=== PATIENT | male | born 1940 | race Caucasian/White ===

== ENCOUNTER 2019-01-11 15:04 | Inpatient (IN) | payer MEDICARE, BC ==
[~2019-01-11] VITALS: Ht 175.3 cm; Wt 79.6 kg
[2019-01-11 15:10] VITALS: BP 98/56
--- NOTE | 2019-01-11 15:10 | NUR ---
ED Nurse Note: Patient came to ER via ambulance from SNF facility. Patient is here for an abormal lab. Patient is a dialysis patient with a hemodialysis access on the right upper chest. Patient has wounds on the sacral region, bilateral hips, and right foot and heel. patient has a left aka. Patient AAOx 3, patient came in on nasal cannula oxygen of 4L/min. No respiratory distress noted. No cardiac distress noted. Placed patient on school lunch monitor.
--- NOTE | 2019-01-11 15:11 | Emergency Room Report ---
History of Present Illness General Chief Complaint: Abnormal Labs Source: Patient Present Illness HPI 78-year-old male history of stroke, end-stage renal disease dialysis Thursday presents with elevated BUN and creatinine, patient was sent in for further dialysis, apparently his dialysis catheter was having issues yesterday when he was receiving dialysis. Patient denies any fever chills chest pain shortness of breath patient feels completely fine, his elevated BUN CR was elevated yesterday alleviated by dialysis aggravated by not having dialysis. Severity is mild. patient presents for dialysis. Allergies: Coded Allergies: PENICILLINS (Verified Allergy, Unknown, 01/11/19) Patient History Past Medical History: see triage record Reviewed Nursing Documentation: PMH: Agreed; PSxH: Agreed Nursing Documentation-PMH Past Medical History: No History, Except For Hx Hypertension: Yes - HYPERLIPIDEMIA Hx Diabetes: Yes Hx Dialysis: Yes Review of Systems All Other Systems: negative except mentioned in HPI Physical Exam Vital Signs Date Time Temp Pulse Resp B/P (MAP) Pulse Ox O2 Delivery O2 Flow Rate FiO2 01/11/19 15:01 98.2 75 20 136/61 (86) 96 Room Air Sp02 EP Interpretation: reviewed, normal General Appearance: well appearing, no apparent distress, alert Head: normocephalic, atraumatic Eyes: bilateral eye PERRL, bilateral eye EOMI, bilateral eye conjunctivae pale ENT: uvula midline, moist mucus membranes Neck: supple, thyroid normal, supple/symm/no masses Respiratory: no respiratory distress, no retraction, no accessory muscle use, crackles Cardiovascular #1: normal peripheral pulses, regular rate, rhythm, no edema, no gallop, no murmur Gastrointestinal: non tender, soft, no guarding, no rebound Musculoskeletal: normal inspection Neurologic: alert, responsive, other - contractures Psychiatric: mood/affect normal Skin: warm/dry, other - bed sores present Medical Decision Making Diagnostic Impression: Primary Impression: Abnormal laboratory test result Additional Impressions: Inadequate dialysis Dialysis patient Signs and symptoms of anemia ER Course 78-year-old male presents with increased BUN and creatinine, concern for not enough dialysis patient was having issues with dialysis 01/10/2019 Patient found to have interstitial edema as well as an elevated BUN and creatinine as well as signs symptoms of anemia We will send patient to telemetry for more dialysis and possible transfusion deferring to primary. Laboratory Tests Test 01/11/19 15:20 White Blood Count 11.0 K/UL (4.8-10.8) H Red Blood Count 2.58 M/UL (4.70-6.10) L Hemoglobin 7.4 G/DL (14.2-18.0) L Hematocrit 23.0 % (42.0-52.0) L Mean Corpuscular Volume 89 FL (80-99) Mean Corpuscular Hemoglobin 28.6 PG (27.0-31.0) Mean Corpuscular Hemoglobin Concent 32.1 G/DL (32.0-36.0) Red Cell Distribution Width 15.3 % (11.6-14.8) H Platelet Count 292 K/UL (150-450) Mean Platelet Volume 5.0 FL (6.5-10.1) L Neutrophils (%) (Auto) % (45.0-75.0) Lymphocytes (%) (Auto) % (20.0-45.0) Monocytes (%) (Auto) % (1.0-10.0) Eosinophils (%) (Auto) % (0.0-3.0) Basophils (%) (Auto) % (0.0-2.0) Neutrophils % (Manual) Pending Lymphocytes % (Manual) Pending Platelet Estimate Pending Platelet Morphology Pending Sodium Level 137 MMOL/L (136-145) Potassium Level 4.1 MMOL/L (3.5-5.1) Chloride Level 97 MMOL/L (98-107) L Carbon Dioxide Level 27 MMOL/L (21-32) Anion Gap 13 mmol/L (5-15) Blood Urea Nitrogen 158 mg/dL (7-18) H Creatinine 5.3 MG/DL (0.55-1.30) H Estimate Glomerular Filtration Rate mL/min (>60) Glucose Level 192 MG/DL (74-106) H Calcium Level 9.1 MG/DL (8.5-10.1) Phosphorus Level 3.3 MG/DL (2.5-4.9) Magnesium Level 2.4 MG/DL (1.8-2.4) Total Bilirubin 0.3 MG/DL (0.2-1.0) Aspartate Amino Transferase (AST) 32 U/L (15-37) Alanine Aminotransferase (ALT) 30 U/L (12-78) Alkaline Phosphatase 171 U/L (46-116) H Total Protein 7.4 G/DL (6.4-8.2) Albumin 1.8 G/DL (3.4-5.0) L Globulin 5.6 g/dL Albumin/Globulin Ratio 0.3 (1.0-2.7) L Lipase 226 U/L (73-393) EKG Diagnostic Results EKG Time: 15:18 EP Interpretation: NSR, rate 71, QTc 45, no acute ST elevations, normal axis Rhythm Strip Diag. Results Rhythm Strip Time: 16:46 EP Interpretation: yes Rate: 76 Rhythm: NSR, no PVC's, no ectopy Chest X-Ray Diagnostic Results Chest X-Ray Diagnostic Results : Chest X-Ray Ordered: Yes # of Views/Limited/Complete: 1 View Indication: Other - preop EP Interpretation: Yes Interpretation: other - Interstitial edema Impression: Other - interstitial edema Last Vital Signs Date Time Temp Pulse Resp B/P (MAP) Pulse Ox O2 Delivery O2 Flow Rate FiO2 01/11/19 15:01 98.2 75 20 136/61 (86) 96 Room Air Disposition: ADMITTED INPATIENT Condition: Stable Yon Osorio MD Jan 11, 2019 15:11
--- NOTE | 2019-01-11 15:23 | NUR ---
ED Nurse Note: x-ray at bedside
--- NOTE | 2019-01-11 15:56 | Diagnostic Imaging Report ---
Indication: Dyspnea Comparison: None A single view chest radiograph was obtained. Findings: Reticular and groundglass opacities demonstrated throughout both lung sevilla. Right jugular permacath is in good position. Heart is mildly enlarged. The bones are osteopenic. IMPRESSION: Suspicion of interstitial edema. Correlate clinically
[2019-01-11 16:00] VITALS: BP 105/45
--- NOTE | 2019-01-11 16:10 | NUR ---
ED Nurse Note: Patient resting in bed, AAOx3 and no complaints of pain noted. Patient has no signs of respiratory distress or cardiac distress.
[2019-01-11 16:27] LABS: ANION GAP 13 mmol/L (5-15); BLOOD UREA NITROGEN 158 mg/dL (7-18); CALCIUM 9.1 MG/DL (8.5-10.1); CARBON DIOXIDE 27 MMOL/L (21-32); CHLORIDE 97 MMOL/L (98-107); CREATININE 5.3 MG/DL (0.55-1.30); POTASSIUM 4.1 MMOL/L (3.5-5.1); SODIUM 137 MMOL/L (136-145)
[2019-01-11 16:28] LABS: ALANINE AMINOTRANSFERASE 30 U/L (12-78); ALBUMIN 1.8 G/DL (3.4-5.0); ALBUMIN/GLOBULIN RATIO 0.3 (1.0-2.7); ALKALINE PHOSPHATASE 171 U/L (46-116); ASPARTATE AMINO TRANSFERASE 32 U/L (15-37); BILIRUBIN,TOTAL 0.3 MG/DL (0.2-1.0); PHOSPHORUS 3.3 MG/DL (2.5-4.9)
[2019-01-11 16:34] LABS: HEMOGLOBIN 7.4 G/DL (14.2-18.0); MEAN CORPUSCULAR VOLUME 89 FL (80-99); PLATELET COUNT 292 K/UL (150-450); RED BLOOD COUNT 2.58 M/UL (4.70-6.10); RED CELL DISTRIBUTION WIDTH 15.3 % (11.6-14.8)
[2019-01-11] MEDS ORDERED: LACTULOSE20 GM/301 GT (16:36)
[2019-01-11] MEDS ORDERED: NEPHROVITE1 TAB GT (16:36)
[2019-01-11] MEDS ORDERED: ZOCOR20 M1 GT (16:36)
[2019-01-11] MEDS ORDERED: ACETAMINOPHEN500 M3 GT (16:36)
[2019-01-11] MEDS ORDERED: OMEPRAZOLE40 M1 GT (16:36)
[2019-01-11] MEDS ORDERED: COREG6.25 MG ORAL (16:36)
[2019-01-11] MEDS ORDERED: LANTUS SOL100 UNIT/1 SUBQ (16:36)
[2019-01-11] MEDS ORDERED: HUMALOG100 UNIT/1 SUBQ (16:36)
[2019-01-11] MEDS ORDERED: DOCUSATE SODIU100 MG GT (16:38)
[2019-01-11] MEDS ORDERED: GUAIFENESIN-DM 15 ML GT (16:38)
[2019-01-11] MEDS ORDERED: MELATONIN 3 MG1 EAC1 GT (16:38)
[2019-01-11 17:00] VITALS: BP 122/54
--- NOTE | 2019-01-11 17:50 | NUR ---
ED Nurse Note: Gave patient report to GERALD Xavier for admission to Telemetry.
[2019-01-11 17:53] LABS: FERRITIN 1095 NG/ML (8-388)
[2019-01-11] MEDS ORDERED: Docusate 100mg cap ORAL SCH (18:00)
[2019-01-11 18:15] VITALS: BP 96/43
--- NOTE | 2019-01-11 18:15 | NUR ---
NURSE NOTES: Patient received from ER. Patient stable at this time, AOx2 with no complaints of pain and no s/sx of distress. RR even and unlabored on 4L NC. Condom Catheter placed on patient. WCP taken and initial wound care performed using optifoam on RT foot heel and lateral foot. RT and LT buttock with triad and optifoam, and sacral hydrogel wet to dry dressing covered with optifoam. Gtube in place with dressing changed. contact center manager placed on patient. Will continue to monitor.
--- NOTE | 2019-01-11 18:17 | NUR ---
ED Nurse Note: Received a telephone order from Dr. Derek Zarate for 1 unit of PRBC for HGB of 7.4. Charge Nurse GERALD Bliss notified and I was instructed to ask MARTIN Osorio order. MARTIN notified and okay to transfer patient at this time. Dr. Osorio stated he will place order for 1 unit PRBCs. Informed receiving Morenita DUARTE about admitting MD order .
[2019-01-11 18:19] LABS: % IRON SATURATION 19 % (15-50); IRON 28 ug/dL (50-175); TOTAL IRON BINDING CAPACITY 144 ug/dL (250-450)
--- NOTE | 2019-01-11 18:20 | NUR ---
ED Nurse Note: CORRECTION ON DR'S NAME- GERALD DELEON RECEIVED A CALL FROM DAISY SCHNEIDER.
--- NOTE | 2019-01-11 18:40 | NUR ---
ED Nurse Note: Patient transferred via gurney in stable condition to Telemetry with 2 RNs.
[2019-01-11 19:45] VITALS: BP 104/45
--- NOTE | 2019-01-11 19:54 | NUR ---
HAND-OFF: Report given to Burke Lehman RN. Patient stable. Endorsed that admission needs to be completed and wound care photos need to be uploaded.
--- NOTE | 2019-01-11 19:57 | NUR ---
NURSE NOTES: Patient received from GERALD Larkin alert and oriented x2 to name and place only with no acute s/s of distress noted. On 4L NC, breathing even and unlabored. Gtube noted on R upper quad of abdomen. Patient has multiple wounds on sacral, L and R ischium, R heel, and R lateral foot. WCP initiated. Pt has Left AKA. Belongings with patient upon admission, accompanied by Rubina Decker. IV site asymptomatic and patent, on R fa 20g, saline lock. Bed in lowest position, Call light and belongings within reach.
--- NOTE | 2019-01-11 20:01 | NUR ---
NURSE NOTES: Spoke with Dr. Kashmir Gomez, who stated that pt requires 1 unit of PRBC. Will carry out orders.
[2019-01-11] MEDS ORDERED: ZINC SULFATE220 M2 GT (20:27)
[2019-01-11] MEDS ORDERED: FAMOTIDINE20 MG GT (20:27)
[2019-01-11] MEDS ORDERED: PROSCAR5 MG GT (20:27)
[2019-01-11] MEDS ORDERED: VITAMIN C 250250 MG GT (20:27)
--- NOTE | 2019-01-11 20:35 | NUR ---
NURSE NOTES: Left message with Dr. Santoro's office for admission orders.
--- NOTE | 2019-01-11 20:58 | NUR ---
NURSE NOTES: Received call from Dr. Santoro for admission orders, will carry out orders. Will continue plan of care.
[2019-01-11] MEDS ORDERED: Carvedilol 6.25mg Tab ORAL SCH (21:00)
[2019-01-11] MEDS ORDERED: Pantoprazole Inj IVP SCH (21:00)
[2019-01-11] MEDS ORDERED: Atorvastatin 20mg tab ORAL SCH (21:00)
[2019-01-11] MEDS: Atorvastatin 20mg tab GT SCH (21:03)
[2019-01-11] MEDS: Carvedilol 6.25mg Tab GT SCH (21:03)
[2019-01-11] MEDS ORDERED: Acetaminophen 500mg (ES) tab ORAL SCH (22:00)
--- NOTE | 2019-01-11 22:30 | NUR ---
NURSE NOTES: Called [facility] to schedule Hemodialysis and spoke with Meka. Currently awaiting confirmation.
--- NOTE | 2019-01-11 22:30 | History and Physical Report ---
DATE OF ADMISSION: 01/11/2019 HISTORY OF PRESENT ILLNESS: The patient has end-stage renal disease. BUN is critically high. There was some problem with his dialysis catheter, which we are going to check also. The patient needs to get multiple dialysis to bring down the BUN. Also, the patient seems to be anemic. The patient is relatively a poor historian. Denies nausea, vomiting, or diarrhea. Denies fever or chills. Denies shortness of breath. Denies cough. Denies chills. PAST MEDICAL HISTORY: End-stage renal disease, chronic anemia of renal disease, NIDDM, GERD, hyperlipidemia, history of constipation, BPH. PAST SURGICAL HISTORY: Dialysis shunt access on the chest wall, left BKA. SOCIAL HISTORY: History of smoking. No history of alcohol or illicit drugs. Comes from a custodial. ALLERGIES: To penicillin. MEDICATIONS: Coreg, Colace, famotidine, finasteride, insulin, lactulose, omeprazole, simvastatin. FAMILY HISTORY: Noncontributory. REVIEW OF SYSTEMS: HEENT: Denies headaches. PULMONARY: Denies shortness of breath. Denies cough. CARDIOVASCULAR: Denies chest pain. GASTROINTESTINAL: Denies nausea, vomiting, or diarrhea. EXTREMITIES: Denies pain. CENTRAL NERVOUS SYSTEM: Denies change in vision or speech pattern. PHYSICAL EXAMINATION: VITAL SIGNS: Temperature is 98.5, pulse is 70, blood pressure is 98/56. HEENT: PERRLA. NECK: Supple. No lymphadenopathy. CHEST: Clear to auscultation. CARDIOVASCULAR: Regular rate and rhythm. No murmurs or extra sounds. GASTROINTESTINAL: Soft. Positive bowel sounds. No organomegaly. EXTREMITIES: 1+ edema. Reflexes on both sides. Able to move all extremities. LABORATORY DATA: WBC of 11, hemoglobin 7.4, platelets of 292. Sodium 137, potassium 4.1, BUN of 158, creatinine of , glucose of 192. ASSESSMENT AND PLAN: End-stage renal disease and anemia. The patient has severe anemia and has also problem with possible accessing the dialysis access on the chest. I have asked Dr. Eckert, Dr. Kashmir Gomez to see the patient for the above-mentioned diagnoses and treatment. Fatou Santoro M.D. DR: RITCHIE JOB#: [id number] CC:
[2019-01-12] VITALS (7 sets, daily range): BP systolic 104–148; BP diastolic 51–80
[2019-01-12] MEDS: NovoLOG Insulin Flexpen SUBQ SCH ×4 (00:30→17:56)
--- NOTE | 2019-01-12 04:44 | NUR ---
NURSE NOTES: Called [facility] Neph[facility] again, endorsed no call back from José Luis KOCH RN to Meka from [facility]. Currently awaiting call back.
[2019-01-12 05:11] LABS: HEMATOCRIT 22.6 % (42.0-52.0); HEMOGLOBIN 7.3 G/DL (14.2-18.0); MEAN CORPUSCULAR VOLUME 90 FL (80-99); PLATELET COUNT 293 K/UL (150-450); RED BLOOD COUNT 2.52 M/UL (4.70-6.10); RED CELL DISTRIBUTION WIDTH 14.9 % (11.6-14.8); WHITE BLOOD COUNT 11.5 K/UL (4.8-10.8)
[2019-01-12 06:34] LABS: ALANINE AMINOTRANSFERASE 43 U/L (12-78); ALBUMIN 1.8 G/DL (3.4-5.0); ALBUMIN/GLOBULIN RATIO 0.3 (1.0-2.7); ALKALINE PHOSPHATASE 158 U/L (46-116); ANION GAP 15 mmol/L (5-15); ASPARTATE AMINO TRANSFERASE 40 U/L (15-37); BILIRUBIN,TOTAL 0.3 MG/DL (0.2-1.0); BLOOD UREA NITROGEN 165 mg/dL (7-18); CALCIUM 9.4 MG/DL (8.5-10.1); CARBON DIOXIDE 25 MMOL/L (21-32); CHLORIDE 98 MMOL/L (98-107); CREATINE KINASE 31 U/L (26-308); CREATININE 5.5 MG/DL (0.55-1.30); GAMMA GLUTAMYL TRANSPEPTIDASE 50 U/L (5-85); PHOSPHORUS 4.3 MG/DL (2.5-4.9); POTASSIUM 4.4 MMOL/L (3.5-5.1); SODIUM 138 MMOL/L (136-145)
--- NOTE | 2019-01-12 07:14 | NUR ---
HAND-OFF: Report given to GERALD Kumar. Plan of care endorsed.
--- NOTE | 2019-01-12 07:40 | NUR ---
NURSE NOTES: Received report from Burke/RN, Patient is asleep, lying semi-carmona's, resting comfortably. On 4L nasal canula, breathing evenly, no acute distress/SOB noted. IV on Right FA patent, no bleeding or infiltration noted. Condom cath draining well to gravity. Bed in low position and locked, Bed alarm engaged. Call light within reach, Encouraged to use call light when needed. Will continue plan of care.
[2019-01-12] MEDS ORDERED: Docusate 100mg/10ml Liq GT SCH (09:00)
[2019-01-12] MEDS: Zinc Sulfate 220mg cap GT SCH (09:29)
[2019-01-12] MEDS: Lactulose 20gm/30ml UDC GT SCH (09:29)
[2019-01-12] MEDS: Nephrovite tab (Rena-Vite) GT SCH (09:29)
[2019-01-12] MEDS: Carvedilol 6.25mg Tab GT SCH ×2 (09:30→20:28)
[2019-01-12] MEDS: Levemir Flexpen SUBQ SCH ×2 (09:30→17:58)
[2019-01-12] MEDS ORDERED: Cathflo Alteplase 2mg Inj INJ ONE (10:00)
--- NOTE | 2019-01-12 11:16 | Consultation ---
Consult Note Consult Note asked to eval at the request of Dr Cummings for dialysis management non historian ER: HPI 78-year-old male history of stroke, end-stage renal disease dialysis Thursday presents with elevated BUN and creatinine, patient was sent in for further dialysis, apparently his dialysis catheter was having issues yesterday when he was receiving dialysis. Patient denies any fever chills chest pain shortness of breath patient feels completely fine, his elevated BUN CR was elevated yesterday alleviated by dialysis aggravated by not having dialysis. Severity is mild. patient presents for dialysis. Allergies: PENICILLINS (Verified Allergy, Unknown, 01/11/19) Past Medical History: No History, Except For Hx Hypertension: Yes - HYPERLIPIDEMIA Hx Diabetes: Yes Hx Dialysis: Yes examined data reviewed Assessment/Plan Malfunctioning dialysis catheter ESRD , Uremia DM OOC Anemia of CKD BPH ANCA kidney Dialysis trial after Alteplase or change the cath by IR EPO Per consultants 2D echo Juan Eckert MD Jan 12, 2019 11:15
--- NOTE | 2019-01-12 11:28 | NUR ---
RD ASSESSMENT & RECOMMENDATIONS SEE CARE ACTIVITY FOR COMPLETE ASSESSMENT DAILY ESTIMATED NEEDS: Needs based on ESRD+ HD, advanced wounds/ 66kg 30-35 kcals/kg 0888-4815 total kcals 1.5-2.0 g protein/kg 99-132 g total protein 20-22 mL/kg 2969-5957 total fluid mLs NUTRITION DIAGNOSIS: * Swallowing difficulty R/T dysphagia as evidenced by pt is PEG dep. * Increased kcal/prot needs R/T wound healing and HD dep as evidenced by admitted w/ multiple advanced wounds, pending eval, h/o ESRD dx, on HD. CURRENT TF:Nepro @ 50ml/hr x 18 hrs ENTERAL NUTRITION RECOMMENDATIONS: Nepro @ 50ml/hr x 24 hrs + Prosource 1pkt QD to provide 1200ml, 2160kcal, 97g + 11g prot, 872ml free water Rec to increase goal rate and run time -> Increase goal rate to 50ml/hr x 24 hrs -> add Prosource 1pkt daily to better meet protein needs -> HOB over 30 degrees/ water flush per MD ADDITIONAL RECOMMENDATIONS: * Calibrated bedscale wt post HD * Wound healing: Continue Nephrovite x 1 : add Jeremy 1pkt BID * Monitor renal labs + lytes
[2019-01-12] MEDS: Docusate 100mg/10ml Liq GT SCH ×2 (12:29→17:55)
[2019-01-12 12:55] LABS: INR 1.1 (0.9-1.1)
--- NOTE | 2019-01-12 13:54 | NUR ---
NURSE NOTES:WOUND CARE NOTES:Pt presented on admission with multiple pressure injuries. 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 Full thickness sacral pressure that is malodorous (L)7.5cm x (W)5cm x (D)2.9cm, undermining clockwise9-5 by 2.3cm @9o'clock. Base of wound has 60% slough at base. Sacral bone palpable. Edges and periwound are erythematous with scattered slough. Epibole noted along edges.Small amt brownish exudate noted. At left of sacral wound additional opening measuring 8.8cm x (W)2.5cm with 75% slough . Additional openings and erythema also noted to R of sacral wound. Unstageable pressure injury R ischium . Base of has 100% soft necrosis with surrounding erythematous and moist borders. Wound is malodorous(L)1.7cm x (W)1.7cm. Non-blanching erythema with shearing periwound. Unstageable pressure injury L ischium. Base of wound is 100% necrotic with red and indurated borders. Wound is malodorous. Non-blanching erythema periwound.(L)4.7cm x (W)2.3cm. Base of scrotum is erythematous. Unstageable pressure injury R heel. Base of wound is 100% soft necrosis with detached borders that erythematous with small amt of slough. Wound is malodorous.(L)1.8cm x (W)2cm. Unstageable pressure injury lateral R foot . Base of wound is 100% stable dry eschar. Edges area adherent and flat. NO odor noted. Periwound without erythema ,induration or fluctuance.(L)1cm x (W)1cm. Blood blisters noted to dorsal R 4thmetatarsal, and R 5th metatarsal dorsal and lateral aspect. In web space of R 4th metatarsal at base,full thickness ulcer noted with small amt sanguineous exudate. Wound is malodorous.(L)0.9cm x (W)1.2cm. Tx.plan: Cleanse sacral wound with Dakin's ashok 0.125%. Loosely pack wound with Dakin's moistened Kerlix. Apply Moisture Barrier Paste periwound. Cover with Optifoam drsg Twice daily and prn. Cleanse wound R ischium with Dakin's ashok 0.125%. Apply Dakin's moist gauze. Apply Moisture Barrier periwound. Cover with Optifoam drsg Twice Daily and prn. Cleanse wound L Ischium with Dakin's ashok 0.125%. Apply Dakin's moist Gauze. Cover with Optifoam drsg Twice Daily and prn. Apply Betadine to R heel,lateral R foot.Cover with Abd pad and wrap with kerlix Daily and prn. Apply Betadine to wound web space of R 4th metatarsal.Separate toes with Gauze. Wrap with Kerlix Daily and prn. Swab Blisters R 4th and 5th metatarsals with Betadine Daily. Apply Moisture Barrier Paste to scrotum with each incontinence care. APM/HAM Mattress overlay. Reposition at least every 2hours or as tolerated. Place pillow between R knee and L AKA. Off-load R heel with pillow.
--- NOTE | 2019-01-12 14:44 | Cardiology Report ---
APPROVED REPORT EXAM: Two-dimensional and M-mode echocardiogram with Doppler and color Doppler. INDICATION Congestive Heart Failure M-Mode DIMENSIONS IVSd1.2 (0.7-1.1cm)Left Atrium (MM)3.8 (1.6-4.0cm) LVDd3.7 (3.5-5.6cm)Aortic Root3.2 (2.0-3.7cm) PWd1.1 (0.7-1.1cm)Aortic Cusp Exc.1.8 (1.5-2.0cm) LVDs2.2 (2.5-4.0cm) PWs1.8 cm Normal left ventricular chamber size, systolic function and wall motion. Left ventricular ejection fraction estimated to be 65-70 %. No left ventricular hypertrophy. Anterior Echo-free space, may be due to pericardial fat or effusion. All other cardiac chamber sizes are within normal limits. Focal aortic valve sclerosis with adequate cusp excursion. Thickened mitral valve leaflets with normal excursion. Mitral annulus and aortic root calcification. Normal pulmonic valve structure. Normal tricuspid valve structure. IVC at normal size with physiologic collapse. Subcostal view not obtainable due to G-tube. A color flow and spectral Doppler study was performed and revealed: No aortic regurgitation. Trace mitral regurgitation. Mitral inflow indicates normal left ventricular diastolic function. Mild to moderate tricuspid regurgitation. Tricuspid systolic velocities suggests peak right ventricular systolic pressure of 52 mmHg consistent with moderate pulmonary hypertension. Mild pulmonic regurgitation present.
--- NOTE | 2019-01-12 15:00 | Diagnostic Imaging Report ---
Indication: Acute renal failure Technique: Grayscale and duplex images of the kidneys, retroperitoneum, and bladder were obtained. Comparison: none Findings: Right kidney measures 10.4 cm in length. Left kidney measures 9.5 cm in length. Both kidneys demonstrate normal echogenicity. No hydronephrosis. Centimeters trace perinephric fluid on the right. There are renal cysts bilaterally. Echogenic shadowing focus is seen in the left renal sinus. Normal inferior vena cava. Bladder demonstrates apparent posterior wall thickening versus layering debris versus mural mass. Calculate bladder volume 77 mL. Patient did not wish to void at the time of exam Impression: Negative for hydronephrosis Nonspecific trace right perinephric fluid, renal inflammation possible. Correlate with laboratory findings. Normal renal size and echogenicity Probable layering debris within the bladder, but mass lesion not excludable as etiology of this finding. Apparent bladder wall thickening. Consider cystoscopy for further evaluation Calculated bladder volume 77 mL. Patient had no urge to void at the time of exam. Findings discussed by phone with Dr. Eckert at the time of interpretation
--- NOTE | 2019-01-12 15:06 | Cardiology Report ---
APPROVED REPORT EKG Measurement Heart [id number] Normal sinus rhythm Nonspecific T wave abnormality Abnormal ECG
[2019-01-12] MEDS ORDERED: Clindamycin 600mg 50 ML IV ONE (15:15)
--- NOTE | 2019-01-12 15:34 | Pre-Procedure Note/Attestation ---
Pre-Procedure Note/Attestation Complete Prior to Procedure Planned Procedure: not applicable Procedure Narrative: permacath exchange Indications for Procedure Pre-Operative Diagnosis: malfunctioning permacath Attestation I attest that I discussed the nature of the procedure; its benefits; risks and complications; and alternatives (and the risks and benefits of such alternatives ), prior to the procedure, with the patient (or the patient's legal business services sales representative). I attest that, if there was a reasonable possibility of needing a blood transfusion, the patient (or the patient's legal business services sales representative) was given the [facility] standardized written summary, pursuant to the Magdiel Lusby Blood Safety Act ([place] Health and Safety Code # 1645, as amended). I attest that I re-evaluated the patient just prior to the surgery and that there has been no change in the patient's H&P, except as documented below: Discussed by phone with pt's. Jim Chilel MD Jan 12, 2019 15:34
--- NOTE | 2019-01-12 15:45 | NUR ---
REPLACEMENT OF PERMA CATH BY DR. ROSALINDA VIVAS DONE AT 1500 HRS. FA
--- NOTE | 2019-01-12 16:12 | Brief Operative Note ---
Immediate Post Operative Note Operative Note Pre-op Diagnosis: malfunctioning permacath Procedure: permacath replacement Post-op Diagnosis: same as pre-op Surgeon: Sarai Saucedo Specimen: none Complications: none Fluids: none Implant(s) used?: No Jim Saucedo MD Jan 12, 2019 16:12
--- NOTE | 2019-01-12 16:14 | NUR ---
CASE MANAGEMENT: INITIAL REVIEW 78 Y[facility] OLD [facility] CC: ABNORMAL LABS SI: RENAL FAILURE ON HD . ANEMIA 98.2 75 20 136/61 96% ON RA RBC 2.58 H/H 7.4/23.0 BUN 158 CREAT 5.3 BG 192 IS: IVF NS X1 \: 2E TELE UNIT DCP: RETURN TO FACILITY WHEN MEDICALLY CLEARED PLAN: WOUND CARE BL TX X1
--- NOTE | 2019-01-12 16:21 | Diagnostic Imaging Report ---
Indications: Needs long-term dialysis access Technique: Patient given IV Ancef. Total sterile technique, including sterile probe cover and sterile gel, sterile gloves, hand hygiene, hat, mask,, sterile gown, large sterile drape, and preparation with 2% chlorhexidine utilized. Local anesthesia with 1% lidocaine. The cuff was free, as the pre-existing catheter had only been in place for one week. Through the pre-existing catheter, a dense and guidewire was inserted through the venous lumen, and directed into the inferior vena cava. The pre-existing catheter was removed. A new 27 cm BioFlo catheter, size 3 cm longer than the pre-existing catheter, was inserted over the guidewire. The guidewire was removed Digital radiograph documents satisfactory catheter tip position in the high right atrium, no kinking at the insertion site. Both catheter ports aspirated and flushed. Catheter was fixed to the skin. Patient tolerated procedure well without immediate complication. Total fluoroscopy time 66.5 seconds. Total dose area product 0.03773 mGym2 Total number of images-one Comparison: None. Findings: Completion radiograph documents satisfactory position and course of the catheter, catheter tip at the high right atrium. Impression: Successful exchange of previously malfunctioning of right transjugular tunneled dialysis catheter, as described above
--- NOTE | 2019-01-12 16:25 | NUR ---
NURSE NOTES: Patient is receiving blood, 15 minute Vitals are taken, VS are within normal range, Will continue to monitor.
--- NOTE | 2019-01-12 17:43 | General Progress Note ---
Assessment/Plan Problem List: (1) Inadequate dialysis SNOMED: 994660180 (2) Abnormal laboratory test result ICD Codes: R89.9 - Unspecified abnormal finding in specimens from other organs , systems and tissues SNOMED: 854428008 (3) Dialysis patient ICD Codes: Z99.2 - Dependence on renal dialysis SNOMED: 152261470 (4) Signs and symptoms of anemia ICD Codes: D64.9 - Anemia, unspecified SNOMED: 62697678, 161136842 Status: progressing Assessment/Plan: problem with diaylsis access.repair order will be given by dr rushing elevated /critical bun anemia no bleeding afebrile Subjective ROS Limited/Unobtainable: Yes Allergies: Coded Allergies: PENICILLINS (Verified Allergy, Unknown, 01/11/19) Objective Last 24 Hour Vital Signs Date Time Temp Pulse Resp B/P (MAP) Pulse Ox O2 Delivery O2 Flow Rate FiO2 01/12/19 16:04 97.9 74 18 135/77 (96) 97 74 01/12/19 14:48 78 20 01/12/19 12:00 98.3 75 18 116/59 (78) 97 75 01/12/19 12:00 68 01/12/19 09:30 75 131/51 01/12/19 09:00 Nasal Cannula 4.0 01/12/19 08:00 98.2 75 20 131/51 (77) 97 75 01/12/19 08:00 78 01/12/19 04:00 97.6 76 20 109/58 (75) 95 01/12/19 04:00 77 01/12/19 00:00 97.5 75 18 111/57 (75) 100 01/12/19 00:00 74 01/11/19 21:03 68 104/45 01/11/19 19:45 97.4 68 18 104/45 (64) 99 68 01/11/19 19:11 Nasal Cannula 4.0 01/11/19 19:07 98.5 70 17 98/56 98 Room Air 01/11/19 18:45 79 01/11/19 18:15 96.4 71 20 96/43 (60) 98 Intake and Output 01/11/19 01/12/19 18:59 06:59 Intake Total 20 ml Balance 20 ml Tube Feeding 20 ml Laboratory Tests 01/12/19 04:00: White Blood Count 11.5H, Red Blood Count 2.52L, Hemoglobin 7.3L, Hematocrit 22.6L, Mean Corpuscular Volume 90, Mean Corpuscular Hemoglobin 29.1, Mean Corpuscular Hemoglobin Concent 32.4, Red Cell Distribution Width 14.9H, Platelet Count 293, Mean Platelet Volume 4.7L, Neutrophils (%) (Auto) , Lymphocytes (%) (Auto) , Monocytes (%) (Auto) , Eosinophils (%) (Auto) , Basophils (%) (Auto) , Differential Total Cells Counted 100, Neutrophils % ( Manual) 79H, Lymphocytes % (Manual) 9L, Monocytes % (Manual) 9, Eosinophils % ( Manual) 2, Basophils % (Manual) 1, Band Neutrophils 0, Platelet Estimate Adequate, Platelet Morphology Normal, Hypochromasia 3+, Anisocytosis 1+, Spherocytes 1+, Sodium Level 138, Potassium Level 4.4, Chloride Level 98, Carbon Dioxide Level 25, Anion Gap 15, Blood Urea Nitrogen 165H, Creatinine 5.5H , Estimat Glomerular Filtration Rate , Glucose Level 119H, Calcium Level 9.4, Phosphorus Level 4.3, Magnesium Level 2.5H, Total Bilirubin 0.3, Gamma Glutamyl Transpeptidase 50, Aspartate Amino Transf (AST/SGOT) 40H, Alanine Aminotransferase (ALT/SGPT) 43, Alkaline Phosphatase 158H, Total Creatine Kinase 31, Troponin I 0.016, C-Reactive Protein, Quantitative 21.6H, Pro-B-Type Natriuretic Peptide 20759W, Total Protein 7.3, Albumin 1.8L, Globulin 5.5, Albumin/Globulin Ratio 0.3L, Thyroid Stimulating Hormone (TSH) 2.608 01/12/19 12:30: Prothrombin Time 11.3, Prothromb Time International Ratio 1.1, Activated Partial Thromboplast Time 25 Height (Feet): 5 Height (Inches): 9.00 Weight (Pounds): 158 Neck: supple Cardiovascular: normal rate Respiratory/Chest: lungs clear Fatou Santoro MD Jan 12, 2019 17:43
[2019-01-12] MEDS: Dakin's 0.125% Soln (Quarter Strength) 16oz TOPIC SCH (17:55)
--- NOTE | 2019-01-12 18:57 | Consultation ---
History of Present Illness General Date patient seen: Jan 12, 2019 Reason for Hospitalization: Abnormal Labs Present Illness HPI 78-year-old male history of stroke, end-stage renal disease dialysis Thursday presents with elevated BUN and creatinine, patient was sent in for further dialysis, apparently his dialysis catheter was having issues yesterday when he was receiving dialysis. Patient denies any fever chills chest pain shortness of breath patient feels completely fine, his elevated BUN CR was elevated yesterday alleviated by dialysis aggravated by not having dialysis. Severity is mild. patient presents for dialysis. on admission noted to have multiple wounds requiring care. surgery called to evaluate and assist with care Allergies: Coded Allergies: PENICILLINS (Verified Allergy, Unknown, 01/11/19) Medication History Scheduled Acetaminophen* (Acetaminophen Extra Strength*), 1,000 MG GT Q8HR, (Reported) Carvedilol (Coreg), 6.25 MG ORAL EVERY 12 HOURS, (Reported) Docusate Sodium* (Docusate Sodium*), 100 MG GT BID, (Reported) Famotidine* (Pepcid 20mg tablet*), 20 MG GT DAILY, (Reported) Finasteride* (Proscar*), 5 MG GT DAILY, (Reported) Guaifenesin/Dextromethorphan (Guaifenesin-Dm 100-10 mg/5 ml), 5 ML GT EVERY 8 HOURS, (Reported) Insulin Glargine (Lantus), 16 SUBQ BID, (Reported) Insulin Lispro (Humalog), 0 SUBQ EVERY 6 HOURS, (Reported) Lactulose (Lactulose*), 30 ML GT DAILY, (Reported) Melatonin/Pyridoxine HCl (B6) (Melatonin 3 mg Tablet), 2 EACH PO BEDTIME, ( Reported) Omeprazole (Omeprazole), 40 MG GT BID, (Reported) Simvastatin (Zocor), 20 MG ORAL BEDTIME, (Reported) Vitamin B Cmplx/Vit C/Folic AC (Nephro-Arminda Tablet), 1 TAB GT DAILY, (Reported) Zinc Sulfate (Zinc Sulfate), 220 MG GT DAILY, (Reported) Miscellaneous Medications Ascorbic Acid/Ascorbate Sodium (Vitamin C 250 mg Tablet Chew), 500 MG GT, ( Reported) Patient History Limited by: medical condition Healthcare decision maker N Resuscitation status Full Code Advanced Directive on File Past Medical/Surgical History Past Medical/Surgical History: (1) Inadequate dialysis (2) Abnormal laboratory test result (3) Dialysis patient (4) Signs and symptoms of anemia (5) Decubitus skin ulcer Review of Systems Review of Symptoms General ROS: no weight loss or fever Psychological ROS: no depression or mood changes, no memory loss Ophthalmic ROS: no visual changes or eye irritation ENT ROS: no nasal congestion, hearing loss, dizziness Allergy and Immunology ROS: no allergic symptoms or urticaria Hematological and Lymphatic ROS: no swollen glands, unusual bleeding or bruising Endocrine ROS: no polyuria, polydipsia, weight changes, temperature intolerance Respiratory ROS: no cough, shortness of breath, or wheezing Cardiovascular ROS: no chest pain or dyspnea on exertion Gastrointestinal ROS: denies abdominal pain, bright red blood in stool. Musculoskeletal ROS: no myalgias or arthralgias Neurological ROS: no TIA or stroke symptoms Dermatological ROS: no new or changing skin lesions, rashes or pruritis Physical Exam Physical Exam General appearance: alert, no distress, appears stated age Head: Normocephalic, without obvious abnormality, atraumatic Eyes: conjunctivae/corneas clear. PERRL, EOM's intact. Fundi benign Throat: Lips, mucosa, and tongue normal. Teeth and gums normal Neck: supple, symmetrical, trachea midline, no adenopathy, thyroid: not enlarged, symmetric, no tenderness/mass/nodules, no carotid bruit and no JVD Lungs: clear to auscultation bilaterally Heart: regular rate and rhythm, S1, S2 normal, no murmur, click, rub or gallop Abdomen: soft, non-tender. Bowel sounds normal. No masses, no organomegaly Extremities: extremities normal, atraumatic, no cyanosis or edema Pulses: symmetric Skin: as below Neurologic: Grossly normal Last 24 Hour Vital Signs Date Time Temp Pulse Resp B/P (MAP) Pulse Ox O2 Delivery O2 Flow Rate FiO2 01/12/19 16:04 97.9 74 18 135/77 (96) 97 74 01/12/19 16:00 68 01/12/19 14:48 78 20 01/12/19 12:00 98.3 75 18 116/59 (78) 97 75 01/12/19 12:00 68 01/12/19 09:30 75 131/51 01/12/19 09:00 Nasal Cannula 4.0 01/12/19 08:00 98.2 75 20 131/51 (77) 97 75 01/12/19 08:00 78 01/12/19 04:00 97.6 76 20 109/58 (75) 95 01/12/19 04:00 77 01/12/19 00:00 97.5 75 18 111/57 (75) 100 01/12/19 00:00 74 01/11/19 21:03 68 104/45 01/11/19 19:45 97.4 68 18 104/45 (64) 99 68 01/11/19 19:11 Nasal Cannula 4.0 01/11/19 19:07 98.5 70 17 98/56 98 Room Air Intake and Output 01/11/19 01/12/19 18:59 06:59 Intake Total 20 ml Balance 20 ml Tube Feeding 20 ml Laboratory Tests Test 01/12/19 04:00 01/12/19 12:30 White Blood Count 11.5 K/UL (4.8-10.8) H Red Blood Count 2.52 M/UL (4.70-6.10) L Hemoglobin 7.3 G/DL (14.2-18.0) L Hematocrit 22.6 % (42.0-52.0) L Mean Corpuscular Volume 90 FL (80-99) Mean Corpuscular Hemoglobin 29.1 PG (27.0-31.0) Mean Corpuscular Hemoglobin Concent 32.4 G/DL (32.0-36.0) Red Cell Distribution Width 14.9 % (11.6-14.8) H Platelet Count 293 K/UL (150-450) Mean Platelet Volume 4.7 FL (6.5-10.1) L Neutrophils (%) (Auto) % (45.0-75.0) Lymphocytes (%) (Auto) % (20.0-45.0) Monocytes (%) (Auto) % (1.0-10.0) Eosinophils (%) (Auto) % (0.0-3.0) Basophils (%) (Auto) % (0.0-2.0) Differential Total Cells Counted 100 Neutrophils % (Manual) 79 % (45-75) H Lymphocytes % (Manual) 9 % (20-45) L Monocytes % (Manual) 9 % (1-10) Eosinophils % (Manual) 2 % (0-3) Basophils % (Manual) 1 % (0-2) Band Neutrophils 0 % (0-8) Platelet Estimate Adequate Platelet Morphology Normal Hypochromasia 3+ Anisocytosis 1+ Spherocytes 1+ Sodium Level 138 MMOL/L (136-145) Potassium Level 4.4 MMOL/L (3.5-5.1) Chloride Level 98 MMOL/L (98-107) Carbon Dioxide Level 25 MMOL/L (21-32) Anion Gap 15 mmol/L (5-15) Blood Urea Nitrogen 165 mg/dL (7-18) H Creatinine 5.5 MG/DL (0.55-1.30) H Estimat Glomerular Filtration Rate mL/min (>60) Glucose Level 119 MG/DL (74-106) H Calcium Level 9.4 MG/DL (8.5-10.1) Phosphorus Level 4.3 MG/DL (2.5-4.9) Magnesium Level 2.5 MG/DL (1.8-2.4) H Total Bilirubin 0.3 MG/DL (0.2-1.0) Gamma Glutamyl Transpeptidase 50 U/L (5-85) Aspartate Amino Transf (AST/SGOT) 40 U/L (15-37) H Alanine Aminotransferase (ALT/SGPT) 43 U/L (12-78) Alkaline Phosphatase 158 U/L (46-116) H Total Creatine Kinase 31 U/L (26-308) Troponin I 0.016 ng/mL (0.000-0.056) C-Reactive Protein, Quantitative 21.6 mg/dL (0.00-0.90) H Pro-B-Type Natriuretic Peptide 81879 pg/mL (0-125) H Total Protein 7.3 G/DL (6.4-8.2) Albumin 1.8 G/DL (3.4-5.0) L Globulin 5.5 g/dL Albumin/Globulin Ratio 0.3 (1.0-2.7) L Thyroid Stimulating Hormone (TSH) 2.608 uiU/mL (0.358-3.740) Prothrombin Time 11.3 SEC (9.30-11.50) Prothromb Time International Ratio 1.1 (0.9-1.1) Activated Partial Thromboplast Time 25 SEC (23-33) Height (Feet): 5 Height (Inches): 9.00 Weight (Pounds): 158 Medications Current Medications Medications (Trade) Dose Ordered Sig/Mariangel Route PRN Reason Start Time Stop Time Status Last Admin Dose Admin Atorvastatin Calcium (Lipitor) 20 mg BEDTIME GT 01/11/19 21:03 02/10/19 20:59 Carvedilol (Coreg) 6.25 mg EVERY 12 HOURS GT 01/11/19 21:03 02/10/19 20:59 Dextrose (Dextrose 50%) 25 ml Q30M PRN IV Hypoglycemia 01/11/19 20:45 02/10/19 20:44 Dextrose (Dextrose 50%) 50 ml Q30M PRN IV Hypoglycemia 01/11/19 20:45 02/10/19 20:44 Docusate Sodium (Colace) 100 mg TID GT 01/12/19 13:00 02/10/19 17:59 01/12/19 17:55 Epoetin Bartolome (Epoetin Bartolome(ESRD on dialysis)) 10,000 unit THU-THU-THU SUBQ 01/12/19 21:00 02/11/19 20:59 Famotidine (Pepcid) 20 mg BID GT 01/12/19 18:00 02/11/19 17:59 01/12/19 17:55 Finasteride (Proscar) 5 mg DAILY ORAL 01/12/19 09:00 02/11/19 08:59 01/12/19 09:29 Insulin Aspart (NovoLOG) EVERY 6 HOURS SUBQ 01/12/19 00:00 02/11/19 00:00 01/12/19 17:56 Insulin Detemir (Levemir) 16 units BID SUBQ 01/12/19 09:00 02/11/19 08:59 01/12/19 17:58 Lactulose (Cephulac) 20 gm DAILY GT 01/12/19 09:00 02/11/19 08:59 01/12/19 09:29 Sodium Hypochlorite (Dakin's Quarter Strength) 1 applic BID TOPIC 01/12/19 18:00 02/11/19 17:59 01/12/19 17:55 Vitamin B Complex/ Vit C/Folic Acid (Nephrovite) 1 tab DAILY GT 01/12/19 09:00 02/11/19 08:59 01/12/19 09:29 Zinc Sulfate (Zinc Sulfate) 220 mg DAILY GT 01/12/19 09:00 02/11/19 08:59 01/12/19 09:29 Assessment/Plan Problem List: (1) Decubitus skin ulcer Assessment & Plan: Pt presented on admission with multiple pressure injuries. 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 Full thickness sacral pressure that is malodorous (L)7.5cm x (W)5cm x (D)2.9cm, undermining clockwise9-5 by 2.3cm @9o'clock. Base of wound has 60% slough at base. Sacral bone palpable. Edges and periwound are erythematous with scattered slough. Epibole noted along edges.Small amt brownish exudate noted. At left of sacral wound additional opening measuring 8.8cm x (W)2.5cm with 75% slough . Additional openings and erythema also noted to R of sacral wound. Unstageable pressure injury R ischium . Base of has 100% soft necrosis with surrounding erythematous and moist borders. Wound is malodorous(L)1.7cm x (W) 1.7cm. Non-blanching erythema with shearing periwound. Unstageable pressure injury L ischium. Base of wound is 100% necrotic with red and indurated borders. Wound is malodorous. Non-blanching erythema periwound.(L) 4.7cm x (W)2.3cm. Base of scrotum is erythematous. Unstageable pressure injury R heel. Base of wound is 100% soft necrosis with detached borders that erythematous with small amt of slough. Wound is malodorous.(L)1.8cm x (W)2cm. Unstageable pressure injury lateral R foot . Base of wound is 100% stable dry eschar. Edges area adherent and flat. NO odor noted. Periwound without erythema ,induration or fluctuance.(L)1cm x (W)1cm. Blood blisters noted to dorsal R 4thmetatarsal, and R 5th metatarsal dorsal and lateral aspect. In web space of R 4th metatarsal at base,full thickness ulcer noted with small amt sanguineous exudate. Wound is malodorous.(L)0.9cm x (W) 1.2cm. Tx.plan: Cleanse sacral wound with Dakin's ashok 0.125%. Loosely pack wound with Dakin's moistened Kerlix. Apply Moisture Barrier Paste periwound. Cover with Optifoam drsg Twice daily and prn. Cleanse wound R ischium with Dakin's ashok 0.125%. Apply Dakin's moist gauze. Apply Moisture Barrier periwound. Cover with Optifoam drsg Twice Daily and prn. Cleanse wound L Ischium with Dakin's ashok 0.125%. Apply Dakin's moist Gauze. Cover with Optifoam drsg Twice Daily and prn. Apply Betadine to R heel,lateral R foot.Cover with Abd pad and wrap with kerlix Daily and prn. Apply Betadine to wound web space of R 4th metatarsal.Separate toes with Gauze. Wrap with Kerlix Daily and prn. Swab Blisters R 4th and 5th metatarsals with Betadine Daily. Apply Moisture Barrier Paste to scrotum with each incontinence care. APM/HAM Mattress overlay. Reposition at least every 2hours or as tolerated. Place pillow between R knee and L AKA. Off-load R heel with pillow. ICD Codes: L89.90 - Pressure ulcer of unspecified site, unspecified stage SNOMED: 177501452 Lalo Rodriguez Jan 12, 2019 18:57
--- NOTE | 2019-01-12 19:25 | NUR ---
HAND-OFF: Report given to Maryana/RN, Patient is in stable condition. Endorsed plan of care.
--- NOTE | 2019-01-12 19:39 | NUR ---
NURSE NOTES: Received pt from GERALD Kumar. Pt awake, alert, and talkative. Bed in lowest position. HD nurse at bedside. Call light within reach. Will continue to monioto
[2019-01-12] MEDS ORDERED: [UNRECOGNIZED DRUG - OTHER] GT (19:50)
[2019-01-12] MEDS ORDERED: ACETAMINOPHEN325 M1 GT ×2 (19:50)
[2019-01-12] MEDS ORDERED: BISACODYL5 MG RECTAL (19:50)
[2019-01-12] MEDS: Atorvastatin 20mg tab GT SCH (20:27)
[2019-01-12] MEDS ORDERED: Epoetin Alfa-EPBX(ESRD on dialysis)10,000 unit/ml vial SUBQ SCH (21:00)
[2019-01-13 04:00] VITALS: BP 140/66
[2019-01-13] MEDS: NovoLOG Insulin Flexpen SUBQ SCH ×4 (05:25→18:30)
[2019-01-13 06:51] LABS: BASOPHILS % (AUTO) 0.3 % (0.0-2.0); EOSINOPHILS % (AUTO) 1.7 % (0.0-3.0); HEMATOCRIT 30.8 % (42.0-52.0); HEMOGLOBIN 10.4 G/DL (14.2-18.0); MEAN CORPUSCULAR VOLUME 88 FL (80-99); MONOCYTES % (AUTO) 6.4 % (1.0-10.0); NEUTROPHILS % (AUTO) 84.6 % (45.0-75.0); PLATELET COUNT 315 K/UL (150-450); RED BLOOD COUNT 3.51 M/UL (4.70-6.10); WHITE BLOOD COUNT 13.2 K/UL (4.8-10.8)
[2019-01-13 07:23] LABS: ALANINE AMINOTRANSFERASE 42 U/L (12-78); ALBUMIN 1.9 G/DL (3.4-5.0); ALBUMIN/GLOBULIN RATIO 0.3 (1.0-2.7); ALKALINE PHOSPHATASE 201 U/L (46-116); ANION GAP 12 mmol/L (5-15); ASPARTATE AMINO TRANSFERASE 46 U/L (15-37); BILIRUBIN,TOTAL 0.5 MG/DL (0.2-1.0); BLOOD UREA NITROGEN 82 mg/dL (7-18); CARBON DIOXIDE 26 MMOL/L (21-32); CHLORIDE 100 MMOL/L (98-107); CHOLESTEROL 93 MG/DL (< 200); CREATININE 3.7 MG/DL (0.55-1.30); GAMMA GLUTAMYL TRANSPEPTIDASE 66 U/L (5-85); HDL CHOLESTEROL 18 MG/DL (40-60); PHOSPHORUS 3.2 MG/DL (2.5-4.9); POTASSIUM 3.5 MMOL/L (3.5-5.1); SODIUM 138 MMOL/L (136-145); TRIGLYCERIDES 226 MG/DL (30-150)
--- NOTE | 2019-01-13 07:35 | NUR ---
HAND-OFF: Report given to GERALD Ramsay. Pt stable.
--- NOTE | 2019-01-13 07:40 | NUR ---
NURSE NOTES: Nurse report given by GERALD Mijares. Patient's awake in bed, AO x 1, confused, no pain or s/s of acute or SOB noted. Bed low and locked, call light within reach, side rails x 3, bed alarm is armed, billing machine operator is on. Patient's on tube feeding Nepro running at 50cc, no residuals. Wounds are noted on R food, R heel, sacral, R and L ischium. scrotum. IV is saline locked, patent and asymptomatic. Perma cath is in place. Patient's on 4 L of nasal cannula. Will continue to monitor.
[2019-01-13 08:00] VITALS: BP 136/66
[2019-01-13] MEDS: Zinc Sulfate 220mg cap GT SCH (08:23)
[2019-01-13] MEDS: Levemir Flexpen SUBQ SCH (08:25)
[2019-01-13] MEDS: Carvedilol 6.25mg Tab GT SCH ×2 (08:25→20:59)
[2019-01-13] MEDS: Docusate 100mg/10ml Liq GT SCH ×3 (08:26→18:29)
[2019-01-13] MEDS: Dakin's 0.125% Soln (Quarter Strength) 16oz TOPIC SCH ×2 (08:26→18:29)
[2019-01-13] MEDS: Nephrovite tab (Rena-Vite) GT SCH (08:26)
[2019-01-13] MEDS: Lactulose 20gm/30ml UDC GT SCH (08:26)
--- NOTE | 2019-01-13 09:57 | NUR ---
NURSE NOTES: Left message to Dr. 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 Awaiting for response and order.
--- NOTE | 2019-01-13 11:05 | Nephrology Progress Note ---
Assessment/Plan Problem List: (1) ESRD (end stage renal disease) on dialysis (2) Complications, dialysis, catheter, mechanical (3) Anemia in chronic kidney disease (CKD) Assessment Malfunctioning dialysis catheter ESRD , Uremia DM OOC Anemia of CKD BPH Plan ANCA kidney noted Dialysis done 01/12 after cath replaced by IR EPO Per consultants 2D echo dialysis again in am 01/14 Echo: Left ventricular ejection fraction estimated to be 65-70 %. No left ventricular hypertrophy. Subjective ROS Limited/Unobtainable: No Constitutional: Reports: malaise Objective Objective Last 24 Hour Vital Signs Date Time Temp Pulse Resp B/P (MAP) Pulse Ox O2 Delivery O2 Flow Rate FiO2 01/13/19 09:00 Nasal Cannula 4.0 01/13/19 08:25 84 136/66 01/13/19 08:00 97.5 84 19 136/66 (89) 94 84 01/13/19 08:00 82 01/13/19 04:00 97.5 90 19 140/66 (90) 97 90 01/13/19 04:00 90 01/13/19 00:00 79 01/12/19 21:00 Nasal Cannula 4.0 01/12/19 20:28 74 104/53 01/12/19 20:00 97.1 74 20 104/53 (70) 95 74 01/12/19 20:00 75 01/12/19 16:04 97.9 74 18 135/77 (96) 97 74 01/12/19 16:00 68 01/12/19 14:48 78 20 01/12/19 12:00 98.3 75 18 116/59 (78) 97 75 01/12/19 12:00 68 Intake and Output 01/12/19 01/13/19 19:00 07:00 Intake Total 130 ml Output Total 2000 ml Balance 130 ml -2000 ml Intake Free Water 100 ml Tube Feeding 30 ml Output Hemodialysis UF 2000 ml # Bowel Movements 4 Laboratory Tests 01/12/19 12:30: Prothrombin Time 11.3, Prothromb Time International Ratio 1.1, Activated Partial Thromboplast Time 25 01/13/19 05:56: White Blood Count 13.2H, Red Blood Count 3.51L, Hemoglobin 10.4#L, Hematocrit 30.8#L, Mean Corpuscular Volume 88, Mean Corpuscular Hemoglobin 29.6, Mean Corpuscular Hemoglobin Concent 33.8, Red Cell Distribution Width 14.0, Platelet Count 315, Mean Platelet Volume 4.7L, Neutrophils (%) (Auto) 84.6H, Lymphocytes (%) (Auto) 7.0L, Monocytes (%) (Auto) 6.4, Eosinophils (%) (Auto) 1.7, Basophils (%) (Auto) 0.3, Sodium Level 138, Potassium Level 3.5, Chloride Level 100, Carbon Dioxide Level 26, Anion Gap 12, Blood Urea Nitrogen 82#H, Creatinine 3.7H, Estimat Glomerular Filtration Rate , Glucose Level 186H, Hemoglobin A1c 7.3H, Uric Acid 5.5, Calcium Level 9.0, Phosphorus Level 3.2, Magnesium Level 2.1, Total Bilirubin 0.5, Gamma Glutamyl Transpeptidase 66, Aspartate Amino Transf (AST/SGOT) 46H, Alanine Aminotransferase (ALT/SGPT) 42, Alkaline Phosphatase 201H, C-Reactive Protein, Quantitative 26.1H, Pro-B-Type Natriuretic Peptide 51925P, Total Protein 7.8, Albumin 1.9L, Globulin 5.9, Albumin/Globulin Ratio 0.3L, Triglycerides Level 226H, Cholesterol Level 93, LDL Cholesterol 42, HDL Cholesterol 18L, Cholesterol/HDL Ratio 5.2H, Thyroid Stimulating Hormone (TSH) 2.090 Height (Feet): 5 Height (Inches): 9.00 Weight (Pounds): 157 Juan Eckert MD Jan 13, 2019 11:05
[2019-01-13 12:00] VITALS: BP 120/52
--- NOTE | 2019-01-13 12:07 | NUR ---
NURSE NOTES: Patient's blood sugar was within normal limit: 88. No administered scheduled 1200 insulin.
--- NOTE | 2019-01-13 13:08 | Surgery Progress Note ---
Surgery Progress Note Subjective Additional Comments leukocytosis labs noted exam stable comfortable Objective Last 24 Hour Vital Signs Date Time Temp Pulse Resp B/P (MAP) Pulse Ox O2 Delivery O2 Flow Rate FiO2 01/13/19 12:00 80 01/13/19 12:00 97.0 77 18 120/52 (74) 95 77 01/13/19 09:00 Nasal Cannula 4.0 01/13/19 08:25 84 136/66 01/13/19 08:00 97.5 84 19 136/66 (89) 94 84 01/13/19 08:00 82 01/13/19 04:00 97.5 90 19 140/66 (90) 97 90 01/13/19 04:00 90 01/13/19 00:00 79 01/12/19 21:00 Nasal Cannula 4.0 01/12/19 20:28 74 104/53 01/12/19 20:00 97.1 74 20 104/53 (70) 95 74 01/12/19 20:00 75 01/12/19 16:04 97.9 74 18 135/77 (96) 97 74 01/12/19 16:00 68 01/12/19 14:48 78 20 I&O Intake and Output 01/12/19 01/13/19 19:00 07:00 Intake Total 130 ml Output Total 2000 ml Balance 130 ml -2000 ml Intake Free Water 100 ml Tube Feeding 30 ml Output Hemodialysis UF 2000 ml # Bowel Movements 4 Dressing: other Wound: other Drains: other Cardiovascular: RSR Respiratory: decreased breath sounds Abdomen: soft, present bowel sounds Extremities: no cyanosis Laboratory Tests Test 01/13/19 05:56 White Blood Count 13.2 K/UL (4.8-10.8) H Red Blood Count 3.51 M/UL (4.70-6.10) L Hemoglobin 10.4 G/DL (14.2-18.0) #L Hematocrit 30.8 % (42.0-52.0) #L Mean Corpuscular Volume 88 FL (80-99) Mean Corpuscular Hemoglobin 29.6 PG (27.0-31.0) Mean Corpuscular Hemoglobin Concent 33.8 G/DL (32.0-36.0) Red Cell Distribution Width 14.0 % (11.6-14.8) Platelet Count 315 K/UL (150-450) Mean Platelet Volume 4.7 FL (6.5-10.1) L Neutrophils (%) (Auto) 84.6 % (45.0-75.0) H Lymphocytes (%) (Auto) 7.0 % (20.0-45.0) L Monocytes (%) (Auto) 6.4 % (1.0-10.0) Eosinophils (%) (Auto) 1.7 % (0.0-3.0) Basophils (%) (Auto) 0.3 % (0.0-2.0) Sodium Level 138 MMOL/L (136-145) Potassium Level 3.5 MMOL/L (3.5-5.1) Chloride Level 100 MMOL/L (98-107) Carbon Dioxide Level 26 MMOL/L (21-32) Anion Gap 12 mmol/L (5-15) Blood Urea Nitrogen 82 mg/dL (7-18) #H Creatinine 3.7 MG/DL (0.55-1.30) H Estimat Glomerular Filtration Rate mL/min (>60) Glucose Level 186 MG/DL (74-106) H Hemoglobin A1c 7.3 % (4.3-6.0) H Uric Acid 5.5 MG/DL (2.6-7.2) Calcium Level 9.0 MG/DL (8.5-10.1) Phosphorus Level 3.2 MG/DL (2.5-4.9) Magnesium Level 2.1 MG/DL (1.8-2.4) Total Bilirubin 0.5 MG/DL (0.2-1.0) Gamma Glutamyl Transpeptidase 66 U/L (5-85) Aspartate Amino Transf (AST/SGOT) 46 U/L (15-37) H Alanine Aminotransferase (ALT/SGPT) 42 U/L (12-78) Alkaline Phosphatase 201 U/L (46-116) H C-Reactive Protein, Quantitative 26.1 mg/dL (0.00-0.90) H Pro-B-Type Natriuretic Peptide 40122 pg/mL (0-125) H Total Protein 7.8 G/DL (6.4-8.2) Albumin 1.9 G/DL (3.4-5.0) L Globulin 5.9 g/dL Albumin/Globulin Ratio 0.3 (1.0-2.7) L Triglycerides Level 226 MG/DL (30-150) H Cholesterol Level 93 MG/DL (< 200) LDL Cholesterol 42 mg/dL (<100) HDL Cholesterol 18 MG/DL (40-60) L Cholesterol/HDL Ratio 5.2 (3.3-4.4) H Thyroid Stimulating Hormone (TSH) 2.090 uiU/mL (0.358-3.740) Plan Problems: (1) Decubitus skin ulcer Assessment & Plan: Pt presented on admission with multiple pressure injuries. 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 Full thickness sacral pressure that is malodorous (L)7.5cm x (W)5cm x (D)2.9cm, undermining clockwise9-5 by 2.3cm @9o'clock. Base of wound has 60% slough at base. Sacral bone palpable. Edges and periwound are erythematous with scattered slough. Epibole noted along edges.Small amt brownish exudate noted. At left of sacral wound additional opening measuring 8.8cm x (W)2.5cm with 75% slough . Additional openings and erythema also noted to R of sacral wound. Unstageable pressure injury R ischium . Base of has 100% soft necrosis with surrounding erythematous and moist borders. Wound is malodorous(L)1.7cm x (W) 1.7cm. Non-blanching erythema with shearing periwound. Unstageable pressure injury L ischium. Base of wound is 100% necrotic with red and indurated borders. Wound is malodorous. Non-blanching erythema periwound.(L) 4.7cm x (W)2.3cm. Base of scrotum is erythematous. Unstageable pressure injury R heel. Base of wound is 100% soft necrosis with detached borders that erythematous with small amt of slough. Wound is malodorous.(L)1.8cm x (W)2cm. Unstageable pressure injury lateral R foot . Base of wound is 100% stable dry eschar. Edges area adherent and flat. NO odor noted. Periwound without erythema ,induration or fluctuance.(L)1cm x (W)1cm. Blood blisters noted to dorsal R 4thmetatarsal, and R 5th metatarsal dorsal and lateral aspect. In web space of R 4th metatarsal at base,full thickness ulcer noted with small amt sanguineous exudate. Wound is malodorous.(L)0.9cm x (W) 1.2cm. Tx.plan: Cleanse sacral wound with Dakin's ashok 0.125%. Loosely pack wound with Dakin's moistened Kerlix. Apply Moisture Barrier Paste periwound. Cover with Optifoam drsg Twice daily and prn. Cleanse wound R ischium with Dakin's ashok 0.125%. Apply Dakin's moist gauze. Apply Moisture Barrier periwound. Cover with Optifoam drsg Twice Daily and prn. Cleanse wound L Ischium with Dakin's ashok 0.125%. Apply Dakin's moist Gauze. Cover with Optifoam drsg Twice Daily and prn. Apply Betadine to R heel,lateral R foot.Cover with Abd pad and wrap with kerlix Daily and prn. Apply Betadine to wound web space of R 4th metatarsal.Separate toes with Gauze. Wrap with Kerlix Daily and prn. Swab Blisters R 4th and 5th metatarsals with Betadine Daily. Apply Moisture Barrier Paste to scrotum with each incontinence care. APM/HAM Mattress overlay. Reposition at least every 2hours or as tolerated. Place pillow between R knee and L AKA. Off-load R heel with pillow. (2) Leukocytosis Assessment & Plan: worsening leukocytosis wounds re-evaluated unlikely etiology of wbc is wounds they are chronic but will monitor thank you Lalo Rodriguez Jan 13, 2019 13:08
--- NOTE | 2019-01-13 13:28 | Consultation ---
History of Present Illness General Chief Complaint: Abnormal Labs Present Illness Allergies: Coded Allergies: PENICILLINS (Verified Allergy, Unknown, 01/11/19) Medication History Scheduled Acetaminophen* (Acetaminophen Extra Strength*), 1,000 MG GT Q8HR, (Reported) Ascorbic Acid/Ascorbate Sodium (Vitamin C 250 mg Tablet Chew), 500 MG GT BID, ( Reported) Carvedilol (Coreg), 6.25 MG ORAL EVERY 12 HOURS, (Reported) Docusate Sodium* (Docusate Sodium*), 100 MG GT BID, (Reported) Finasteride* (Proscar*), 5 MG GT DAILY, (Reported) Insulin Glargine (Lantus), 16 SUBQ BID, (Reported) Insulin Lispro (Humalog), 0 SUBQ EVERY 6 HOURS, (Reported) Lactulose (Lactulose*), 30 ML GT DAILY, (Reported) Omeprazole (Omeprazole), 40 MG GT BID, (Reported) Simvastatin (Zocor), 20 MG GT BEDTIME, (Reported) Vitamin B Cmplx/Vit C/Folic AC (Nephro-Arminda Tablet), 1 TAB GT DAILY, (Reported) Zinc Sulfate (Zinc Sulfate), 220 MG GT DAILY, (Reported) [Proheal Protein], 30 ML GT BID, (Reported) Scheduled PRN Acetaminophen* (Acetaminophen 325MG Tablet*), 500 MG GT Q6HR PRN for MILD PAIN, (Reported) Acetaminophen* (Acetaminophen 325MG Tablet*), 650 MG GT Q4H PRN for MODERATE PAIN, (Reported) Bisacodyl* (Dulcolax*), 10 MG RECTAL DAILY PRN for Constipation, (Reported) Famotidine* (Pepcid 20mg tablet*), 20 MG GT DAILY PRN for HEARTBURN, (Reported) Guaifenesin/Dextromethorphan (Guaifenesin-Dm 100-10 mg/5 ml), 5 ML GT EVERY 8 HOURS PRN for For Cough, (Reported) Melatonin/Pyridoxine HCl (B6) (Melatonin 3 mg Tablet), 2 EACH GT BEDTIME PRN for TO IMPROVE CIRCADIAN RHYTHM , (Reported) Patient History Healthcare decision maker N Resuscitation status Full Code Advanced Directive on File Physical Exam Last 24 Hour Vital Signs Date Time Temp Pulse Resp B/P (MAP) Pulse Ox O2 Delivery O2 Flow Rate FiO2 01/13/19 12:00 80 01/13/19 12:00 97.0 77 18 120/52 (74) 95 77 01/13/19 09:00 Nasal Cannula 4.0 01/13/19 08:25 84 136/66 01/13/19 08:00 97.5 84 19 136/66 (89) 94 84 01/13/19 08:00 82 01/13/19 04:00 97.5 90 19 140/66 (90) 97 90 01/13/19 04:00 90 01/13/19 00:00 79 01/12/19 21:00 Nasal Cannula 4.0 01/12/19 20:28 74 104/53 01/12/19 20:00 97.1 74 20 104/53 (70) 95 74 01/12/19 20:00 75 01/12/19 16:04 97.9 74 18 135/77 (96) 97 74 01/12/19 16:00 68 01/12/19 14:48 78 20 Intake and Output 01/12/19 01/13/19 19:00 07:00 Intake Total 130 ml Output Total 2000 ml Balance 130 ml -2000 ml Intake Free Water 100 ml Tube Feeding 30 ml Output Hemodialysis UF 2000 ml # Bowel Movements 4 Laboratory Tests Test 01/13/19 05:56 White Blood Count 13.2 K/UL (4.8-10.8) H Red Blood Count 3.51 M/UL (4.70-6.10) L Hemoglobin 10.4 G/DL (14.2-18.0) #L Hematocrit 30.8 % (42.0-52.0) #L Mean Corpuscular Volume 88 FL (80-99) Mean Corpuscular Hemoglobin 29.6 PG (27.0-31.0) Mean Corpuscular Hemoglobin Concent 33.8 G/DL (32.0-36.0) Red Cell Distribution Width 14.0 % (11.6-14.8) Platelet Count 315 K/UL (150-450) Mean Platelet Volume 4.7 FL (6.5-10.1) L Neutrophils (%) (Auto) 84.6 % (45.0-75.0) H Lymphocytes (%) (Auto) 7.0 % (20.0-45.0) L Monocytes (%) (Auto) 6.4 % (1.0-10.0) Eosinophils (%) (Auto) 1.7 % (0.0-3.0) Basophils (%) (Auto) 0.3 % (0.0-2.0) Sodium Level 138 MMOL/L (136-145) Potassium Level 3.5 MMOL/L (3.5-5.1) Chloride Level 100 MMOL/L (98-107) Carbon Dioxide Level 26 MMOL/L (21-32) Anion Gap 12 mmol/L (5-15) Blood Urea Nitrogen 82 mg/dL (7-18) #H Creatinine 3.7 MG/DL (0.55-1.30) H Estimat Glomerular Filtration Rate mL/min (>60) Glucose Level 186 MG/DL (74-106) H Hemoglobin A1c 7.3 % (4.3-6.0) H Uric Acid 5.5 MG/DL (2.6-7.2) Calcium Level 9.0 MG/DL (8.5-10.1) Phosphorus Level 3.2 MG/DL (2.5-4.9) Magnesium Level 2.1 MG/DL (1.8-2.4) Total Bilirubin 0.5 MG/DL (0.2-1.0) Gamma Glutamyl Transpeptidase 66 U/L (5-85) Aspartate Amino Transf (AST/SGOT) 46 U/L (15-37) H Alanine Aminotransferase (ALT/SGPT) 42 U/L (12-78) Alkaline Phosphatase 201 U/L (46-116) H C-Reactive Protein, Quantitative 26.1 mg/dL (0.00-0.90) H Pro-B-Type Natriuretic Peptide 59273 pg/mL (0-125) H Total Protein 7.8 G/DL (6.4-8.2) Albumin 1.9 G/DL (3.4-5.0) L Globulin 5.9 g/dL Albumin/Globulin Ratio 0.3 (1.0-2.7) L Triglycerides Level 226 MG/DL (30-150) H Cholesterol Level 93 MG/DL (< 200) LDL Cholesterol 42 mg/dL (<100) HDL Cholesterol 18 MG/DL (40-60) L Cholesterol/HDL Ratio 5.2 (3.3-4.4) H Thyroid Stimulating Hormone (TSH) 2.090 uiU/mL (0.358-3.740) Height (Feet): 5 Height (Inches): 9.00 Weight (Pounds): 157 Medications Current Medications Medications (Trade) Dose Ordered Sig/Mariangel Route PRN Reason Start Time Stop Time Status Last Admin Dose Admin Atorvastatin Calcium (Lipitor) 20 mg BEDTIME GT 01/11/19 21:03 02/10/19 20:59 01/12/19 20:27 Carvedilol (Coreg) 6.25 mg EVERY 12 HOURS GT 01/11/19 21:03 02/10/19 20:59 01/13/19 08:25 Dextrose (Dextrose 50%) 25 ml Q30M PRN IV Hypoglycemia 01/11/19 20:45 02/10/19 20:44 Dextrose (Dextrose 50%) 50 ml Q30M PRN IV Hypoglycemia 01/11/19 20:45 02/10/19 20:44 01/13/19 00:14 Docusate Sodium (Colace) 100 mg TID GT 01/12/19 13:00 02/10/19 17:59 01/13/19 08:26 Epoetin Bartolome (Epoetin Bartolome(ESRD on dialysis)) 10,000 unit THU-THU-THU SUBQ 01/12/19 21:00 02/11/19 20:59 01/12/19 20:42 Famotidine (Pepcid) 20 mg BID GT 01/12/19 18:00 02/11/19 17:59 01/13/19 08:26 Finasteride (Proscar) 5 mg DAILY ORAL 01/12/19 09:00 02/11/19 08:59 01/13/19 08:26 Insulin Aspart (NovoLOG) EVERY 6 HOURS SUBQ 01/12/19 00:00 02/11/19 00:00 01/12/19 17:56 Insulin Detemir (Levemir) 16 units BID SUBQ 01/12/19 09:00 02/11/19 08:59 01/13/19 08:25 Lactulose (Cephulac) 20 gm DAILY GT 01/12/19 09:00 02/11/19 08:59 01/13/19 08:26 Sodium Hypochlorite (Dakin's Quarter Strength) 1 applic BID TOPIC 01/12/19 18:00 02/11/19 17:59 01/13/19 08:26 Vitamin B Complex/ Vit C/Folic Acid (Nephrovite) 1 tab DAILY GT 01/12/19 09:00 02/11/19 08:59 01/13/19 08:26 Zinc Sulfate (Zinc Sulfate) 220 mg DAILY GT 01/12/19 09:00 02/11/19 08:59 01/13/19 08:23 Assessment/Plan Assessment/Plan: Hematology Consultation REQ MD: Fatou Cummings Chief Complaint: Abnormal Labs RFC: Anemia and leukocytosis eval DOS: 01/13/19 HPI 78-year-old male history of stroke, end-stage renal disease dialysis Thursday presents with elevated BUN and creatinine, patient was sent in for further dialysis, apparently his dialysis catheter was having issues yesterday when he was receiving dialysis. Patient denies any fever chills chest pain shortness of breath patient feels completely fine, his elevated BUN CR was elevated yesterday alleviated by dialysis aggravated by not having dialysis. Severity is mild. patient presents for dialysis. Has since had HD catheter replaced by ir and now getting hd, done yesterday and tomorrow, today seen by renal and surg, recs reviewed. Allergies: PENICILLINS (Verified Allergy, Unknown, 01/11/19) Past Medical History: see triage record Reviewed Nursing Documentation: PMH: Agreed; PSxH: Agreed Nursing Documentation-PMH Past Medical History: No History, Except For Hx Hypertension: Yes - HYPERLIPIDEMIA Hx Diabetes: Yes Hx Dialysis: Yes Review of Systems All Other Systems: negative except mentioned in HPI Physical Exam: Vitals: reviewed General Appearance: NAD HEENT: normocephalic, atraumatic Neck: non-tender, normal alignment Respiratory/Chest: normal breath sounds bilaterally Cardiovascular/Chest: normal peripheral pulses, normal rate Abdomen: normal bowel sounds, soft, nontender Extremities: normal range of motion ++ catheter replaced by ir Labs: noted Imaging: reviewed Assessment and Recs: # Anemia of chronic disease due to underlying chronic medical issues, multifactorial --> Anemia workup has been ordered, rule out gi bleed --> No evidence of hemolysis is noted, peripheral smear has been reviewed. --> Hgb goal >7. Transfuse prn. --> Epogen started given on hd --> does not require iron at this time --> Medications have been reviewed # Leukocytosis/elevated white blood cell count, unspecified likely related to underlying stress reaction, v infection --> have reviewed peripheral smear and bandemia/neutrophilia noted --> meds reviewed --> trend 11-->13 --> monitor for resolution --> VRE++ of rectum # ESRD on hd --> as per renal # Sacral decub wounds --> per surg # BPH # Dvt ppx scds Appreciate consultation and dw RN. Kashmir Gomez MD Jan 13, 2019 13:28
[2019-01-13 16:00] VITALS: BP 135/63
--- NOTE | 2019-01-13 17:30 | NUR ---
HAND-OFF: Report given to Bang Campa RN. Patient's stable, plan of care endorsed. Patient's belonging list signed with receiving nurse at bedside. mash preparatory operator removed. .
[2019-01-13 18:15] VITALS: BP 146/58
--- NOTE | 2019-01-13 18:40 | NUR ---
NURSE NOTES: PT WITH CRITICALLY LOW BLOOD SUGAR AT 1800 HRS. RN ADMINISTERED PRN DEXTROSE 50 ORDERED FOR LOW BLOOD SUGAR. UPON REASSESSMENT AT 1830HRS, BLOOD SUGAR IS 183. STAT BS DRAWN WITH RESULT 143. RN HELD SCHEDULED LEVEMIR AND NOVOLOG FOR 1800 HRS. RN LEFT MESSAGE FOR DR MACIAS PER PROTOCOL. VSS. WOUND DRESSINGS CHANGED AND PICTURES UPLOADED. PT IN NO APPARENT DISTRESS AT THIS TIME. PER REPORT FROM GERALD KLINE, PT'S TUBE FEEDING NEPRO ON HOLD. GTUBE FEEDING LIMITED HOURS 18 HRS: OFF AT 1330 HRS AND BACK ON AT 1930 HRS. PT IN HIGH-PEGUERO'S POSITION WITH HOB ELEVATED. BED IN LOWEST POSITION WITH BEDSIDE RAILS X3 RAISED. PT AXOX2-3. WILL CONTINUE TO MONITOR. RN SPOKE WITH [facility] AND MADE AWARE OF HD ORDER FOR TOMORROW 01/14/2019.
--- NOTE | 2019-01-13 19:18 | NUR ---
HAND-OFF: Report given to Bala STEINBERG RN.
--- NOTE | 2019-01-13 19:30 | NUR ---
NURSE NOTES: Received patient in no apparent distress. NC 2L on. No s/s of respiratory distress noted. A&OX2, forgetful. IV site patent and intact. G-tube in place, infusing Nepro 50cc/hr, 0cc residual noted, flushed, elevated HOB. Perma cath noted on right upper chest. Bed in lowest position. Call light within reach. Will continue to monitor.
[2019-01-13 20:00] VITALS: BP 131/55
[2019-01-13] MEDS: Atorvastatin 20mg tab GT SCH (20:59)
--- NOTE | 2019-01-13 22:11 | General Progress Note ---
Assessment/Plan Problem List: (1) Inadequate dialysis SNOMED: 421965586 (2) Abnormal laboratory test result ICD Codes: R89.9 - Unspecified abnormal finding in specimens from other organs , systems and tissues SNOMED: 065267638 (3) Dialysis patient ICD Codes: Z99.2 - Dependence on renal dialysis SNOMED: 293955392 (4) Signs and symptoms of anemia ICD Codes: D64.9 - Anemia, unspecified SNOMED: 77214753, 423636612 Status: progressing Assessment/Plan: hypoglycemia consulted dr roper elevated /critical bun is improving anemia no bleeding Subjective ROS Limited/Unobtainable: Yes Allergies: Coded Allergies: PENICILLINS (Verified Allergy, Unknown, 01/11/19) Objective Last 24 Hour Vital Signs Date Time Temp Pulse Resp B/P (MAP) Pulse Ox O2 Delivery O2 Flow Rate FiO2 01/13/19 20:59 75 131/55 01/13/19 20:00 97.4 75 17 131/55 (80) 97 01/13/19 18:15 95.9 77 16 146/58 (87) 92 01/13/19 16:00 71 01/13/19 16:00 97.5 75 20 135/63 (87) 98 75 01/13/19 12:00 80 01/13/19 12:00 97.0 77 18 120/52 (74) 95 77 01/13/19 09:00 Nasal Cannula 4.0 01/13/19 08:25 84 136/66 01/13/19 08:00 97.5 84 19 136/66 (89) 94 84 01/13/19 08:00 82 01/13/19 04:00 97.5 90 19 140/66 (90) 97 90 01/13/19 04:00 90 01/13/19 00:00 79 Intake and Output 01/12/19 01/13/19 18:59 06:59 Intake Total 130 ml Output Total 2000 ml Balance 130 ml -2000 ml Intake Free Water 100 ml Tube Feeding 30 ml Output Hemodialysis UF 2000 ml # Bowel Movements 4 Laboratory Tests 01/13/19 05:56: White Blood Count 13.2H, Red Blood Count 3.51L, Hemoglobin 10.4#L, Hematocrit 30.8#L, Mean Corpuscular Volume 88, Mean Corpuscular Hemoglobin 29.6, Mean Corpuscular Hemoglobin Concent 33.8, Red Cell Distribution Width 14.0, Platelet Count 315, Mean Platelet Volume 4.7L, Neutrophils (%) (Auto) 84.6H, Lymphocytes (%) (Auto) 7.0L, Monocytes (%) (Auto) 6.4, Eosinophils (%) (Auto) 1.7, Basophils (%) (Auto) 0.3, Sodium Level 138, Potassium Level 3.5, Chloride Level 100, Carbon Dioxide Level 26, Anion Gap 12, Blood Urea Nitrogen 82#H, Creatinine 3.7H, Estimat Glomerular Filtration Rate , Glucose Level 186H, Hemoglobin A1c 7.3H, Uric Acid 5.5, Calcium Level 9.0, Phosphorus Level 3.2, Magnesium Level 2.1, Total Bilirubin 0.5, Gamma Glutamyl Transpeptidase 66, Aspartate Amino Transf (AST/SGOT) 46H, Alanine Aminotransferase (ALT/SGPT) 42, Alkaline Phosphatase 201H, C-Reactive Protein, Quantitative 26.1H, Pro-B-Type Natriuretic Peptide 05933A, Total Protein 7.8, Albumin 1.9L, Globulin 5.9, Albumin/Globulin Ratio 0.3L, Triglycerides Level 226H, Cholesterol Level 93, LDL Cholesterol 42, HDL Cholesterol 18L, Cholesterol/HDL Ratio 5.2H, Thyroid Stimulating Hormone (TSH) 2.090 01/13/19 18:00: Glucose Level 143H Height (Feet): 5 Height (Inches): 9.00 Weight (Pounds): 157 Neck: supple Cardiovascular: regular rhythm Respiratory/Chest: lungs clear Fatou Santoro MD Jan 13, 2019 22:11
[2019-01-14] VITALS: BP 134/60
[2019-01-14 04:00] VITALS: BP 121/44
[2019-01-14] MEDS: NovoLOG Insulin Flexpen SUBQ SCH ×4 (05:37→17:44)
--- NOTE | 2019-01-14 05:42 | NUR ---
NURSE NOTES: Dressing changed on sacral and ischial area.
--- NOTE | 2019-01-14 06:55 | Hematology/Onc Progress Note ---
Assessment/Plan Assessment/Plan Assessment and Recs: # Anemia of chronic disease due to underlying chronic medical issues, multifactorial --> Anemia workup has been ordered, rule out gi bleed --> No evidence of hemolysis is noted, peripheral smear has been reviewed. --> Hgb goal >7. Transfuse prn. --> Epogen started given on hd --> does not require iron at this time --> Medications have been reviewed --> hgb trend 7.4-->10.4 --> ferritin is 1095 # Leukocytosis/elevated white blood cell count, unspecified likely related to underlying stress reaction, v infection --> have reviewed peripheral smear and bandemia/neutrophilia noted --> meds reviewed --> trend 11-->13 --> monitor for resolution --> VRE++ of rectum # ESRD on hd --> as per renal --> epo # Sacral decub wounds --> per surg # BPH # Dvt ppx scds Appreciate consultation and debi RN. Subjective HEENT: Denies: no symptoms, eye pain, blurred vision, tearing, double vision, ear pain, ear discharge, nose pain, nose congestion, throat pain, throat swelling, mouth pain, mouth swelling, other Respiratory: Denies: no symptoms, cough, shortness of breath, SOB with excertion, SOB at rest, sputum, wheezing, other Gastrointestinal/Abdominal: Denies: no symptoms, abdomen distended, abdominal pain, black stools, tarry stools, blood in stool, constipated, diarrhea, difficulty swallowing, nausea, poor appetite, poor fluid intake, rectal bleeding , vomiting, other Neurologic/Psychiatric: Denies: no symptoms, anxiety, depressed, emotional problems, headache, numbness, paresthesia, pre-existing deficit, seizure, tingling, tremors, weakness, other Endocrine: Denies: no symptoms, excessive sweating, flushing, intolerance to cold, intolerance to heat, increased hunger, increased thirst, increased urine, unexplained weight gain, unexplained weight loss, other Hematologic/Lymphatic: Denies: no symptoms, anemia, easy bleeding, easy bruising, adenopathy, other Allergies: Coded Allergies: PENICILLINS (Verified Allergy, Unknown, 01/11/19) Subjective 01/14: no bleeding, cbc reviewed, no f/c, back on gtube feeds Objective Objective Current Medications Medications (Trade) Dose Ordered Sig/Mariangel Route PRN Reason Start Time Stop Time Status Last Admin Dose Admin Atorvastatin Calcium (Lipitor) 20 mg BEDTIME GT 01/13/19 21:00 02/10/19 20:59 01/13/19 20:59 Carvedilol (Coreg) 6.25 mg EVERY 12 HOURS GT 01/13/19 21:00 02/10/19 20:59 01/13/19 20:59 Dextrose (Dextrose 50%) 25 ml Q30M PRN IV Hypoglycemia 01/13/19 17:15 02/10/19 20:44 Dextrose (Dextrose 50%) 50 ml Q30M PRN IV Hypoglycemia 01/13/19 17:15 02/10/19 20:44 01/13/19 17:54 Docusate Sodium (Colace) 100 mg TID GT 01/13/19 18:00 02/10/19 17:59 01/13/19 18:29 Epoetin Bartolome (Epoetin Bartolome(ESRD on dialysis)) 10,000 unit THU-THU-THU SUBQ 01/14/19 21:00 02/11/19 20:59 Famotidine (Pepcid) 20 mg BID GT 01/13/19 18:00 02/11/19 17:59 01/13/19 18:29 Finasteride (Proscar) 5 mg DAILY ORAL 01/14/19 09:00 02/11/19 08:59 Insulin Aspart (NovoLOG) EVERY 6 HOURS SUBQ 01/13/19 18:30 02/11/19 18:29 01/14/19 05:37 Insulin Detemir (Levemir) 16 units BID SUBQ 01/14/19 09:00 02/13/19 08:59 Lactulose (Cephulac) 20 gm DAILY GT 01/14/19 09:00 02/11/19 08:59 Sodium Hypochlorite (Dakin's Quarter Strength) 1 applic BID TOPIC 01/13/19 18:00 02/11/19 17:59 01/13/19 18:29 Vitamin B Complex/ Vit C/Folic Acid (Nephrovite) 1 tab DAILY GT 01/14/19 09:00 02/11/19 08:59 Zinc Sulfate (Zinc Sulfate) 220 mg DAILY GT 01/14/19 09:00 02/11/19 08:59 Last 24 Hour Vital Signs Date Time Temp Pulse Resp B/P (MAP) Pulse Ox O2 Delivery O2 Flow Rate FiO2 01/14/19 04:00 97.6 75 17 121/44 (69) 96 01/14/19 00:00 97.7 71 18 134/60 (84) 97 01/13/19 21:00 Nasal Cannula 2.0 01/13/19 20:59 75 131/55 01/13/19 20:00 97.4 75 17 131/55 (80) 97 01/13/19 18:15 95.9 77 16 146/58 (87) 92 01/13/19 16:00 71 01/13/19 16:00 97.5 75 20 135/63 (87) 98 75 01/13/19 12:00 80 01/13/19 12:00 97.0 77 18 120/52 (74) 95 77 01/13/19 09:00 Nasal Cannula 4.0 01/13/19 08:25 84 136/66 01/13/19 08:00 97.5 84 19 136/66 (89) 94 84 01/13/19 08:00 82 01/13/19 04:00 97.5 90 19 140/66 (90) 97 90 01/13/19 04:00 90 01/13/19 00:00 79 01/12/19 21:00 Nasal Cannula 4.0 01/12/19 20:28 74 104/53 01/12/19 20:00 97.1 74 20 104/53 (70) 95 74 01/12/19 20:00 75 01/12/19 16:04 97.9 74 18 135/77 (96) 97 74 01/12/19 16:00 68 01/12/19 14:48 78 20 01/12/19 12:00 98.3 75 18 116/59 (78) 97 75 01/12/19 12:00 68 01/12/19 09:30 75 131/51 01/12/19 09:00 Nasal Cannula 4.0 01/12/19 08:00 98.2 75 20 131/51 (77) 97 75 01/12/19 08:00 78 Intake and Output 01/13/19 01/14/19 19:00 07:00 Intake Total 360 ml 850 ml Balance 360 ml 850 ml Intake Free Water 250 ml 300 ml Tube Feeding 110 ml 550 ml # Voids 1 Labs Test 01/11/19 15:20 01/12/19 04:00 01/12/19 12:30 01/13/19 05:56 White Blood Count 11.0 K/UL (4.8-10.8) 11.5 K/UL (4.8-10.8) 13.2 K/UL (4.8-10.8) Red Blood Count 2.58 M/UL (4.70-6.10) 2.52 M/UL (4.70-6.10) 3.51 M/UL (4.70-6.10) Hemoglobin 7.4 G/DL (14.2-18.0) 7.3 G/DL (14.2-18.0) 10.4 G/DL (14.2-18.0) Hematocrit 23.0 % (42.0-52.0) 22.6 % (42.0-52.0) 30.8 % (42.0-52.0) Mean Corpuscular Volume 89 FL (80-99) 90 FL (80-99) 88 FL (80-99) Mean Corpuscular Hemoglobin 28.6 PG (27.0-31.0) 29.1 PG (27.0-31.0) 29.6 PG (27.0-31.0) Mean Corpuscular Hemoglobin Concent 32.1 G/DL (32.0-36.0) 32.4 G/DL (32.0-36.0) 33.8 G/DL (32.0-36.0) Red Cell Distribution Width 15.3 % (11.6-14.8) 14.9 % (11.6-14.8) 14.0 % (11.6-14.8) Platelet Count 292 K/UL (150-450) 293 K/UL (150-450) 315 K/UL (150-450) Mean Platelet Volume 5.0 FL (6.5-10.1) 4.7 FL (6.5-10.1) 4.7 FL (6.5-10.1) Neutrophils (%) (Auto) % (45.0-75.0) % (45.0-75.0) 84.6 % (45.0-75.0) Lymphocytes (%) (Auto) % (20.0-45.0) % (20.0-45.0) 7.0 % (20.0-45.0) Monocytes (%) (Auto) % (1.0-10.0) % (1.0-10.0) 6.4 % (1.0-10.0) Eosinophils (%) (Auto) % (0.0-3.0) % (0.0-3.0) 1.7 % (0.0-3.0) Basophils (%) (Auto) % (0.0-2.0) % (0.0-2.0) 0.3 % (0.0-2.0) Differential Total Cells Counted 100 100 Neutrophils % (Manual) 81 % (45-75) 79 % (45-75) Lymphocytes % (Manual) 6 % (20-45) 9 % (20-45) Monocytes % (Manual) 9 % (1-10) 9 % (1-10) Eosinophils % (Manual) 3 % (0-3) 2 % (0-3) Basophils % (Manual) 1 % (0-2) 1 % (0-2) Band Neutrophils 0 % (0-8) 0 % (0-8) Platelet Estimate Adequate Adequate Platelet Morphology Normal Normal Hypochromasia 1+ 3+ Anisocytosis 1+ 1+ Sodium Level 137 MMOL/L (136-145) 138 MMOL/L (136-145) 138 MMOL/L (136-145) Potassium Level 4.1 MMOL/L (3.5-5.1) 4.4 MMOL/L (3.5-5.1) 3.5 MMOL/L (3.5-5.1) Chloride Level 97 MMOL/L (98-107) 98 MMOL/L (98-107) 100 MMOL/L (98-107) Carbon Dioxide Level 27 MMOL/L (21-32) 25 MMOL/L (21-32) 26 MMOL/L (21-32) Anion Gap 13 mmol/L (5-15) 15 mmol/L (5-15) 12 mmol/L (5-15) Blood Urea Nitrogen 158 mg/dL (7-18) 165 mg/dL (7-18) 82 mg/dL (7-18) Creatinine 5.3 MG/DL (0.55-1.30) 5.5 MG/DL (0.55-1.30) 3.7 MG/DL (0.55-1.30) Estimat Glomerular Filtration Rate mL/min (>60) mL/min (>60) mL/min (>60) Glucose Level 192 MG/DL (74-106) 119 MG/DL (74-106) 186 MG/DL (74-106) Calcium Level 9.1 MG/DL (8.5-10.1) 9.4 MG/DL (8.5-10.1) 9.0 MG/DL (8.5-10.1) Phosphorus Level 3.3 MG/DL (2.5-4.9) 4.3 MG/DL (2.5-4.9) 3.2 MG/DL (2.5-4.9) Magnesium Level 2.4 MG/DL (1.8-2.4) 2.5 MG/DL (1.8-2.4) 2.1 MG/DL (1.8-2.4) Iron Level 28 ug/dL (50-175) Total Iron Binding Capacity 144 ug/dL (250-450) Percent Iron Saturation 19 % (15-50) Unsaturated Iron Binding 116 ug/dL (112-346) Ferritin 1095 NG/ML (8-388) Total Bilirubin 0.3 MG/DL (0.2-1.0) 0.3 MG/DL (0.2-1.0) 0.5 MG/DL (0.2-1.0) Aspartate Amino Transf (AST/SGOT) 32 U/L (15-37) 40 U/L (15-37) 46 U/L (15-37) Alanine Aminotransferase (ALT/SGPT) 30 U/L (12-78) 43 U/L (12-78) 42 U/L (12-78) Alkaline Phosphatase 171 U/L (46-116) 158 U/L (46-116) 201 U/L (46-116) Total Protein 7.4 G/DL (6.4-8.2) 7.3 G/DL (6.4-8.2) 7.8 G/DL (6.4-8.2) Albumin 1.8 G/DL (3.4-5.0) 1.8 G/DL (3.4-5.0) 1.9 G/DL (3.4-5.0) Globulin 5.6 g/dL 5.5 g/dL 5.9 g/dL Albumin/Globulin Ratio 0.3 (1.0-2.7) 0.3 (1.0-2.7) 0.3 (1.0-2.7) Lipase 226 U/L (73-393) Vitamin B12 Level 815 PG/ML (193-986) Folate 85.9 NG/ML (8.6-58.9) Spherocytes 1+ Gamma Glutamyl Transpeptidase 50 U/L (5-85) 66 U/L (5-85) Total Creatine Kinase 31 U/L (26-308) Troponin I 0.016 ng/mL (0.000-0.056) C-Reactive Protein, Quantitative 21.6 mg/dL (0.00-0.90) 26.1 mg/dL (0.00-0.90) Pro-B-Type Natriuretic Peptide 40683 pg/mL (0-125) 51640 pg/mL (0-125) Thyroid Stimulating Hormone (TSH) 2.608 uiU/mL (0.358-3.740) 2.090 uiU/mL (0.358-3.740) Prothrombin Time 11.3 SEC (9.30-11.50) Prothromb Time International Ratio 1.1 (0.9-1.1) Activated Partial Thromboplast Time 25 SEC (23-33) Hemoglobin A1c 7.3 % (4.3-6.0) Uric Acid 5.5 MG/DL (2.6-7.2) Triglycerides Level 226 MG/DL (30-150) Cholesterol Level 93 MG/DL (< 200) LDL Cholesterol 42 mg/dL (<100) HDL Cholesterol 18 MG/DL (40-60) Cholesterol/HDL Ratio 5.2 (3.3-4.4) Test 01/13/19 18:00 Glucose Level 143 MG/DL (74-106) Height (Feet): 5 Height (Inches): 9.00 Weight (Pounds): 172 Objective Physical Exam: Vitals: reviewed General Appearance: NAD HEENT: normocephalic, atraumatic Neck: non-tender, normal alignment Respiratory/Chest: normal breath sounds bilaterally Cardiovascular/Chest: normal peripheral pulses, normal rate Abdomen: normal bowel sounds, soft, nontender Extremities: normal range of motion ++ catheter replaced by Kashmir Akhtar MD Jan 14, 2019 06:55
--- NOTE | 2019-01-14 07:00 | NUR ---
HAND-OFF: Report given to Bang Sage RN.
[2019-01-14 07:50] VITALS: BP 137/58
[2019-01-14] MEDS ORDERED: Levemir Flexpen SUBQ SCH ×2 (09:00→18:00)
[2019-01-14] MEDS: Carvedilol 6.25mg Tab GT SCH ×2 (09:00→20:31)
--- NOTE | 2019-01-14 09:00 | NUR ---
NURSE NOTES: Pt aao x2, sleeping in bed, head elevated, gtube with nepro running at 50cc, no pain indicated at this time.
[2019-01-14] MEDS: Lactulose 20gm/30ml UDC GT SCH (09:16)
[2019-01-14] MEDS: Nephrovite tab (Rena-Vite) GT SCH (09:16)
[2019-01-14] MEDS: Zinc Sulfate 220mg cap GT SCH (09:16)
[2019-01-14] MEDS: Docusate 100mg/10ml Liq GT SCH ×3 (09:16→17:38)
[2019-01-14] MEDS: Dakin's 0.125% Soln (Quarter Strength) 16oz TOPIC SCH ×2 (09:19→17:46)
--- NOTE | 2019-01-14 10:42 | NUR ---
CASE MANAGEMENT: REVIEW 01/13/19 SI: RENAL FAILURE ON HD . ANEMIA 97.5 84 19 136/66 94% ON RA WBC 13.2 RBC 3.51 H/H 10.4/30.8 BUN 82 CREAT 3.7 BG 186 IS: IV DEXTROSE 5OML/HR ZINC SULFATE GT QS PROSCAR PO QD LACTULOSE GT QD NOVOLOG SQ Q6HR LEVEMIR SQ BID \: 4E MED SURG UNIT DCP: RETURN TO FACILITY WHEN MEDICALLY CLEARED PLAN: WOUND CARE BL TX X1 CASE MANAGEMENT: REVIEW 01/14/19 SI: RENAL FAILURE ON HD . ANEMIA 97.3 79 18 137/58 95% ON RA RBC 2.58 H/H 7.4/23.0 BUN 158 CREAT 5.3 BG 192 IS: IV DEXTROSE 5OML/HR ZINC SULFATE GT QS PROSCAR PO QD LACTULOSE GT QD NOVOLOG SQ Q6HR LEVEMIR SQ BID \: 4E MED SURG UNIT DCP: RETURN TO FACILITY WHEN MEDICALLY CLEARED PLAN: HD TODAY Addendum: 01/14/19 at 1053 by JUSTNY BENZ LVN CASE MANAGEMENT: REVIEW 01/14/19 SI: RENAL FAILURE ON HD . ANEMIA 97.3 79 18 137/58 95% ON RA IS: IV DEXTROSE 5OML/HR ZINC SULFATE GT QS PROSCAR PO QD LACTULOSE GT QD NOVOLOG SQ Q6HR LEVEMIR SQ BID \: 4E MED SURG UNIT DCP: RETURN TO FACILITY WHEN MEDICALLY CLEARED PLAN: HD TODAY
--- NOTE | 2019-01-14 11:10 | NUR ---
NURSE NOTES: Dressings changed for sacral wound, left and right ischial wounds. Pt. had diarrhea, was cleaned and changed. Nepro running at 40cc/hour, continuous per MD order.
--- NOTE | 2019-01-14 11:23 | General Progress Note ---
Assessment/Plan Problem List: (1) Hypoglycemia ICD Codes: E16.2 - Hypoglycemia, unspecified SNOMED: 577954626 (2) Diabetes mellitus out of control ICD Codes: E11.65 - Type 2 diabetes mellitus with hyperglycemia SNOMED: 51657241, 030102157 (3) ESRD (end stage renal disease) on dialysis ICD Codes: N18.6 - End stage renal disease; Z99.2 - Dependence on renal dialysis SNOMED: 172143877 Status: progressing Assessment/Plan: change TF to continuous at 40 cc/hour change Levemir to 10 units bid continue NISS Subjective ROS Limited/Unobtainable: Yes Allergies: Coded Allergies: PENICILLINS (Verified Allergy, Unknown, 01/11/19) Subjective events hypoglycemia while off TF TF is being held from 1 to 7 pm rate is 50 cc/hour Item Value Date Time Bedside Blood Glucose 161 mg/dl H 01/14/19 0918 Bedside Blood Glucose 161 mg/dl H 01/14/19 0537 Bedside Blood Glucose 98 mg/dl 01/14/19 0000 Bedside Blood Glucose Critically Low Result 01/13/19 1830 Bedside Blood Glucose 88 mg/dl 01/13/19 1200 Bedside Blood Glucose 167 mg/dl H 01/13/19 0825 Objective Last 24 Hour Vital Signs Date Time Temp Pulse Resp B/P (MAP) Pulse Ox O2 Delivery O2 Flow Rate FiO2 01/14/19 09:00 79 137/58 01/14/19 07:50 97.3 79 18 137/58 (84) 95 01/14/19 04:00 97.6 75 17 121/44 (69) 96 01/14/19 00:00 97.7 71 18 134/60 (84) 97 01/13/19 21:00 Nasal Cannula 2.0 01/13/19 20:59 75 131/55 01/13/19 20:00 97.4 75 17 131/55 (80) 97 01/13/19 18:15 95.9 77 16 146/58 (87) 92 01/13/19 16:00 71 01/13/19 16:00 97.5 75 20 135/63 (87) 98 75 01/13/19 12:00 80 01/13/19 12:00 97.0 77 18 120/52 (74) 95 77 Intake and Output 01/13/19 01/14/19 19:00 07:00 Intake Total 360 ml 900 ml Balance 360 ml 900 ml Intake Free Water 250 ml 300 ml Tube Feeding 110 ml 600 ml # Voids 1 Laboratory Tests 01/13/19 18:00: Glucose Level 143H 01/14/19 05:56: Hepatitis B Surface Antigen [Pending] Height (Feet): 5 Height (Inches): 9.00 Weight (Pounds): 172 General Appearance: no apparent distress Neck: normal alignment Cardiovascular: normal rate Respiratory/Chest: decreased breath sounds Abdomen: normal bowel sounds Objective Current Medications Medications (Trade) Dose Ordered Sig/Mariangel Route PRN Reason Start Time Stop Time Status Last Admin Dose Admin Atorvastatin Calcium (Lipitor) 20 mg BEDTIME GT 01/13/19 21:00 02/10/19 20:59 01/13/19 20:59 Carvedilol (Coreg) 6.25 mg EVERY 12 HOURS GT 01/13/19 21:00 02/10/19 20:59 01/13/19 20:59 Dextrose (Dextrose 50%) 25 ml Q30M PRN IV Hypoglycemia 01/13/19 17:15 02/10/19 20:44 Dextrose (Dextrose 50%) 50 ml Q30M PRN IV Hypoglycemia 01/13/19 17:15 02/10/19 20:44 01/13/19 17:54 Docusate Sodium (Colace) 100 mg TID GT 01/13/19 18:00 02/10/19 17:59 01/14/19 09:16 Epoetin Bartolome (Epoetin Bartolome(ESRD on dialysis)) 10,000 unit THU-THU-THU SUBQ 01/14/19 21:00 02/11/19 20:59 Famotidine (Pepcid) 20 mg BID GT 01/13/19 18:00 02/11/19 17:59 01/14/19 09:15 Finasteride (Proscar) 5 mg DAILY ORAL 01/14/19 09:00 02/11/19 08:59 01/14/19 09:16 Insulin Aspart (NovoLOG) EVERY 6 HOURS SUBQ 01/13/19 18:30 02/11/19 18:29 01/14/19 05:37 Insulin Detemir (Levemir) 16 units BID SUBQ 01/14/19 09:00 02/13/19 08:59 01/14/19 09:18 Lactulose (Cephulac) 20 gm DAILY GT 01/14/19 09:00 02/11/19 08:59 01/14/19 09:16 Sodium Hypochlorite (Dakin's Quarter Strength) 1 applic BID TOPIC 01/13/19 18:00 02/11/19 17:59 01/14/19 09:19 Vitamin B Complex/ Vit C/Folic Acid (Nephrovite) 1 tab DAILY GT 01/14/19 09:00 02/11/19 08:59 01/14/19 09:16 Zinc Sulfate (Zinc Sulfate) 220 mg DAILY GT 01/14/19 09:00 02/11/19 08:59 01/14/19 09:16 Juan Lucero MD Jan 14, 2019 11:23
--- NOTE | 2019-01-14 11:40 | Nephrology Progress Note ---
Assessment/Plan Problem List: (1) ESRD (end stage renal disease) on dialysis (2) Complications, dialysis, catheter, mechanical (3) Anemia in chronic kidney disease (CKD) Assessment Malfunctioning dialysis catheter ESRD , Uremia DM OOC Anemia of CKD BPH Plan ANCA kidney noted Dialysis done 01/12 after cath replaced by IR EPO Per consultants 2D echo dialysis again in am 01/14- in process when patient seen- tolerating well. Echo: Left ventricular ejection fraction estimated to be 65-70 %. No left ventricular hypertrophy. Subjective ROS Limited/Unobtainable: No Constitutional: Reports: malaise Objective Objective Last 24 Hour Vital Signs Date Time Temp Pulse Resp B/P (MAP) Pulse Ox O2 Delivery O2 Flow Rate FiO2 01/14/19 09:00 79 137/58 01/14/19 07:50 97.3 79 18 137/58 (84) 95 01/14/19 04:00 97.6 75 17 121/44 (69) 96 01/14/19 00:00 97.7 71 18 134/60 (84) 97 01/13/19 21:00 Nasal Cannula 2.0 01/13/19 20:59 75 131/55 01/13/19 20:00 97.4 75 17 131/55 (80) 97 01/13/19 18:15 95.9 77 16 146/58 (87) 92 01/13/19 16:00 71 01/13/19 16:00 97.5 75 20 135/63 (87) 98 75 01/13/19 12:00 80 01/13/19 12:00 97.0 77 18 120/52 (74) 95 77 Intake and Output 01/13/19 01/14/19 19:00 07:00 Intake Total 360 ml 900 ml Balance 360 ml 900 ml Intake Free Water 250 ml 300 ml Tube Feeding 110 ml 600 ml # Voids 1 Laboratory Tests 01/13/19 18:00: Glucose Level 143H 01/14/19 05:56: Hepatitis B Surface Antigen [Pending] Height (Feet): 5 Height (Inches): 9.00 Weight (Pounds): 172 General Appearance: no apparent distress Respiratory/Chest: decreased breath sounds Abdomen: soft Objective no change Juan Eckert MD Jan 14, 2019 11:40
[2019-01-14 12:00] VITALS: BP 130/63
--- NOTE | 2019-01-14 15:45 | NUR ---
NURSE NOTES: Pt. had diarrhea, cleaned and changed. Dressings for sacral, right ischium and left ischium changed.
[2019-01-14 16:00] VITALS: BP 138/70
--- NOTE | 2019-01-14 17:00 | Surgery Progress Note ---
Surgery Progress Note Subjective Additional Comments leukocytosis comfortable on air mattress family at bedside. no n/v/f/c Objective Last 24 Hour Vital Signs Date Time Temp Pulse Resp B/P (MAP) Pulse Ox O2 Delivery O2 Flow Rate FiO2 01/14/19 16:00 98.3 91 20 138/70 (92) 96 01/14/19 12:00 97.9 88 19 130/63 (85) 96 01/14/19 09:00 Nasal Cannula 2.0 01/14/19 09:00 79 137/58 01/14/19 07:50 97.3 79 18 137/58 (84) 95 01/14/19 04:00 97.6 75 17 121/44 (69) 96 01/14/19 00:00 97.7 71 18 134/60 (84) 97 01/13/19 21:00 Nasal Cannula 2.0 01/13/19 20:59 75 131/55 01/13/19 20:00 97.4 75 17 131/55 (80) 97 01/13/19 18:15 95.9 77 16 146/58 (87) 92 I&O Intake and Output 01/13/19 01/14/19 19:00 07:00 Intake Total 360 ml 900 ml Balance 360 ml 900 ml Intake Free Water 250 ml 300 ml Tube Feeding 110 ml 600 ml # Voids 1 Dressing: other Wound: other Drains: other Cardiovascular: RSR Respiratory: decreased breath sounds Abdomen: soft, present bowel sounds Extremities: no cyanosis, other Laboratory Tests Test 01/13/19 18:00 01/14/19 05:56 Glucose Level 143 MG/DL (74-106) H Hepatitis B Surface Antigen Pending Plan Problems: (1) Decubitus skin ulcer Assessment & Plan: Pt presented on admission with multiple pressure injuries. 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 Full thickness sacral pressure that is malodorous (L)7.5cm x (W)5cm x (D)2.9cm, undermining clockwise9-5 by 2.3cm @9o'clock. Base of wound has 60% slough at base. Sacral bone palpable. Edges and periwound are erythematous with scattered slough. Epibole noted along edges.Small amt brownish exudate noted. At left of sacral wound additional opening measuring 8.8cm x (W)2.5cm with 75% slough . Additional openings and erythema also noted to R of sacral wound. Unstageable pressure injury R ischium . Base of has 100% soft necrosis with surrounding erythematous and moist borders. Wound is malodorous(L)1.7cm x (W) 1.7cm. Non-blanching erythema with shearing periwound. Unstageable pressure injury L ischium. Base of wound is 100% necrotic with red and indurated borders. Wound is malodorous. Non-blanching erythema periwound.(L) 4.7cm x (W)2.3cm. Base of scrotum is erythematous. Unstageable pressure injury R heel. Base of wound is 100% soft necrosis with detached borders that erythematous with small amt of slough. Wound is malodorous.(L)1.8cm x (W)2cm. Unstageable pressure injury lateral R foot . Base of wound is 100% stable dry eschar. Edges area adherent and flat. NO odor noted. Periwound without erythema ,induration or fluctuance.(L)1cm x (W)1cm. Blood blisters noted to dorsal R 4thmetatarsal, and R 5th metatarsal dorsal and lateral aspect. In web space of R 4th metatarsal at base,full thickness ulcer noted with small amt sanguineous exudate. Wound is malodorous.(L)0.9cm x (W) 1.2cm. Tx.plan: Cleanse sacral wound with Dakin's ashok 0.125%. Loosely pack wound with Dakin's moistened Kerlix. Apply Moisture Barrier Paste periwound. Cover with Optifoam drsg Twice daily and prn. Cleanse wound R ischium with Dakin's ashok 0.125%. Apply Dakin's moist gauze. Apply Moisture Barrier periwound. Cover with Optifoam drsg Twice Daily and prn. Cleanse wound L Ischium with Dakin's ashok 0.125%. Apply Dakin's moist Gauze. Cover with Optifoam drsg Twice Daily and prn. Apply Betadine to R heel,lateral R foot.Cover with Abd pad and wrap with kerlix Daily and prn. Apply Betadine to wound web space of R 4th metatarsal.Separate toes with Gauze. Wrap with Kerlix Daily and prn. Swab Blisters R 4th and 5th metatarsals with Betadine Daily. Apply Moisture Barrier Paste to scrotum with each incontinence care. APM/HAM Mattress overlay. Reposition at least every 2hours or as tolerated. Place pillow between R knee and L AKA. Off-load R heel with pillow. (2) Leukocytosis Assessment & Plan: worsening leukocytosis wounds re-evaluated unlikely etiology of wbc is wounds they are chronic but will monitor thank you Lalo Rodriguez Jan 14, 2019 17:00
--- NOTE | 2019-01-14 18:04 | NUR ---
NURSE NOTES: G-tube dressing changed, signed and dated. Skin is clean and dry.
--- NOTE | 2019-01-14 19:37 | NUR ---
HAND-OFF: Report given to Eloisa REID LVN.
[2019-01-14 20:00] VITALS: BP 138/75
--- NOTE | 2019-01-14 20:00 | NUR ---
NURSE NOTES: RECEIVED PATIENT LYING IN BED, AWAKE, ALERT/ORIENTED TO PERSON/PLACE, DENIES PAIN, NO SIGNS AND SYMPTOMS OF ACUTE CARDIO RESPIRATORY DISTRESS/SHORTNESS OF BREATH, DENIES CHEST PAIN, NO PERIPHERAL EDEMA, LEFT AKA, ELEVATED RIGHT LOWER EXTREMITY ON PILLOW WITH HEEL FLOATING. NO REPORT OF GI DISCOMFORT, G TUBE INTACT TO LEFT UPPER ABDOMEN, DRESSING DRY AND INTACT, NO GASTRIC RESIDUAL ASPIRATED, FLUSHED FOR PATENCY, TOLERATED WELL. ASSISTED WITH REPOSITIONING FOR COMFORT/PRESSURE RELIEF, TOLERATED WELL. SIDE RAILS UP X3/BED IN LOWEST POSITION FOR SAFETY, CALL LIGHT WITHIN REACH, HOURLY ROUNDING FOR SAFETY/NEEDS. CONTINUE WITH CURRENT PLAN OF CARE. NAD.
[2019-01-14] MEDS: Atorvastatin 20mg tab GT SCH (20:31)
[2019-01-14] MEDS ORDERED: Epoetin Alfa-EPBX(ESRD on dialysis)10,000 unit/ml vial SUBQ SCH (21:00)
--- NOTE | 2019-01-14 21:08 | General Progress Note ---
Assessment/Plan Problem List: (1) Inadequate dialysis SNOMED: 596480369 (2) Abnormal laboratory test result ICD Codes: R89.9 - Unspecified abnormal finding in specimens from other organs , systems and tissues SNOMED: 942773105 (3) Dialysis patient ICD Codes: Z99.2 - Dependence on renal dialysis SNOMED: 388762142 (4) Signs and symptoms of anemia ICD Codes: D64.9 - Anemia, unspecified SNOMED: 34080902, 918645959 Status: progressing Assessment/Plan: hypoglycemia consulted dr roper elevated /critical bun is improving anemia improving repair diaylsis access Subjective ROS Limited/Unobtainable: Yes Allergies: Coded Allergies: PENICILLINS (Verified Allergy, Unknown, 01/11/19) Objective Last 24 Hour Vital Signs Date Time Temp Pulse Resp B/P (MAP) Pulse Ox O2 Delivery O2 Flow Rate FiO2 01/14/19 20:31 82 134/76 01/14/19 20:12 Nasal Cannula 2.0 01/14/19 20:00 98.4 87 21 138/75 (96) 98 01/14/19 16:00 98.3 91 20 138/70 (92) 96 01/14/19 12:00 97.9 88 19 130/63 (85) 96 01/14/19 09:00 Nasal Cannula 2.0 01/14/19 09:00 79 137/58 01/14/19 07:50 97.3 79 18 137/58 (84) 95 01/14/19 04:00 97.6 75 17 121/44 (69) 96 01/14/19 00:00 97.7 71 18 134/60 (84) 97 Intake and Output 01/13/19 01/14/19 19:00 07:00 Intake Total 360 ml 900 ml Balance 360 ml 900 ml Intake Free Water 250 ml 300 ml Tube Feeding 110 ml 600 ml # Voids 1 Laboratory Tests 01/14/19 05:56: Hepatitis B Surface Antigen [Pending] Height (Feet): 5 Height (Inches): 9.00 Weight (Pounds): 172 Neck: supple Cardiovascular: normal rate Respiratory/Chest: lungs clear Abdomen: soft Fatou Santoro MD Jan 14, 2019 21:08
--- NOTE | 2019-01-14 23:48 | NUR ---
NURSE NOTES: RESTING WELL ON ROUNDS, NAD.
[2019-01-15] VITALS: BP 142/78
[2019-01-15] MEDS: NovoLOG Insulin Flexpen SUBQ SCH ×4 (00:45→17:19)
[2019-01-15 04:00] VITALS: BP 134/80
--- NOTE | 2019-01-15 06:12 | NUR ---
NURSE NOTES: BLOOD GLUCOSE MONITORED VIA GLUCOMETER WITH RESULT 81MG/DL, ASSESSED FOR SIGNS AND SYMPTOMS OF HYPOGLYCEMIA, NONE NOTED. NO SS COVERAGE. NAD.
--- NOTE | 2019-01-15 06:57 | Hematology/Onc Progress Note ---
Assessment/Plan Assessment/Plan Assessment and Recs: # Anemia of chronic disease due to underlying chronic medical issues, multifactorial --> Anemia workup has been ordered, rule out gi bleed --> No evidence of hemolysis is noted, peripheral smear has been reviewed. --> Hgb goal >7. Transfuse prn. --> Epogen started given on hd --> does not require iron at this time --> Medications have been reviewed --> hgb trend 7.4-->10.4 --> ferritin is 1095 # Leukocytosis/elevated white blood cell count, unspecified likely related to underlying stress reaction, v infection --> have reviewed peripheral smear and bandemia/neutrophilia noted --> meds reviewed --> trend 11-->13 --> monitor for resolution --> VRE++ of rectum # ESRD on hd --> as per renal --> epo # Sacral decub wounds --> per surg --> wound care # BPH # Dvt ppx scds Appreciate consultation and debi RN. Subjective HEENT: Denies: no symptoms, eye pain, blurred vision, tearing, double vision, ear pain, ear discharge, nose pain, nose congestion, throat pain, throat swelling, mouth pain, mouth swelling, other Cardiovascular: Denies: no symptoms, chest pain, edema, irregular heart rate, lightheadedness, palpitations, syncope, other Respiratory: Denies: no symptoms, cough, shortness of breath, SOB with excertion, SOB at rest, sputum, wheezing, other Gastrointestinal/Abdominal: Denies: no symptoms, abdomen distended, abdominal pain, black stools, tarry stools, blood in stool, constipated, diarrhea, difficulty swallowing, nausea, poor appetite, poor fluid intake, rectal bleeding , vomiting, other Genitourinary: Denies: no symptoms, burning, discharge, frequency, flank pain, hematuria, incontinence, pain, urgency, other Neurologic/Psychiatric: Denies: no symptoms, anxiety, depressed, emotional problems, headache, numbness, paresthesia, pre-existing deficit, seizure, tingling, tremors, weakness, other Endocrine: Denies: no symptoms, excessive sweating, flushing, intolerance to cold, intolerance to heat, increased hunger, increased thirst, increased urine, unexplained weight gain, unexplained weight loss, other Allergies: Coded Allergies: PENICILLINS (Verified Allergy, Unknown, 01/11/19) Subjective 01/14: no bleeding, cbc reviewed, no f/c, back on gtube feeds 01/15: no events, wbc is lower, no bleeding, wound care Objective Objective Current Medications Medications (Trade) Dose Ordered Sig/Mariangel Route PRN Reason Start Time Stop Time Status Last Admin Dose Admin Atorvastatin Calcium (Lipitor) 20 mg BEDTIME GT 01/13/19 21:00 02/10/19 20:59 01/14/19 20:31 Carvedilol (Coreg) 6.25 mg EVERY 12 HOURS GT 01/13/19 21:00 02/10/19 20:59 01/14/19 20:31 Dextrose (Dextrose 50%) 25 ml Q30M PRN IV Hypoglycemia 01/13/19 17:15 02/10/19 20:44 Dextrose (Dextrose 50%) 50 ml Q30M PRN IV Hypoglycemia 01/13/19 17:15 02/10/19 20:44 01/13/19 17:54 Docusate Sodium (Colace) 100 mg TID GT 01/13/19 18:00 02/10/19 17:59 01/14/19 09:16 Epoetin Bartolome (Epoetin Bartolome(ESRD on dialysis)) 10,000 unit THU-THU-THU SUBQ 01/14/19 21:00 02/11/19 20:59 01/14/19 20:31 Famotidine (Pepcid) 20 mg BID GT 01/13/19 18:00 02/11/19 17:59 01/14/19 17:39 Finasteride (Proscar) 5 mg DAILY ORAL 01/14/19 09:00 02/11/19 08:59 01/14/19 09:16 Insulin Aspart (NovoLOG) EVERY 6 HOURS SUBQ 01/13/19 18:30 02/11/19 18:29 01/14/19 17:44 Insulin Detemir (Levemir) 10 units BID SUBQ 01/14/19 18:00 02/13/19 08:59 01/14/19 17:46 Lactulose (Cephulac) 20 gm DAILY GT 01/14/19 09:00 02/11/19 08:59 01/14/19 09:16 Sodium Hypochlorite (Dakin's Quarter Strength) 1 applic BID TOPIC 01/13/19 18:00 02/11/19 17:59 01/14/19 17:46 Vitamin B Complex/ Vit C/Folic Acid (Nephrovite) 1 tab DAILY GT 01/14/19 09:00 02/11/19 08:59 01/14/19 09:16 Zinc Sulfate (Zinc Sulfate) 220 mg DAILY GT 01/14/19 09:00 02/11/19 08:59 01/14/19 09:16 Last 24 Hour Vital Signs Date Time Temp Pulse Resp B/P (MAP) Pulse Ox O2 Delivery O2 Flow Rate FiO2 01/15/19 04:00 98.2 85 19 134/80 (98) 01/15/19 00:00 97.3 92 21 142/78 (99) 96 01/14/19 20:31 82 134/76 01/14/19 20:12 Nasal Cannula 2.0 01/14/19 20:00 98.4 87 21 138/75 (96) 98 01/14/19 16:00 98.3 91 20 138/70 (92) 96 01/14/19 12:00 97.9 88 19 130/63 (85) 96 01/14/19 09:00 Nasal Cannula 2.0 01/14/19 09:00 79 137/58 01/14/19 07:50 97.3 79 18 137/58 (84) 95 01/14/19 04:00 97.6 75 17 121/44 (69) 96 01/14/19 00:00 97.7 71 18 134/60 (84) 97 01/13/19 21:00 Nasal Cannula 2.0 01/13/19 20:59 75 131/55 01/13/19 20:00 97.4 75 17 131/55 (80) 97 01/13/19 18:15 95.9 77 16 146/58 (87) 92 01/13/19 16:00 71 01/13/19 16:00 97.5 75 20 135/63 (87) 98 75 01/13/19 12:00 80 01/13/19 12:00 97.0 77 18 120/52 (74) 95 77 01/13/19 09:00 Nasal Cannula 4.0 01/13/19 08:25 84 136/66 01/13/19 08:00 97.5 84 19 136/66 (89) 94 84 01/13/19 08:00 82 Intake and Output 01/14/19 01/15/19 19:00 07:00 Intake Total 960 ml 990 ml Output Total 1800 ml 1800 ml Balance -840 ml -810 ml Intake Free Water 450 ml 510 ml Tube Feeding 510 ml 480 ml Output Hemodialysis UF 1800 ml 1800 ml # Voids 2 # Bowel Movements 1 2 Labs Test 01/12/19 12:30 01/13/19 05:56 01/13/19 18:00 01/14/19 05:56 Prothrombin Time 11.3 SEC (9.30-11.50) Prothromb Time International Ratio 1.1 (0.9-1.1) Activated Partial Thromboplast Time 25 SEC (23-33) White Blood Count 13.2 K/UL (4.8-10.8) Red Blood Count 3.51 M/UL (4.70-6.10) Hemoglobin 10.4 G/DL (14.2-18.0) Hematocrit 30.8 % (42.0-52.0) Mean Corpuscular Volume 88 FL (80-99) Mean Corpuscular Hemoglobin 29.6 PG (27.0-31.0) Mean Corpuscular Hemoglobin Concent 33.8 G/DL (32.0-36.0) Red Cell Distribution Width 14.0 % (11.6-14.8) Platelet Count 315 K/UL (150-450) Mean Platelet Volume 4.7 FL (6.5-10.1) Neutrophils (%) (Auto) 84.6 % (45.0-75.0) Lymphocytes (%) (Auto) 7.0 % (20.0-45.0) Monocytes (%) (Auto) 6.4 % (1.0-10.0) Eosinophils (%) (Auto) 1.7 % (0.0-3.0) Basophils (%) (Auto) 0.3 % (0.0-2.0) Sodium Level 138 MMOL/L (136-145) Potassium Level 3.5 MMOL/L (3.5-5.1) Chloride Level 100 MMOL/L (98-107) Carbon Dioxide Level 26 MMOL/L (21-32) Anion Gap 12 mmol/L (5-15) Blood Urea Nitrogen 82 mg/dL (7-18) Creatinine 3.7 MG/DL (0.55-1.30) Estimat Glomerular Filtration Rate mL/min (>60) Glucose Level 186 MG/DL (74-106) 143 MG/DL (74-106) Hemoglobin A1c 7.3 % (4.3-6.0) Uric Acid 5.5 MG/DL (2.6-7.2) Calcium Level 9.0 MG/DL (8.5-10.1) Phosphorus Level 3.2 MG/DL (2.5-4.9) Magnesium Level 2.1 MG/DL (1.8-2.4) Total Bilirubin 0.5 MG/DL (0.2-1.0) Gamma Glutamyl Transpeptidase 66 U/L (5-85) Aspartate Amino Transf (AST/SGOT) 46 U/L (15-37) Alanine Aminotransferase (ALT/SGPT) 42 U/L (12-78) Alkaline Phosphatase 201 U/L (46-116) C-Reactive Protein, Quantitative 26.1 mg/dL (0.00-0.90) Pro-B-Type Natriuretic Peptide 16419 pg/mL (0-125) Total Protein 7.8 G/DL (6.4-8.2) Albumin 1.9 G/DL (3.4-5.0) Globulin 5.9 g/dL Albumin/Globulin Ratio 0.3 (1.0-2.7) Triglycerides Level 226 MG/DL (30-150) Cholesterol Level 93 MG/DL (< 200) LDL Cholesterol 42 mg/dL (<100) HDL Cholesterol 18 MG/DL (40-60) Cholesterol/HDL Ratio 5.2 (3.3-4.4) Thyroid Stimulating Hormone (TSH) 2.090 uiU/mL (0.358-3.740) Test 01/15/19 05:50 Height (Feet): 5 Height (Inches): 9.00 Weight (Pounds): 172 Objective Physical Exam: Vitals: reviewed General Appearance: NAD HEENT: normocephalic, atraumatic Neck: non-tender, normal alignment Respiratory/Chest: normal breath sounds bilaterally Cardiovascular/Chest: normal peripheral pulses, normal rate Abdomen: normal bowel sounds, soft, nontender Extremities: normal range of motion ++ catheter replaced by Kashmir Akhtar MD Jan 15, 2019 06:57
[2019-01-15 07:04] LABS: BASOPHILS % (AUTO) 0.7 % (0.0-2.0); EOSINOPHILS % (AUTO) 2.1 % (0.0-3.0); HEMATOCRIT 32.5 % (42.0-52.0); HEMOGLOBIN 10.8 G/DL (14.2-18.0); LYMPHOCYTES % (AUTO) 6.9 % (20.0-45.0); MEAN CORPUSCULAR VOLUME 89 FL (80-99); MONOCYTES % (AUTO) 7.9 % (1.0-10.0); NEUTROPHILS % (AUTO) 82.5 % (45.0-75.0); PLATELET COUNT 304 K/UL (150-450); RED BLOOD COUNT 3.65 M/UL (4.70-6.10); RED CELL DISTRIBUTION WIDTH 14.2 % (11.6-14.8); WHITE BLOOD COUNT 15.6 K/UL (4.8-10.8)
--- NOTE | 2019-01-15 07:17 | General Progress Note ---
Assessment/Plan Problem List: (1) Hypoglycemia ICD Codes: E16.2 - Hypoglycemia, unspecified SNOMED: 613696143 (2) Diabetes mellitus out of control ICD Codes: E11.65 - Type 2 diabetes mellitus with hyperglycemia SNOMED: 28031480, 128900428 (3) ESRD (end stage renal disease) on dialysis ICD Codes: N18.6 - End stage renal disease; Z99.2 - Dependence on renal dialysis SNOMED: 154404032 Status: progressing Assessment/Plan: reduce Levemir to 10 units qhs continue NISS Subjective ROS Limited/Unobtainable: Yes Allergies: Coded Allergies: PENICILLINS (Verified Allergy, Unknown, 01/11/19) Subjective events glucose values on lower side Item Value Date Time Bedside Blood Glucose 81 mg/dl 01/15/19 0600 Bedside Blood Glucose 101 mg/dl 01/15/19 0045 Bedside Blood Glucose 121 mg/dl H 01/14/19 1746 Bedside Blood Glucose 156 mg/dl H 01/14/19 1255 Bedside Blood Glucose 161 mg/dl H 01/14/19 0918 Bedside Blood Glucose 161 mg/dl H 01/14/19 0537 Bedside Blood Glucose 98 mg/dl 01/14/19 0000 Objective Last 24 Hour Vital Signs Date Time Temp Pulse Resp B/P (MAP) Pulse Ox O2 Delivery O2 Flow Rate FiO2 01/15/19 04:00 98.2 85 19 134/80 (98) 01/15/19 00:00 97.3 92 21 142/78 (99) 96 01/14/19 20:31 82 134/76 01/14/19 20:12 Nasal Cannula 2.0 01/14/19 20:00 98.4 87 21 138/75 (96) 98 01/14/19 16:00 98.3 91 20 138/70 (92) 96 01/14/19 12:00 97.9 88 19 130/63 (85) 96 01/14/19 09:00 Nasal Cannula 2.0 01/14/19 09:00 79 137/58 01/14/19 07:50 97.3 79 18 137/58 (84) 95 Intake and Output 01/14/19 01/15/19 19:00 07:00 Intake Total 960 ml 990 ml Output Total 1800 ml 1800 ml Balance -840 ml -810 ml Intake Free Water 450 ml 510 ml Tube Feeding 510 ml 480 ml Output Hemodialysis UF 1800 ml 1800 ml # Voids 2 # Bowel Movements 1 2 Laboratory Tests 01/15/19 05:50: White Blood Count [Pending], Red Blood Count [Pending], Hemoglobin [Pending], Hematocrit [Pending], Mean Corpuscular Volume [Pending], Mean Corpuscular Hemoglobin [Pending], Mean Corpuscular Hemoglobin Concent [Pending], Red Cell Distribution Width [Pending], Platelet Count [Pending], Mean Platelet Volume [ Pending], Neutrophils (%) (Auto) [Pending], Lymphocytes (%) (Auto) [Pending], Monocytes (%) (Auto) [Pending], Eosinophils (%) (Auto) [Pending], Basophils (%) (Auto) [Pending], Sodium Level [Pending], Potassium Level [Pending], Chloride Level [Pending], Carbon Dioxide Level [Pending], Blood Urea Nitrogen [Pending], Creatinine [Pending], Estimat Glomerular Filtration Rate [Pending], Glucose Level [Pending], Calcium Level [Pending], Phosphorus Level [Pending], Magnesium Level [Pending], Total Bilirubin [Pending], Aspartate Amino Transf (AST/SGOT) [ Pending], Alanine Aminotransferase (ALT/SGPT) [Pending], Alkaline Phosphatase [ Pending], C-Reactive Protein, Quantitative [Pending], Total Protein [Pending], Albumin [Pending], Globulin [Pending] Height (Feet): 5 Height (Inches): 9.00 Weight (Pounds): 172 General Appearance: no apparent distress Neck: normal alignment Cardiovascular: normal rate Respiratory/Chest: decreased breath sounds Abdomen: normal bowel sounds Objective Current Medications Medications (Trade) Dose Ordered Sig/Mariangel Route PRN Reason Start Time Stop Time Status Last Admin Dose Admin Atorvastatin Calcium (Lipitor) 20 mg BEDTIME GT 01/13/19 21:00 02/10/19 20:59 01/14/19 20:31 Carvedilol (Coreg) 6.25 mg EVERY 12 HOURS GT 01/13/19 21:00 02/10/19 20:59 01/14/19 20:31 Dextrose (Dextrose 50%) 25 ml Q30M PRN IV Hypoglycemia 01/13/19 17:15 02/10/19 20:44 Dextrose (Dextrose 50%) 50 ml Q30M PRN IV Hypoglycemia 01/13/19 17:15 02/10/19 20:44 01/13/19 17:54 Docusate Sodium (Colace) 100 mg TID GT 01/13/19 18:00 02/10/19 17:59 01/14/19 09:16 Epoetin Bartolome (Epoetin Bartolome(ESRD on dialysis)) 10,000 unit THU- SUBQ 01/14/19 21:00 02/11/19 20:59 01/14/19 20:31 Famotidine (Pepcid) 20 mg BID GT 01/13/19 18:00 02/11/19 17:59 01/14/19 17:39 Finasteride (Proscar) 5 mg DAILY ORAL 01/14/19 09:00 02/11/19 08:59 01/14/19 09:16 Insulin Aspart (NovoLOG) EVERY 6 HOURS SUBQ 01/13/19 18:30 02/11/19 18:29 01/14/19 17:44 Insulin Detemir (Levemir) 10 units BID SUBQ 01/14/19 18:00 02/13/19 08:59 01/14/19 17:46 Lactulose (Cephulac) 20 gm DAILY GT 01/14/19 09:00 02/11/19 08:59 01/14/19 09:16 Sodium Hypochlorite (Dakin's Quarter Strength) 1 applic BID TOPIC 01/13/19 18:00 02/11/19 17:59 01/14/19 17:46 Vitamin B Complex/ Vit C/Folic Acid (Nephrovite) 1 tab DAILY GT 01/14/19 09:00 02/11/19 08:59 01/14/19 09:16 Zinc Sulfate (Zinc Sulfate) 220 mg DAILY GT 01/14/19 09:00 02/11/19 08:59 01/14/19 09:16 Juan Lucero MD Jan 15, 2019 07:17
[2019-01-15 07:21] LABS: ALANINE AMINOTRANSFERASE 41 U/L (12-78); ALBUMIN 1.9 G/DL (3.4-5.0); ALBUMIN/GLOBULIN RATIO 0.3 (1.0-2.7); ALKALINE PHOSPHATASE 182 U/L (46-116); ANION GAP 10 mmol/L (5-15); ASPARTATE AMINO TRANSFERASE 28 U/L (15-37); BILIRUBIN,TOTAL 0.4 MG/DL (0.2-1.0); BLOOD UREA NITROGEN 75 mg/dL (7-18); CALCIUM 9.2 MG/DL (8.5-10.1); CARBON DIOXIDE 29 MMOL/L (21-32); CHLORIDE 100 MMOL/L (98-107); CREATININE 3.8 MG/DL (0.55-1.30); PHOSPHORUS 4.6 MG/DL (2.5-4.9); POTASSIUM 4.1 MMOL/L (3.5-5.1); SODIUM 139 MMOL/L (136-145)
--- NOTE | 2019-01-15 07:59 | NUR ---
HAND-OFF: Report given to Jovana SAXENA RN.
[2019-01-15 08:00] VITALS: BP 100/63
--- NOTE | 2019-01-15 08:14 | NUR ---
pt resting in bed, awake, A/Ox 2-3, forgetful, denies pain, no SOB noted. GT feeding cont, tolerating well, HOB >30 degrees, no residual, Dressings on sacral, vandana LE, CDI, will change per order. fall and asp precaution maintained. will continue to monitor. Addendum: 01/15/19 at 0824 by Hannah Doherty RN Left JT.
--- NOTE | 2019-01-15 08:53 | NUR ---
RD ASSESSMENT & RECOMMENDATIONS SEE CARE ACTIVITY FOR COMPLETE ASSESSMENT DAILY ESTIMATED NEEDS: Needs based on ESRD+ HD, advanced wounds/ 66kg 30-35 kcals/kg 9344-5587 total kcals 1.5-2.0 g protein/kg 99-132 g total protein 20-22 mL/kg 2875-0956 total fluid mLs NUTRITION DIAGNOSIS: * Swallowing difficulty R/T dysphagia as evidenced by pt is PEG dep. * Increased kcal/prot needs R/T wound healing and HD dep as evidenced by admitted w/ multiple wounds including full thickness wound @ sacrum and in web space of R 4th metatarsal at base, unstageable pressure injury at RL ischium, R heel, and R foot, and blood blisters at dorsal R 4thmetatarsal, and R 5th metatarsal dorsal and lateral aspect, h/o ESRD dx, on HD. CURRENT TF:Nepro @ 40ml/hr x 24 hrs ENTERAL NUTRITION RECOMMENDATIONS: Nepro @ 50ml/hr x 24 hrs + Prosource 1pkt QD to provide 1200ml, 2160kcal, 97g + 11g prot, 872ml free water -> Increase goal rate to 50ml/hr x 24 hrs -> add Prosource 1pkt daily to better meet protein needs -> HOB over 30 degrees/ water flush per MD ADDITIONAL RECOMMENDATIONS: * Calibrated bedscale wt post HD * Wound healing: Continue Nephrovite x 1 : add Jeremy 1pkt BID * Monitor renal labs + lytes * Monitor BGs closely for hypoglycemia
[2019-01-15] MEDS: Docusate 100mg/10ml Liq GT SCH ×3 (09:12→17:13)
[2019-01-15] MEDS: Carvedilol 6.25mg Tab GT SCH ×2 (09:12→20:31)
[2019-01-15] MEDS: Lactulose 20gm/30ml UDC GT SCH (09:12)
[2019-01-15] MEDS: Nephrovite tab (Rena-Vite) GT SCH (09:13)
[2019-01-15] MEDS: Zinc Sulfate 220mg cap GT SCH (09:13)
[2019-01-15] MEDS: Dakin's 0.125% Soln (Quarter Strength) 16oz TOPIC SCH ×3 (09:18→20:31)
[2019-01-15 12:00] VITALS: BP 115/53
--- NOTE | 2019-01-15 12:14 | NUR ---
NURSE NOTES: notified Dr Chisholm regarding pts WBC 15.6, no new order received.
[2019-01-15] MEDS ORDERED: Tubing Blood Filter IV ONE (13:06)
[2019-01-15] MEDS: Levofloxacin 500mg tab ORAL SCH (14:00)
--- NOTE | 2019-01-15 14:40 | Surgery Progress Note ---
Surgery Progress Note Subjective Additional Comments comfortable stable labs noted exam unchanged tolerating feeds on air mattress Objective Last 24 Hour Vital Signs Date Time Temp Pulse Resp B/P (MAP) Pulse Ox O2 Delivery O2 Flow Rate FiO2 01/15/19 12:00 98.6 81 19 115/53 (73) 94 01/15/19 09:12 81 100/63 01/15/19 09:00 Room Air 01/15/19 08:00 98.2 81 19 100/63 (75) 94 01/15/19 04:00 98.2 85 19 134/80 (98) 01/15/19 00:00 97.3 92 21 142/78 (99) 96 01/14/19 20:31 82 134/76 01/14/19 20:12 Nasal Cannula 2.0 01/14/19 20:00 98.4 87 21 138/75 (96) 98 01/14/19 16:00 98.3 91 20 138/70 (92) 96 I&O Intake and Output 01/14/19 01/15/19 19:00 07:00 Intake Total 960 ml 990 ml Output Total 1800 ml 1800 ml Balance -840 ml -810 ml Intake Free Water 450 ml 510 ml Tube Feeding 510 ml 480 ml Output Hemodialysis UF 1800 ml 1800 ml # Voids 2 # Bowel Movements 1 2 Dressing: other Wound: other Drains: other Cardiovascular: RSR Respiratory: decreased breath sounds Abdomen: soft, present bowel sounds Extremities: no cyanosis, other Laboratory Tests Test 01/15/19 05:50 White Blood Count 15.6 K/UL (4.8-10.8) H Red Blood Count 3.65 M/UL (4.70-6.10) L Hemoglobin 10.8 G/DL (14.2-18.0) L Hematocrit 32.5 % (42.0-52.0) L Mean Corpuscular Volume 89 FL (80-99) Mean Corpuscular Hemoglobin 29.6 PG (27.0-31.0) Mean Corpuscular Hemoglobin Concent 33.3 G/DL (32.0-36.0) Red Cell Distribution Width 14.2 % (11.6-14.8) Platelet Count 304 K/UL (150-450) Mean Platelet Volume 4.6 FL (6.5-10.1) L Neutrophils (%) (Auto) 82.5 % (45.0-75.0) H Lymphocytes (%) (Auto) 6.9 % (20.0-45.0) L Monocytes (%) (Auto) 7.9 % (1.0-10.0) Eosinophils (%) (Auto) 2.1 % (0.0-3.0) Basophils (%) (Auto) 0.7 % (0.0-2.0) Sodium Level 139 MMOL/L (136-145) Potassium Level 4.1 MMOL/L (3.5-5.1) Chloride Level 100 MMOL/L (98-107) Carbon Dioxide Level 29 MMOL/L (21-32) Anion Gap 10 mmol/L (5-15) Blood Urea Nitrogen 75 mg/dL (7-18) H Creatinine 3.8 MG/DL (0.55-1.30) H Estimat Glomerular Filtration Rate mL/min (>60) Glucose Level 78 MG/DL (74-106) Calcium Level 9.2 MG/DL (8.5-10.1) Phosphorus Level 4.6 MG/DL (2.5-4.9) Magnesium Level 2.1 MG/DL (1.8-2.4) Total Bilirubin 0.4 MG/DL (0.2-1.0) Aspartate Amino Transf (AST/SGOT) 28 U/L (15-37) Alanine Aminotransferase (ALT/SGPT) 41 U/L (12-78) Alkaline Phosphatase 182 U/L (46-116) H C-Reactive Protein, Quantitative 18.3 mg/dL (0.00-0.90) H Total Protein 7.6 G/DL (6.4-8.2) Albumin 1.9 G/DL (3.4-5.0) L Globulin 5.7 g/dL Albumin/Globulin Ratio 0.3 (1.0-2.7) L Plan Problems: (1) Decubitus skin ulcer Assessment & Plan: Pt presented on admission with multiple pressure injuries. 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 Full thickness sacral pressure that is malodorous (L)7.5cm x (W)5cm x (D)2.9cm, undermining clockwise9-5 by 2.3cm @9o'clock. Base of wound has 60% slough at base. Sacral bone palpable. Edges and periwound are erythematous with scattered slough. Epibole noted along edges.Small amt brownish exudate noted. At left of sacral wound additional opening measuring 8.8cm x (W)2.5cm with 75% slough . Additional openings and erythema also noted to R of sacral wound. Unstageable pressure injury R ischium . Base of has 100% soft necrosis with surrounding erythematous and moist borders. Wound is malodorous(L)1.7cm x (W) 1.7cm. Non-blanching erythema with shearing periwound. Unstageable pressure injury L ischium. Base of wound is 100% necrotic with red and indurated borders. Wound is malodorous. Non-blanching erythema periwound.(L) 4.7cm x (W)2.3cm. Base of scrotum is erythematous. Unstageable pressure injury R heel. Base of wound is 100% soft necrosis with detached borders that erythematous with small amt of slough. Wound is malodorous.(L)1.8cm x (W)2cm. Unstageable pressure injury lateral R foot . Base of wound is 100% stable dry eschar. Edges area adherent and flat. NO odor noted. Periwound without erythema ,induration or fluctuance.(L)1cm x (W)1cm. Blood blisters noted to dorsal R 4thmetatarsal, and R 5th metatarsal dorsal and lateral aspect. In web space of R 4th metatarsal at base,full thickness ulcer noted with small amt sanguineous exudate. Wound is malodorous.(L)0.9cm x (W) 1.2cm. Tx.plan: Cleanse sacral wound with Dakin's ashok 0.125%. Loosely pack wound with Dakin's moistened Kerlix. Apply Moisture Barrier Paste periwound. Cover with Optifoam drsg Twice daily and prn. Cleanse wound R ischium with Dakin's ashok 0.125%. Apply Dakin's moist gauze. Apply Moisture Barrier periwound. Cover with Optifoam drsg Twice Daily and prn. Cleanse wound L Ischium with Dakin's ashok 0.125%. Apply Dakin's moist Gauze. Cover with Optifoam drsg Twice Daily and prn. Apply Betadine to R heel,lateral R foot.Cover with Abd pad and wrap with kerlix Daily and prn. Apply Betadine to wound web space of R 4th metatarsal.Separate toes with Gauze. Wrap with Kerlix Daily and prn. Swab Blisters R 4th and 5th metatarsals with Betadine Daily. Apply Moisture Barrier Paste to scrotum with each incontinence care. APM/HAM Mattress overlay. Reposition at least every 2hours or as tolerated. Place pillow between R knee and L AKA. Off-load R heel with pillow. (2) Leukocytosis Assessment & Plan: worsening leukocytosis wounds re-evaluated unlikely etiology of wbc is wounds they are chronic but will monitor DAILY ESTIMATED NEEDS: Needs based on ESRD+ HD, advanced wounds/ 66kg 30-35 kcals/kg 3563-3699 total kcals 1.5-2.0 g protein/kg 99-132 g total protein 20-22 mL/kg 8086-1288 total fluid mLs NUTRITION DIAGNOSIS: * Swallowing difficulty R/T dysphagia as evidenced by pt is PEG dep. * Increased kcal/prot needs R/T wound healing and HD dep as evidenced by admitted w/ multiple wounds including full thickness wound @ sacrum and in web space of R 4th metatarsal at base, unstageable pressure injury at RL ischium, R heel, and R foot, and blood blisters at dorsal R 4thmetatarsal, and R 5th metatarsal dorsal and lateral aspect, h/o ESRD dx, on HD. CURRENT TF:Nepro @ 40ml/hr x 24 hrs ENTERAL NUTRITION RECOMMENDATIONS: Nepro @ 50ml/hr x 24 hrs + Prosource 1pkt QD to provide 1200ml, 2160kcal, 97g + 11g prot, 872ml free water -> Increase goal rate to 50ml/hr x 24 hrs -> add Prosource 1pkt daily to better meet protein needs -> HOB over 30 degrees/ water flush per MD ADDITIONAL RECOMMENDATIONS: * Calibrated bedscale wt post HD * Wound healing: Continue Nephrovite x 1 : add Jeremy 1pkt BID * Monitor renal labs + lytes * Monitor BGs closely for hypoglycemia thank you Lalo Rodriguez Jan 15, 2019 14:40
--- NOTE | 2019-01-15 14:58 | NUR ---
NURSE NOTES: dressing changed per order. turned and repositioned q2hrs. will continue to monitor.
[2019-01-15 16:44] VITALS: BP 135/58
--- NOTE | 2019-01-15 18:25 | Nephrology Progress Note ---
Assessment/Plan Problem List: (1) ESRD (end stage renal disease) on dialysis (2) Complications, dialysis, catheter, mechanical (3) Anemia in chronic kidney disease (CKD) Assessment Malfunctioning dialysis catheter ESRD , Uremia DM OOC Anemia of CKD BPH Plan One gram Vanco IV for high WBCs ANCA kidney noted Dialysis done 01/12 after cath replaced by IR EPO Per consultants 2D echo dialysis again 01/14- in process when patient seen- tolerating well. Echo: Left ventricular ejection fraction estimated to be 65-70 %. No left ventricular hypertrophy. Subjective ROS Limited/Unobtainable: No Constitutional: Reports: malaise Objective Objective Last 24 Hour Vital Signs Date Time Temp Pulse Resp B/P (MAP) Pulse Ox O2 Delivery O2 Flow Rate FiO2 01/15/19 16:44 97.3 83 20 135/58 (83) 94 01/15/19 12:00 98.6 81 19 115/53 (73) 94 01/15/19 09:12 81 100/63 01/15/19 09:00 Room Air 01/15/19 08:00 98.2 81 19 100/63 (75) 94 01/15/19 04:00 98.2 85 19 134/80 (98) 01/15/19 00:00 97.3 92 21 142/78 (99) 96 01/14/19 20:31 82 134/76 01/14/19 20:12 Nasal Cannula 2.0 01/14/19 20:00 98.4 87 21 138/75 (96) 98 Intake and Output 01/14/19 01/15/19 19:00 07:00 Intake Total 960 ml 1030 ml Output Total 1800 ml 1800 ml Balance -840 ml -770 ml Intake Free Water 450 ml 510 ml Tube Feeding 510 ml 520 ml Output Hemodialysis UF 1800 ml 1800 ml # Voids 2 # Bowel Movements 1 2 Laboratory Tests 01/15/19 05:50: White Blood Count 15.6H, Red Blood Count 3.65L, Hemoglobin 10.8L, Hematocrit 32.5L, Mean Corpuscular Volume 89, Mean Corpuscular Hemoglobin 29.6, Mean Corpuscular Hemoglobin Concent 33.3, Red Cell Distribution Width 14.2, Platelet Count 304, Mean Platelet Volume 4.6L, Neutrophils (%) (Auto) 82.5H, Lymphocytes (%) (Auto) 6.9L, Monocytes (%) (Auto) 7.9, Eosinophils (%) (Auto) 2.1, Basophils (%) (Auto) 0.7, Sodium Level 139, Potassium Level 4.1, Chloride Level 100, Carbon Dioxide Level 29, Anion Gap 10, Blood Urea Nitrogen 75H, Creatinine 3.8H, Estimat Glomerular Filtration Rate , Glucose Level 78, Calcium Level 9.2, Phosphorus Level 4.6, Magnesium Level 2.1, Total Bilirubin 0.4, Aspartate Amino Transf (AST/SGOT) 28, Alanine Aminotransferase (ALT/SGPT) 41, Alkaline Phosphatase 182H, C-Reactive Protein, Quantitative 18.3H, Total Protein 7.6, Albumin 1.9L, Globulin 5.7, Albumin/Globulin Ratio 0.3L Height (Feet): 5 Height (Inches): 9.00 Weight (Pounds): 172 General Appearance: no apparent distress Cardiovascular: normal rate Respiratory/Chest: decreased breath sounds Abdomen: soft Objective no change Juan Eckert MD Jan 15, 2019 18:25
--- NOTE | 2019-01-15 19:10 | NUR ---
NURSE NOTES: Received pt from GERALD Young. AAO x 2, forgetful, on room air. GT patent and intact, infusing Nepro @ 40cc/hr, tolerating well. Perma cath intact on R chest. IV site intact and patent. No resp. distress noted. Will change dressing on sacral and R foot. Contact and Fall precaution maintained. Bed locked, lowest position, alarm on, side rails up, call light within reach. Will continue to monitor.
--- NOTE | 2019-01-15 19:16 | NUR ---
HAND-OFF: Report given to Aminah DUARTE.
[2019-01-15] MEDS ORDERED: Vancomycin 1 GM in D5W 275 ML IVPB ONE (19:30)
[2019-01-15 20:00] VITALS: BP 135/78
[2019-01-15] MEDS: Atorvastatin 20mg tab GT SCH (20:30)
[2019-01-15] MEDS ORDERED: Dakin's 0.125% Soln (Quarter Strength) 16oz TOPIC SCH (21:00)
[2019-01-15] MEDS ORDERED: Levemir Flexpen SUBQ SCH (21:00)
--- NOTE | 2019-01-15 21:34 | General Progress Note ---
Assessment/Plan Problem List: (1) Inadequate dialysis SNOMED: 577407808 (2) Abnormal laboratory test result ICD Codes: R89.9 - Unspecified abnormal finding in specimens from other organs , systems and tissues SNOMED: 578247763 (3) Dialysis patient ICD Codes: Z99.2 - Dependence on renal dialysis SNOMED: 867368664 (4) Signs and symptoms of anemia ICD Codes: D64.9 - Anemia, unspecified SNOMED: 06101882, 974295462 Status: progressing Assessment/Plan: hypoglycemia improved leukocytosis is getting worse repair diaylsis access Subjective ROS Limited/Unobtainable: Yes Allergies: Coded Allergies: PENICILLINS (Verified Allergy, Unknown, 01/11/19) Objective Last 24 Hour Vital Signs Date Time Temp Pulse Resp B/P (MAP) Pulse Ox O2 Delivery O2 Flow Rate FiO2 01/15/19 20:31 89 135/78 01/15/19 16:44 97.3 83 20 135/58 (83) 94 01/15/19 12:00 98.6 81 19 115/53 (73) 94 01/15/19 09:12 81 100/63 01/15/19 09:00 Room Air 01/15/19 08:00 98.2 81 19 100/63 (75) 94 01/15/19 04:00 98.2 85 19 134/80 (98) 01/15/19 00:00 97.3 92 21 142/78 (99) 96 Intake and Output 01/14/19 01/15/19 19:00 07:00 Intake Total 960 ml 1030 ml Output Total 1800 ml 1800 ml Balance -840 ml -770 ml Intake Free Water 450 ml 510 ml Tube Feeding 510 ml 520 ml Output Hemodialysis UF 1800 ml 1800 ml # Voids 2 # Bowel Movements 1 2 Laboratory Tests 01/15/19 05:50: White Blood Count 15.6H, Red Blood Count 3.65L, Hemoglobin 10.8L, Hematocrit 32.5L, Mean Corpuscular Volume 89, Mean Corpuscular Hemoglobin 29.6, Mean Corpuscular Hemoglobin Concent 33.3, Red Cell Distribution Width 14.2, Platelet Count 304, Mean Platelet Volume 4.6L, Neutrophils (%) (Auto) 82.5H, Lymphocytes (%) (Auto) 6.9L, Monocytes (%) (Auto) 7.9, Eosinophils (%) (Auto) 2.1, Basophils (%) (Auto) 0.7, Sodium Level 139, Potassium Level 4.1, Chloride Level 100, Carbon Dioxide Level 29, Anion Gap 10, Blood Urea Nitrogen 75H, Creatinine 3.8H, Estimat Glomerular Filtration Rate , Glucose Level 78, Calcium Level 9.2, Phosphorus Level 4.6, Magnesium Level 2.1, Total Bilirubin 0.4, Aspartate Amino Transf (AST/SGOT) 28, Alanine Aminotransferase (ALT/SGPT) 41, Alkaline Phosphatase 182H, C-Reactive Protein, Quantitative 18.3H, Total Protein 7.6, Albumin 1.9L, Globulin 5.7, Albumin/Globulin Ratio 0.3L Height (Feet): 5 Height (Inches): 9.00 Weight (Pounds): 172 Fatou Santoro MD Jan 15, 2019 21:34
--- NOTE | 2019-01-15 23:30 | NUR ---
NURSE NOTES: Wound dressing changed on sacral, R foot per order. Wound pic taken
[2019-01-16] VITALS: BP 152/74
[2019-01-16] MEDS: NovoLOG Insulin Flexpen SUBQ SCH ×4 (01:03→17:12)
[2019-01-16 04:00] VITALS: BP 150/66
--- NOTE | 2019-01-16 05:52 | NUR ---
NURSE NOTES: Pt refused blood sugar check and insulin. Reinforced education but pt still refused x 3.
[2019-01-16 07:15] LABS: ALANINE AMINOTRANSFERASE 32 U/L (12-78); ALBUMIN 1.9 G/DL (3.4-5.0); ALBUMIN/GLOBULIN RATIO 0.3 (1.0-2.7); ALKALINE PHOSPHATASE 188 U/L (46-116); ANION GAP 10 mmol/L (5-15); ASPARTATE AMINO TRANSFERASE 23 U/L (15-37); BILIRUBIN,TOTAL 0.5 MG/DL (0.2-1.0); BLOOD UREA NITROGEN 97 mg/dL (7-18); CALCIUM 9.7 MG/DL (8.5-10.1); CARBON DIOXIDE 27 MMOL/L (21-32); CHLORIDE 100 MMOL/L (98-107); CREATININE 4.6 MG/DL (0.55-1.30); PHOSPHORUS 5.2 MG/DL (2.5-4.9); POTASSIUM 4.5 MMOL/L (3.5-5.1); SODIUM 137 MMOL/L (136-145)
[2019-01-16 07:22] LABS: HEMATOCRIT 32.2 % (42.0-52.0); HEMOGLOBIN 10.6 G/DL (14.2-18.0); MEAN CORPUSCULAR VOLUME 90 FL (80-99); PLATELET COUNT 308 K/UL (150-450); RED CELL DISTRIBUTION WIDTH 14.3 % (11.6-14.8); WHITE BLOOD COUNT 14.9 K/UL (4.8-10.8)
--- NOTE | 2019-01-16 07:39 | NUR ---
NURSE NOTES: pt resting in bed. awake, A/O x 1-2, confused, denies pain. L AKA, HOB>30degrees, pts on cont GT feeding, no residual, tolerating well. Dressing CDI, turned and reposition q2hrs, call light within reach, bed in low position, bed alarm on, fall and asp precaution maintained. will continue to monitor.
--- NOTE | 2019-01-16 07:42 | NUR ---
HAND-OFF: Report given to GERALD Young.
[2019-01-16 08:00] VITALS: BP 147/67
[2019-01-16] MEDS: Zinc Sulfate 220mg cap GT SCH (08:50)
[2019-01-16] MEDS: Docusate 100mg/10ml Liq GT SCH ×3 (08:50→17:11)
[2019-01-16] MEDS: Nephrovite tab (Rena-Vite) GT SCH (08:50)
[2019-01-16] MEDS: Carvedilol 6.25mg Tab GT SCH ×2 (08:50→21:32)
[2019-01-16] MEDS: Lactulose 20gm/30ml UDC GT SCH (08:51)
[2019-01-16] MEDS: Dakin's 0.125% Soln (Quarter Strength) 16oz TOPIC SCH ×2 (09:00→21:32)
--- NOTE | 2019-01-16 10:08 | Nephrology Progress Note ---
Assessment/Plan Problem List: (1) ESRD (end stage renal disease) on dialysis (2) Complications, dialysis, catheter, mechanical (3) Anemia in chronic kidney disease (CKD) Assessment Malfunctioning dialysis catheter ESRD , Uremia DM OOC Anemia of CKD BPH Plan One gram Vanco IV for high WBCs on 01/15/19 HD in am previously [facility] kidney noted Dialysis done 01/12 after cath replaced by IR EPO Per consultants 2D echo Left ventricular ejection fraction estimated to be 65-70 %. dialysis again 01/14- in process when patient seen- tolerating well. Echo: Left ventricular ejection fraction estimated to be 65-70 %. No left ventricular hypertrophy. Subjective ROS Limited/Unobtainable: No Constitutional: Reports: malaise Objective Objective Last 24 Hour Vital Signs Date Time Temp Pulse Resp B/P (MAP) Pulse Ox O2 Delivery O2 Flow Rate FiO2 01/16/19 09:00 Room Air 01/16/19 08:50 88 147/67 01/16/19 08:00 97.8 88 18 147/67 (93) 95 01/16/19 04:00 97.5 84 20 150/66 (94) 95 01/16/19 00:00 98.0 82 21 152/74 (100) 95 01/15/19 21:00 Room Air 01/15/19 20:31 89 135/78 01/15/19 20:00 97.0 89 20 135/78 (97) 97 01/15/19 16:44 97.3 83 20 135/58 (83) 94 01/15/19 12:00 98.6 81 19 115/53 (73) 94 Intake and Output 01/15/19 01/16/19 19:00 07:00 Intake Total 930 ml 930 ml Output Total 2450 ml Balance 930 ml -1520 ml Intake Free Water 450 ml 450 ml Tube Feeding 480 ml 480 ml Output Urine Total 650 ml Hemodialysis UF 1800 ml # Voids 2 # Bowel Movements 1 1 Laboratory Tests 01/16/19 06:00: White Blood Count 14.9H, Red Blood Count 3.60L, Hemoglobin 10.6L, Hematocrit 32.2L, Mean Corpuscular Volume 90, Mean Corpuscular Hemoglobin 29.4, Mean Corpuscular Hemoglobin Concent 32.8, Red Cell Distribution Width 14.3, Platelet Count 308, Mean Platelet Volume 4.6L, Neutrophils (%) (Auto) , Lymphocytes (%) ( Auto) , Monocytes (%) (Auto) , Eosinophils (%) (Auto) , Basophils (%) (Auto) , Differential Total Cells Counted 100, Neutrophils % (Manual) 84H, Lymphocytes % (Manual) 7L, Monocytes % (Manual) 6, Eosinophils % (Manual) 2, Basophils % ( Manual) 0, Band Neutrophils 1, Platelet Estimate Adequate, Platelet Morphology Normal, Anisocytosis 1+, Sodium Level 137, Potassium Level 4.5, Chloride Level 100, Carbon Dioxide Level 27, Anion Gap 10, Blood Urea Nitrogen 97H, Creatinine 4.6H, Estimat Glomerular Filtration Rate , Glucose Level 186#H, Calcium Level 9.7, Phosphorus Level 5.2H, Magnesium Level 2.4, Total Bilirubin 0.5, Aspartate Amino Transf (AST/SGOT) 23, Alanine Aminotransferase (ALT/SGPT) 32, Alkaline Phosphatase 188H, C-Reactive Protein, Quantitative 22.4H, Total Protein 7.4, Albumin 1.9L, Globulin 5.5, Albumin/Globulin Ratio 0.3L Height (Feet): 5 Height (Inches): 9.00 Weight (Pounds): 172 General Appearance: no apparent distress Cardiovascular: normal rate Respiratory/Chest: decreased breath sounds Abdomen: soft Objective no change Juan Eckert MD Jan 16, 2019 10:08
--- NOTE | 2019-01-16 10:26 | Diagnostic Imaging Report ---
EXAM: XR Chest, 1 View CLINICAL HISTORY: INFECT TECHNIQUE: Frontal view of the chest. COMPARISON: Chest x-ray 01/11/19 FINDINGS: Lungs: Slightly increased bilateral interstitial and mild airspace opacities. Pleural space: Unremarkable. No pneumothorax. Heart: Mild cardiomegaly. Mediastinum: Unremarkable. Bones/joints: Unremarkable. Tubes, lines and devices: Right IJ dual-lumen central venous catheter has been advanced, one of the lumens at the cavoatrial junction, the other lumen likely into the right atrium. IMPRESSION: 1. Right IJ dual-lumen central venous catheter has been advanced, one of the lumens at the cavoatrial junction, the other lumen likely into the right atrium. 2. Slightly increased bilateral interstitial and mild airspace opacities.
--- NOTE | 2019-01-16 11:58 | General Progress Note ---
Assessment/Plan Problem List: (1) Inadequate dialysis SNOMED: 242729768 (2) Abnormal laboratory test result ICD Codes: R89.9 - Unspecified abnormal finding in specimens from other organs , systems and tissues SNOMED: 027099566 (3) Dialysis patient ICD Codes: Z99.2 - Dependence on renal dialysis SNOMED: 599344555 (4) Signs and symptoms of anemia ICD Codes: D64.9 - Anemia, unspecified SNOMED: 52823029, 337099254 Status: progressing Assessment/Plan: hypoglycemia improved leukocytosis is persistent repaired diaylsis access abx per id afebrile Subjective Constitutional: Reports: no symptoms Allergies: Coded Allergies: PENICILLINS (Verified Allergy, Unknown, 01/11/19) Objective Last 24 Hour Vital Signs Date Time Temp Pulse Resp B/P (MAP) Pulse Ox O2 Delivery O2 Flow Rate FiO2 01/16/19 09:00 Room Air 01/16/19 08:50 88 147/67 01/16/19 08:00 97.8 88 18 147/67 (93) 95 01/16/19 04:00 97.5 84 20 150/66 (94) 95 01/16/19 00:00 98.0 82 21 152/74 (100) 95 01/15/19 21:00 Room Air 01/15/19 20:31 89 135/78 01/15/19 20:00 97.0 89 20 135/78 (97) 97 01/15/19 16:44 97.3 83 20 135/58 (83) 94 01/15/19 12:00 98.6 81 19 115/53 (73) 94 Intake and Output 01/15/19 01/16/19 19:00 07:00 Intake Total 930 ml 930 ml Output Total 2450 ml Balance 930 ml -1520 ml Intake Free Water 450 ml 450 ml Tube Feeding 480 ml 480 ml Output Urine Total 650 ml Hemodialysis UF 1800 ml # Voids 2 # Bowel Movements 1 1 Laboratory Tests 01/16/19 06:00: White Blood Count 14.9H, Red Blood Count 3.60L, Hemoglobin 10.6L, Hematocrit 32.2L, Mean Corpuscular Volume 90, Mean Corpuscular Hemoglobin 29.4, Mean Corpuscular Hemoglobin Concent 32.8, Red Cell Distribution Width 14.3, Platelet Count 308, Mean Platelet Volume 4.6L, Neutrophils (%) (Auto) , Lymphocytes (%) ( Auto) , Monocytes (%) (Auto) , Eosinophils (%) (Auto) , Basophils (%) (Auto) , Differential Total Cells Counted 100, Neutrophils % (Manual) 84H, Lymphocytes % (Manual) 7L, Monocytes % (Manual) 6, Eosinophils % (Manual) 2, Basophils % ( Manual) 0, Band Neutrophils 1, Platelet Estimate Adequate, Platelet Morphology Normal, Anisocytosis 1+, Sodium Level 137, Potassium Level 4.5, Chloride Level 100, Carbon Dioxide Level 27, Anion Gap 10, Blood Urea Nitrogen 97H, Creatinine 4.6H, Estimat Glomerular Filtration Rate , Glucose Level 186#H, Calcium Level 9.7, Phosphorus Level 5.2H, Magnesium Level 2.4, Total Bilirubin 0.5, Aspartate Amino Transf (AST/SGOT) 23, Alanine Aminotransferase (ALT/SGPT) 32, Alkaline Phosphatase 188H, C-Reactive Protein, Quantitative 22.4H, Total Protein 7.4, Albumin 1.9L, Globulin 5.5, Albumin/Globulin Ratio 0.3L Height (Feet): 5 Height (Inches): 9.00 Weight (Pounds): 172 Neck: supple Cardiovascular: normal rate Respiratory/Chest: lungs clear Abdomen: soft Fatou Santoro MD Jan 16, 2019 11:58
[2019-01-16 12:00] VITALS: BP 141/66
--- NOTE | 2019-01-16 13:33 | General Progress Note ---
Assessment/Plan Problem List: (1) Hypoglycemia ICD Codes: E16.2 - Hypoglycemia, unspecified SNOMED: 024988756 (2) Diabetes mellitus out of control ICD Codes: E11.65 - Type 2 diabetes mellitus with hyperglycemia SNOMED: 22532943, 431566699 (3) ESRD (end stage renal disease) on dialysis ICD Codes: N18.6 - End stage renal disease; Z99.2 - Dependence on renal dialysis SNOMED: 710678005 Status: progressing Assessment/Plan: increase Levemir to 14 units qhs continue NISS Subjective ROS Limited/Unobtainable: Yes Allergies: Coded Allergies: PENICILLINS (Verified Allergy, Unknown, 01/11/19) Subjective events glucose values on higher side Item Value Date Time Bedside Blood Glucose 201 mg/dl H 01/16/19 1224 Bedside Blood Glucose 247 mg/dl H 01/16/19 0103 Bedside Blood Glucose 218 mg/dl H 01/15/19 2036 Bedside Blood Glucose 165 mg/dl H 01/15/19 1719 Objective Last 24 Hour Vital Signs Date Time Temp Pulse Resp B/P (MAP) Pulse Ox O2 Delivery O2 Flow Rate FiO2 01/16/19 12:00 98.4 81 18 141/66 (91) 95 01/16/19 09:00 Room Air 01/16/19 08:50 88 147/67 01/16/19 08:00 97.8 88 18 147/67 (93) 95 01/16/19 04:00 97.5 84 20 150/66 (94) 95 01/16/19 00:00 98.0 82 21 152/74 (100) 95 01/15/19 21:00 Room Air 01/15/19 20:31 89 135/78 01/15/19 20:00 97.0 89 20 135/78 (97) 97 01/15/19 16:44 97.3 83 20 135/58 (83) 94 Intake and Output 01/15/19 01/16/19 19:00 07:00 Intake Total 930 ml 930 ml Output Total 2450 ml Balance 930 ml -1520 ml Intake Free Water 450 ml 450 ml Tube Feeding 480 ml 480 ml Output Urine Total 650 ml Hemodialysis UF 1800 ml # Voids 2 # Bowel Movements 1 1 Laboratory Tests 01/16/19 06:00: White Blood Count 14.9H, Red Blood Count 3.60L, Hemoglobin 10.6L, Hematocrit 32.2L, Mean Corpuscular Volume 90, Mean Corpuscular Hemoglobin 29.4, Mean Corpuscular Hemoglobin Concent 32.8, Red Cell Distribution Width 14.3, Platelet Count 308, Mean Platelet Volume 4.6L, Neutrophils (%) (Auto) , Lymphocytes (%) ( Auto) , Monocytes (%) (Auto) , Eosinophils (%) (Auto) , Basophils (%) (Auto) , Differential Total Cells Counted 100, Neutrophils % (Manual) 84H, Lymphocytes % (Manual) 7L, Monocytes % (Manual) 6, Eosinophils % (Manual) 2, Basophils % ( Manual) 0, Band Neutrophils 1, Platelet Estimate Adequate, Platelet Morphology Normal, Anisocytosis 1+, Sodium Level 137, Potassium Level 4.5, Chloride Level 100, Carbon Dioxide Level 27, Anion Gap 10, Blood Urea Nitrogen 97H, Creatinine 4.6H, Estimat Glomerular Filtration Rate , Glucose Level 186#H, Calcium Level 9.7, Phosphorus Level 5.2H, Magnesium Level 2.4, Total Bilirubin 0.5, Aspartate Amino Transf (AST/SGOT) 23, Alanine Aminotransferase (ALT/SGPT) 32, Alkaline Phosphatase 188H, C-Reactive Protein, Quantitative 22.4H, Total Protein 7.4, Albumin 1.9L, Globulin 5.5, Albumin/Globulin Ratio 0.3L Height (Feet): 5 Height (Inches): 9.00 Weight (Pounds): 171 General Appearance: no apparent distress Neck: normal alignment Cardiovascular: normal rate Respiratory/Chest: lungs clear Abdomen: normal bowel sounds Objective Current Medications Medications (Trade) Dose Ordered Sig/Mariangel Route PRN Reason Start Time Stop Time Status Last Admin Dose Admin Atorvastatin Calcium (Lipitor) 20 mg BEDTIME GT 01/13/19 21:00 02/10/19 20:59 01/15/19 20:30 Carvedilol (Coreg) 6.25 mg EVERY 12 HOURS GT 01/13/19 21:00 02/10/19 20:59 01/16/19 08:50 Dextrose (Dextrose 50%) 25 ml Q30M PRN IV Hypoglycemia 01/13/19 17:15 02/10/19 20:44 01/15/19 11:53 Dextrose (Dextrose 50%) 50 ml Q30M PRN IV Hypoglycemia 01/13/19 17:15 02/10/19 20:44 01/13/19 17:54 Docusate Sodium (Colace) 100 mg TID GT 01/13/19 18:00 02/10/19 17:59 01/16/19 08:50 Epoetin Bartolome (Epoetin Bartolome(ESRD on dialysis)) 10,000 unit THU-THU-THU SUBQ 01/14/19 21:00 02/11/19 20:59 01/14/19 20:31 Famotidine (Pepcid) 20 mg BID GT 01/13/19 18:00 02/11/19 17:59 01/16/19 08:50 Finasteride (Proscar) 5 mg DAILY ORAL 01/14/19 09:00 02/11/19 08:59 01/16/19 08:50 Insulin Aspart (NovoLOG) EVERY 6 HOURS SUBQ 01/13/19 18:30 02/11/19 18:29 01/16/19 12:24 Insulin Detemir (Levemir) 10 units QHS SUBQ 01/15/19 21:00 02/13/19 08:59 01/15/19 20:36 Lactulose (Cephulac) 20 gm DAILY GT 01/14/19 09:00 02/11/19 08:59 01/16/19 08:51 Levofloxacin (Levaquin) 500 mg Q48H ORAL 01/15/19 14:00 01/22/19 13:59 01/15/19 14:00 Sodium Hypochlorite (Dakin's Quarter Strength) 1 applic Q12HR TOPIC 01/15/19 21:00 02/11/19 17:59 01/16/19 09:00 Vitamin B Complex/ Vit C/Folic Acid (Nephrovite) 1 tab DAILY GT 01/14/19 09:00 02/11/19 08:59 01/16/19 08:50 Zinc Sulfate (Zinc Sulfate) 220 mg DAILY GT 01/14/19 09:00 02/11/19 08:59 01/16/19 08:50 Juan Lucero MD Jan 16, 2019 13:33
--- NOTE | 2019-01-16 13:37 | Surgery Progress Note ---
Surgery Progress Note Subjective Additional Comments stable no acute events wbc trending down Objective Last 24 Hour Vital Signs Date Time Temp Pulse Resp B/P (MAP) Pulse Ox O2 Delivery O2 Flow Rate FiO2 01/16/19 12:00 98.4 81 18 141/66 (91) 95 01/16/19 09:00 Room Air 01/16/19 08:50 88 147/67 01/16/19 08:00 97.8 88 18 147/67 (93) 95 01/16/19 04:00 97.5 84 20 150/66 (94) 95 01/16/19 00:00 98.0 82 21 152/74 (100) 95 01/15/19 21:00 Room Air 01/15/19 20:31 89 135/78 01/15/19 20:00 97.0 89 20 135/78 (97) 97 01/15/19 16:44 97.3 83 20 135/58 (83) 94 I&O Intake and Output 01/15/19 01/16/19 19:00 07:00 Intake Total 930 ml 930 ml Output Total 2450 ml Balance 930 ml -1520 ml Intake Free Water 450 ml 450 ml Tube Feeding 480 ml 480 ml Output Urine Total 650 ml Hemodialysis UF 1800 ml # Voids 2 # Bowel Movements 1 1 Dressing: saturated Wound: other Drains: other Cardiovascular: RSR Respiratory: clear, decreased breath sounds Abdomen: soft, present bowel sounds Extremities: no cyanosis, other Laboratory Tests Test 01/16/19 06:00 White Blood Count 14.9 K/UL (4.8-10.8) H Red Blood Count 3.60 M/UL (4.70-6.10) L Hemoglobin 10.6 G/DL (14.2-18.0) L Hematocrit 32.2 % (42.0-52.0) L Mean Corpuscular Volume 90 FL (80-99) Mean Corpuscular Hemoglobin 29.4 PG (27.0-31.0) Mean Corpuscular Hemoglobin Concent 32.8 G/DL (32.0-36.0) Red Cell Distribution Width 14.3 % (11.6-14.8) Platelet Count 308 K/UL (150-450) Mean Platelet Volume 4.6 FL (6.5-10.1) L Neutrophils (%) (Auto) % (45.0-75.0) Lymphocytes (%) (Auto) % (20.0-45.0) Monocytes (%) (Auto) % (1.0-10.0) Eosinophils (%) (Auto) % (0.0-3.0) Basophils (%) (Auto) % (0.0-2.0) Differential Total Cells Counted 100 Neutrophils % (Manual) 84 % (45-75) H Lymphocytes % (Manual) 7 % (20-45) L Monocytes % (Manual) 6 % (1-10) Eosinophils % (Manual) 2 % (0-3) Basophils % (Manual) 0 % (0-2) Band Neutrophils 1 % (0-8) Platelet Estimate Adequate Platelet Morphology Normal Anisocytosis 1+ Sodium Level 137 MMOL/L (136-145) Potassium Level 4.5 MMOL/L (3.5-5.1) Chloride Level 100 MMOL/L (98-107) Carbon Dioxide Level 27 MMOL/L (21-32) Anion Gap 10 mmol/L (5-15) Blood Urea Nitrogen 97 mg/dL (7-18) H Creatinine 4.6 MG/DL (0.55-1.30) H Estimat Glomerular Filtration Rate mL/min (>60) Glucose Level 186 MG/DL (74-106) #H Calcium Level 9.7 MG/DL (8.5-10.1) Phosphorus Level 5.2 MG/DL (2.5-4.9) H Magnesium Level 2.4 MG/DL (1.8-2.4) Total Bilirubin 0.5 MG/DL (0.2-1.0) Aspartate Amino Transf (AST/SGOT) 23 U/L (15-37) Alanine Aminotransferase (ALT/SGPT) 32 U/L (12-78) Alkaline Phosphatase 188 U/L (46-116) H C-Reactive Protein, Quantitative 22.4 mg/dL (0.00-0.90) H Total Protein 7.4 G/DL (6.4-8.2) Albumin 1.9 G/DL (3.4-5.0) L Globulin 5.5 g/dL Albumin/Globulin Ratio 0.3 (1.0-2.7) L Plan Problems: (1) Decubitus skin ulcer Assessment & Plan: Pt presented on admission with multiple pressure injuries. 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 Full thickness sacral pressure that is malodorous (L)7.5cm x (W)5cm x (D)2.9cm, undermining clockwise9-5 by 2.3cm @9o'clock. Base of wound has 60% slough at base. Sacral bone palpable. Edges and periwound are erythematous with scattered slough. Epibole noted along edges.Small amt brownish exudate noted. At left of sacral wound additional opening measuring 8.8cm x (W)2.5cm with 75% slough . Additional openings and erythema also noted to R of sacral wound. Unstageable pressure injury R ischium . Base of has 100% soft necrosis with surrounding erythematous and moist borders. Wound is malodorous(L)1.7cm x (W) 1.7cm. Non-blanching erythema with shearing periwound. Unstageable pressure injury L ischium. Base of wound is 100% necrotic with red and indurated borders. Wound is malodorous. Non-blanching erythema periwound.(L) 4.7cm x (W)2.3cm. Base of scrotum is erythematous. Unstageable pressure injury R heel. Base of wound is 100% soft necrosis with detached borders that erythematous with small amt of slough. Wound is malodorous.(L)1.8cm x (W)2cm. Unstageable pressure injury lateral R foot . Base of wound is 100% stable dry eschar. Edges area adherent and flat. NO odor noted. Periwound without erythema ,induration or fluctuance.(L)1cm x (W)1cm. Blood blisters noted to dorsal R 4thmetatarsal, and R 5th metatarsal dorsal and lateral aspect. In web space of R 4th metatarsal at base,full thickness ulcer noted with small amt sanguineous exudate. Wound is malodorous.(L)0.9cm x (W) 1.2cm. Tx.plan: Cleanse sacral wound with Dakin's ashok 0.125%. Loosely pack wound with Dakin's moistened Kerlix. Apply Moisture Barrier Paste periwound. Cover with Optifoam drsg Twice daily and prn. Cleanse wound R ischium with Dakin's ashok 0.125%. Apply Dakin's moist gauze. Apply Moisture Barrier periwound. Cover with Optifoam drsg Twice Daily and prn. Cleanse wound L Ischium with Dakin's ashok 0.125%. Apply Dakin's moist Gauze. Cover with Optifoam drsg Twice Daily and prn. Apply Betadine to R heel,lateral R foot.Cover with Abd pad and wrap with kerlix Daily and prn. Apply Betadine to wound web space of R 4th metatarsal.Separate toes with Gauze. Wrap with Kerlix Daily and prn. Swab Blisters R 4th and 5th metatarsals with Betadine Daily. Apply Moisture Barrier Paste to scrotum with each incontinence care. APM/HAM Mattress overlay. Reposition at least every 2hours or as tolerated. Place pillow between R knee and L AKA. Off-load R heel with pillow. (2) Leukocytosis Assessment & Plan: stable leukocytosis wounds re-evaluated unlikely etiology of wbc is wounds they are chronic but will monitor DAILY ESTIMATED NEEDS: Needs based on ESRD+ HD, advanced wounds/ 66kg 30-35 kcals/kg 7644-7597 total kcals 1.5-2.0 g protein/kg 99-132 g total protein 20-22 mL/kg 1396-3457 total fluid mLs NUTRITION DIAGNOSIS: * Swallowing difficulty R/T dysphagia as evidenced by pt is PEG dep. * Increased kcal/prot needs R/T wound healing and HD dep as evidenced by admitted w/ multiple wounds including full thickness wound @ sacrum and in web space of R 4th metatarsal at base, unstageable pressure injury at RL ischium, R heel, and R foot, and blood blisters at dorsal R 4thmetatarsal, and R 5th metatarsal dorsal and lateral aspect, h/o ESRD dx, on HD. CURRENT TF:Nepro @ 40ml/hr x 24 hrs ENTERAL NUTRITION RECOMMENDATIONS: Nepro @ 50ml/hr x 24 hrs + Prosource 1pkt QD to provide 1200ml, 2160kcal, 97g + 11g prot, 872ml free water -> Increase goal rate to 50ml/hr x 24 hrs -> add Prosource 1pkt daily to better meet protein needs -> HOB over 30 degrees/ water flush per MD ADDITIONAL RECOMMENDATIONS: * Calibrated bedscale wt post HD * Wound healing: Continue Nephrovite x 1 : add Jeremy 1pkt BID * Monitor renal labs + lytes * Monitor BGs closely for hypoglycemia thank you Lalo Rodriguez Jan 16, 2019 13:37
--- NOTE | 2019-01-16 13:54 | Hematology/Onc Progress Note ---
Assessment/Plan Assessment/Plan Assessment and Recs: # Anemia of chronic disease due to underlying chronic medical issues, multifactorial --> Anemia workup has been ordered, rule out gi bleed --> No evidence of hemolysis is noted, peripheral smear has been reviewed. --> Hgb goal >7. Transfuse prn. --> Epogen started given on hd --> does not require iron at this time --> Medications have been reviewed --> hgb trend 7.4-->10.4-->10.6 --> ferritin is 1095 # Leukocytosis/elevated white blood cell count, unspecified likely related to underlying stress reaction, v infection --> have reviewed peripheral smear and bandemia/neutrophilia noted --> meds reviewed --> trend 11-->13-->14.9 --> monitor for resolution --> on levofloxacin --> VRE++ of rectum # ESRD on hd --> as per renal --> epo # Sacral decub wounds --> per surg --> wound care # BPH # Dvt ppx scds Appreciate consultation and debi RN. Subjective Allergies: Coded Allergies: PENICILLINS (Verified Allergy, Unknown, 01/11/19) Subjective 01/14: no bleeding, cbc reviewed, no f/c, back on gtube feeds 01/15: no events, wbc is lower, no bleeding, wound care 01/16: no overnight events, wbc remains elevated, on levofloxacin Objective Objective Current Medications Medications (Trade) Dose Ordered Sig/Mariangel Route PRN Reason Start Time Stop Time Status Last Admin Dose Admin Atorvastatin Calcium (Lipitor) 20 mg BEDTIME GT 01/13/19 21:00 02/10/19 20:59 01/15/19 20:30 Carvedilol (Coreg) 6.25 mg EVERY 12 HOURS GT 01/13/19 21:00 02/10/19 20:59 01/16/19 08:50 Dextrose (Dextrose 50%) 25 ml Q30M PRN IV Hypoglycemia 01/13/19 17:15 02/10/19 20:44 01/15/19 11:53 Dextrose (Dextrose 50%) 50 ml Q30M PRN IV Hypoglycemia 01/13/19 17:15 02/10/19 20:44 01/13/19 17:54 Docusate Sodium (Colace) 100 mg TID GT 01/13/19 18:00 02/10/19 17:59 01/16/19 08:50 Epoetin Bartolome (Epoetin Bartolome(ESRD on dialysis)) 10,000 unit THU-THU-THU SUBQ 01/14/19 21:00 02/11/19 20:59 01/14/19 20:31 Famotidine (Pepcid) 20 mg BID GT 01/13/19 18:00 02/11/19 17:59 01/16/19 08:50 Finasteride (Proscar) 5 mg DAILY ORAL 01/14/19 09:00 02/11/19 08:59 01/16/19 08:50 Insulin Aspart (NovoLOG) EVERY 6 HOURS SUBQ 01/13/19 18:30 02/11/19 18:29 01/16/19 12:24 Insulin Detemir (Levemir) 14 units QHS SUBQ 01/16/19 21:00 02/13/19 08:59 Lactulose (Cephulac) 20 gm DAILY GT 01/14/19 09:00 02/11/19 08:59 01/16/19 08:51 Levofloxacin (Levaquin) 500 mg Q48H ORAL 01/15/19 14:00 01/22/19 13:59 01/15/19 14:00 Sodium Hypochlorite (Dakin's Quarter Strength) 1 applic Q12HR TOPIC 01/15/19 21:00 02/11/19 17:59 01/16/19 09:00 Vitamin B Complex/ Vit C/Folic Acid (Nephrovite) 1 tab DAILY GT 01/14/19 09:00 02/11/19 08:59 01/16/19 08:50 Zinc Sulfate (Zinc Sulfate) 220 mg DAILY GT 01/14/19 09:00 02/11/19 08:59 01/16/19 08:50 Last 24 Hour Vital Signs Date Time Temp Pulse Resp B/P (MAP) Pulse Ox O2 Delivery O2 Flow Rate FiO2 01/16/19 12:00 98.4 81 18 141/66 (91) 95 01/16/19 09:00 Room Air 01/16/19 08:50 88 147/67 01/16/19 08:00 97.8 88 18 147/67 (93) 95 01/16/19 04:00 97.5 84 20 150/66 (94) 95 01/16/19 00:00 98.0 82 21 152/74 (100) 95 01/15/19 21:00 Room Air 01/15/19 20:31 89 135/78 01/15/19 20:00 97.0 89 20 135/78 (97) 97 01/15/19 16:44 97.3 83 20 135/58 (83) 94 01/15/19 12:00 98.6 81 19 115/53 (73) 94 01/15/19 09:12 81 100/63 01/15/19 09:00 Room Air 01/15/19 08:00 98.2 81 19 100/63 (75) 94 01/15/19 04:00 98.2 85 19 134/80 (98) 01/15/19 00:00 97.3 92 21 142/78 (99) 96 01/14/19 20:31 82 134/76 01/14/19 20:12 Nasal Cannula 2.0 01/14/19 20:00 98.4 87 21 138/75 (96) 98 01/14/19 16:00 98.3 91 20 138/70 (92) 96 Intake and Output 01/15/19 01/16/19 19:00 07:00 Intake Total 930 ml 930 ml Output Total 2450 ml Balance 930 ml -1520 ml Intake Free Water 450 ml 450 ml Tube Feeding 480 ml 480 ml Output Urine Total 650 ml Hemodialysis UF 1800 ml # Voids 2 # Bowel Movements 1 1 Labs Test 01/13/19 18:00 01/14/19 05:56 01/15/19 05:50 01/16/19 06:00 Glucose Level 143 MG/DL (74-106) 78 MG/DL (74-106) 186 MG/DL (74-106) White Blood Count 15.6 K/UL (4.8-10.8) 14.9 K/UL (4.8-10.8) Red Blood Count 3.65 M/UL (4.70-6.10) 3.60 M/UL (4.70-6.10) Hemoglobin 10.8 G/DL (14.2-18.0) 10.6 G/DL (14.2-18.0) Hematocrit 32.5 % (42.0-52.0) 32.2 % (42.0-52.0) Mean Corpuscular Volume 89 FL (80-99) 90 FL (80-99) Mean Corpuscular Hemoglobin 29.6 PG (27.0-31.0) 29.4 PG (27.0-31.0) Mean Corpuscular Hemoglobin Concent 33.3 G/DL (32.0-36.0) 32.8 G/DL (32.0-36.0) Red Cell Distribution Width 14.2 % (11.6-14.8) 14.3 % (11.6-14.8) Platelet Count 304 K/UL (150-450) 308 K/UL (150-450) Mean Platelet Volume 4.6 FL (6.5-10.1) 4.6 FL (6.5-10.1) Neutrophils (%) (Auto) 82.5 % (45.0-75.0) % (45.0-75.0) Lymphocytes (%) (Auto) 6.9 % (20.0-45.0) % (20.0-45.0) Monocytes (%) (Auto) 7.9 % (1.0-10.0) % (1.0-10.0) Eosinophils (%) (Auto) 2.1 % (0.0-3.0) % (0.0-3.0) Basophils (%) (Auto) 0.7 % (0.0-2.0) % (0.0-2.0) Sodium Level 139 MMOL/L (136-145) 137 MMOL/L (136-145) Potassium Level 4.1 MMOL/L (3.5-5.1) 4.5 MMOL/L (3.5-5.1) Chloride Level 100 MMOL/L (98-107) 100 MMOL/L (98-107) Carbon Dioxide Level 29 MMOL/L (21-32) 27 MMOL/L (21-32) Anion Gap 10 mmol/L (5-15) 10 mmol/L (5-15) Blood Urea Nitrogen 75 mg/dL (7-18) 97 mg/dL (7-18) Creatinine 3.8 MG/DL (0.55-1.30) 4.6 MG/DL (0.55-1.30) Estimat Glomerular Filtration Rate mL/min (>60) mL/min (>60) Calcium Level 9.2 MG/DL (8.5-10.1) 9.7 MG/DL (8.5-10.1) Phosphorus Level 4.6 MG/DL (2.5-4.9) 5.2 MG/DL (2.5-4.9) Magnesium Level 2.1 MG/DL (1.8-2.4) 2.4 MG/DL (1.8-2.4) Total Bilirubin 0.4 MG/DL (0.2-1.0) 0.5 MG/DL (0.2-1.0) Aspartate Amino Transf (AST/SGOT) 28 U/L (15-37) 23 U/L (15-37) Alanine Aminotransferase (ALT/SGPT) 41 U/L (12-78) 32 U/L (12-78) Alkaline Phosphatase 182 U/L (46-116) 188 U/L (46-116) C-Reactive Protein, Quantitative 18.3 mg/dL (0.00-0.90) 22.4 mg/dL (0.00-0.90) Total Protein 7.6 G/DL (6.4-8.2) 7.4 G/DL (6.4-8.2) Albumin 1.9 G/DL (3.4-5.0) 1.9 G/DL (3.4-5.0) Globulin 5.7 g/dL 5.5 g/dL Albumin/Globulin Ratio 0.3 (1.0-2.7) 0.3 (1.0-2.7) Differential Total Cells Counted 100 Neutrophils % (Manual) 84 % (45-75) Lymphocytes % (Manual) 7 % (20-45) Monocytes % (Manual) 6 % (1-10) Eosinophils % (Manual) 2 % (0-3) Basophils % (Manual) 0 % (0-2) Band Neutrophils 1 % (0-8) Platelet Estimate Adequate Platelet Morphology Normal Anisocytosis 1+ Height (Feet): 5 Height (Inches): 9.00 Weight (Pounds): 171 Objective Physical Exam: Vitals: reviewed General Appearance: NAD HEENT: normocephalic, atraumatic Neck: non-tender, normal alignment Respiratory/Chest: normal breath sounds bilaterally Cardiovascular/Chest: normal peripheral pulses, normal rate Abdomen: normal bowel sounds, soft, nontender Extremities: normal range of motion ++ catheter replaced by Kashmir Akhtar MD Jan 16, 2019 13:54
--- NOTE | 2019-01-16 14:01 | NUR ---
CHARGE NURSE NOTE: Spoke with Kashmir KOCH that pt is scheduled for HD01/17/19. He is aware.
[2019-01-16 16:00] VITALS: BP 138/70
[2019-01-16 20:00] VITALS: BP 153/86
--- NOTE | 2019-01-16 20:00 | NUR ---
NURSE NOTES: Received pt in bed. AAO X3 forgetful,using NC 2L/min. No s/s of respiratory distress noted. IV site patent and intact. G-tube in place, infusing Nepro 40 ml/hr. on right upper chest Perma cath placed. Bed in lowest position. Call light within reach. Will continue to provide plan of care.
[2019-01-16] MEDS ORDERED: Levemir Flexpen SUBQ SCH (21:00)
--- NOTE | 2019-01-16 21:00 | NUR ---
NURSE NOTES: G-tube in place, infusing Nepro 40 ml/hr, 0 ml residual noted. firm and distended around G-tube area noted. notified charge nurse Nelly DUARTE and assessed patient with charge nurse. no c/o of pain, nausea, or vomiting. no acute distress noted. elevated HOB. will continue to monitor. Addendum: 01/17/19 at 0044 by Marcelina Townsend RN charge nurse Regina DUARTE
--- NOTE | 2019-01-16 21:30 | Consultation ---
DATE OF CONSULTATION: 01/16/2019 INFECTIOUS DISEASE CONSULTATION CONSULTING PHYSICIAN: Enoch Chisholm M.D. PRIMARY ATTENDING PHYSICIAN: Fatou Santoro M.D. REASON FOR CONSULTATION: Leukocytosis. HISTORY OF PRESENT ILLNESS: This is a 78-year-old white male admitted on 01/11/2019 from a halfway facility for malfunctioning of PermCath. PermCath was replaced by radiologist on 01/12/2019. The patient's leukocytosis gradually going up from the day of admission from 11,000 to 15.6 yesterday, and today is 14.9. He has also abnormal chest x-ray. 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 ALLERGIES: Allergic to penicillin. MEDICATIONS: Levemir insulin, sodium chloride ,Levaquin, Epogen, finasteride, lactulose, carvedilol, insulin, Colace, and famotidine. SOCIAL HISTORY: . No recent history of alcohol, drug abuse, or smoking. He has four children. He is bedbound. REVIEW OF SYSTEMS: The patient had no fever, no pain. No coughing. No nausea. No vomiting. No diarrhea. PHYSICAL EXAMINATION: VITAL SIGNS: Temperature 98.4, pulse 81, blood pressure 141/66. GENERAL APPEARANCE: Seems to be thin, in no acute distress. HEAD AND NECK: Slightly dry mouth. [place] conjunctivae. HEART: Normal rate. LUNGS: Clear. ABDOMEN: Soft and nontender. EXTREMITIES: No edema. Has left above-knee amputation. SKIN: Multiple pressure ulcers, worse in sacral area. NEUROLOGIC: Awake and responsive. LABORATORY AND DIAGNOSTIC DATA: WBC 14.9, hemoglobin 10.6, hematocrit 32.2, and platelets 308,000. Sodium 137, potassium 4.5, chloride 100, bicarbonate 27, BUN 97, and creatinine 4.6. Glucose 186. Chest x-ray showed slightly increased bilateral interstitial and mild airspace disease. Echocardiogram showed ejection fraction of 65% to 70%. VRE screen is positive. MRSA screen is negative. IMPRESSION: Leukocytosis. The patient has mild airspace disease, may have pneumonia; multiple pressure ulcers and deep tissue injuries, most significant in sacral area. He has diabetes mellitus, end-stage renal disease on hemodialysis, and hypertension. The patient has anemia, has G-tube placement. RECOMMENDATION: Continue Levaquin. We will add doxycycline for treatment of possible pneumonia, wound infection of sacral area. Case was discussed with Dr. Rodriguez, the surgeon, who does not believe the patient will benefit from treatment of osteomyelitis and does not need surgical procedure. At the end of my exam, I thank Dr. Santoro for involving me in the care of this patient. Enoch Chisholm M.D. DR: RITIKA JOB#: [id number] CC: MARIE
[2019-01-16] MEDS: Atorvastatin 20mg tab GT SCH (21:32)
--- NOTE | 2019-01-16 23:00 | NUR ---
NURSE NOTES: G-tube in place, infusing Nepro 40 ml/hr. flushed with sterile water 50 ml. 5 ml residual noted. no c/o of pain, nausea, or vomiting. no acute distress noted. elevated HOB. will continue to monitor. Addendum: 01/17/19 at 0215 by Marcelina Townsend RN flushed with water 150 ml.
[2019-01-17] VITALS: BP 134/78
--- NOTE | 2019-01-17 | NUR ---
NURSE NOTES: G-tube in place, infusing Nepro @ 40 ml/hr. flushed with water 150 ml. 0 ml residual noted. no c/o of pain, nausea, or vomiting. no acute distress noted. elevated HOB. will continue to monitor.
[2019-01-17] MEDS: NovoLOG Insulin Flexpen SUBQ SCH ×3 (00:03→11:38)
--- NOTE | 2019-01-17 04:00 | NUR ---
NURSE NOTES: G-tube in place, infusing Nepro @ 40 ml/hr. flushed with water 150 ml. 0 ml residual noted. no s/s of acute distress noted.no c/o of pain, nausea, or vomiting. elevated HOB. will continue to monitor.
--- NOTE | 2019-01-17 06:20 | Hematology/Onc Progress Note ---
Assessment/Plan Assessment/Plan Assessment and Recs: # Anemia of chronic disease due to underlying chronic medical issues, multifactorial --> Anemia workup has been ordered, rule out gi bleed --> No evidence of hemolysis is noted, peripheral smear has been reviewed. --> Hgb goal >7. Transfuse prn. --> Epogen started given on hd --> does not require iron at this time --> Medications have been reviewed --> hgb trend 7.4-->10.4-->10.6 --> ferritin is 1095 # Leukocytosis/elevated white blood cell count, unspecified likely related to underlying stress reaction, v infection --> have reviewed peripheral smear and bandemia/neutrophilia noted --> meds reviewed --> trend 11-->13-->14.9 --> monitor for resolution --> on levofloxacin --> VRE++ of rectum # ESRD on hd --> as per renal --> epo # Sacral decub wounds --> per surg --> wound care # BPH # Dvt ppx scds Appreciate consultation and debi RN. Subjective HEENT: Denies: no symptoms, eye pain, blurred vision, tearing, double vision, ear pain, ear discharge, nose pain, nose congestion, throat pain, throat swelling, mouth pain, mouth swelling, other Cardiovascular: Denies: no symptoms, chest pain, edema, irregular heart rate, lightheadedness, palpitations, syncope, other Respiratory: Denies: no symptoms, cough, shortness of breath, SOB with excertion, SOB at rest, sputum, wheezing, other Gastrointestinal/Abdominal: Denies: no symptoms, abdomen distended, abdominal pain, black stools, tarry stools, blood in stool, constipated, diarrhea, difficulty swallowing, nausea, poor appetite, poor fluid intake, rectal bleeding , vomiting, other Genitourinary: Denies: no symptoms, burning, discharge, frequency, flank pain, hematuria, incontinence, pain, urgency, other Neurologic/Psychiatric: Denies: no symptoms, anxiety, depressed, emotional problems, headache, numbness, paresthesia, pre-existing deficit, seizure, tingling, tremors, weakness, other Endocrine: Denies: no symptoms, excessive sweating, flushing, intolerance to cold, intolerance to heat, increased hunger, increased thirst, increased urine, unexplained weight gain, unexplained weight loss, other Hematologic/Lymphatic: Denies: no symptoms, anemia, easy bleeding, easy bruising, adenopathy, other Allergies: Coded Allergies: PENICILLINS (Verified Allergy, Unknown, 01/11/19) Subjective 01/14: no bleeding, cbc reviewed, no f/c, back on gtube feeds 01/15: no events, wbc is lower, no bleeding, wound care 01/16: no overnight events, wbc remains elevated, on levofloxacin 01/17: remains on abx, no major changes, no bleeding, cbc reviewed Objective Objective Current Medications Medications (Trade) Dose Ordered Sig/Mariangel Route PRN Reason Start Time Stop Time Status Last Admin Dose Admin Atorvastatin Calcium (Lipitor) 20 mg BEDTIME GT 01/13/19 21:00 02/10/19 20:59 01/16/19 21:32 Carvedilol (Coreg) 6.25 mg EVERY 12 HOURS GT 01/13/19 21:00 02/10/19 20:59 01/16/19 21:32 Dextrose (Dextrose 50%) 25 ml Q30M PRN IV Hypoglycemia 01/13/19 17:15 02/10/19 20:44 01/15/19 11:53 Dextrose (Dextrose 50%) 50 ml Q30M PRN IV Hypoglycemia 01/13/19 17:15 02/10/19 20:44 01/13/19 17:54 Docusate Sodium (Colace) 100 mg TID GT 01/13/19 18:00 02/10/19 17:59 01/16/19 08:50 Epoetin Bartolome (Epoetin Bartolome(ESRD on dialysis)) 10,000 unit THU-THU-THU SUBQ 01/14/19 21:00 02/11/19 20:59 01/14/19 20:31 Famotidine (Pepcid) 20 mg BID GT 01/13/19 18:00 02/11/19 17:59 01/16/19 08:50 Finasteride (Proscar) 5 mg DAILY ORAL 01/14/19 09:00 02/11/19 08:59 01/16/19 08:50 Insulin Aspart (NovoLOG) EVERY 6 HOURS SUBQ 01/13/19 18:30 02/11/19 18:29 01/17/19 05:39 Insulin Detemir (Levemir) 14 units QHS SUBQ 01/16/19 21:00 02/13/19 08:59 01/16/19 21:35 Lactulose (Cephulac) 20 gm DAILY GT 01/14/19 09:00 02/11/19 08:59 01/16/19 08:51 Levofloxacin (Levaquin) 500 mg Q48H ORAL 01/15/19 14:00 01/22/19 13:59 01/15/19 14:00 Sodium Hypochlorite (Dakin's Quarter Strength) 1 applic Q12HR TOPIC 01/15/19 21:00 02/11/19 17:59 01/16/19 21:32 Vitamin B Complex/ Vit C/Folic Acid (Nephrovite) 1 tab DAILY GT 01/14/19 09:00 02/11/19 08:59 01/16/19 08:50 Zinc Sulfate (Zinc Sulfate) 220 mg DAILY GT 01/14/19 09:00 02/11/19 08:59 01/16/19 08:50 Last 24 Hour Vital Signs Date Time Temp Pulse Resp B/P (MAP) Pulse Ox O2 Delivery O2 Flow Rate FiO2 01/17/19 04:00 98.8 89 20 98 01/17/19 00:00 98.7 90 18 134/78 (96) 96 01/16/19 21:32 81 153/86 01/16/19 21:00 Room Air 01/16/19 20:00 97.5 81 20 153/86 (108) 97 01/16/19 17:53 Room Air 01/16/19 16:00 98.4 80 17 138/70 (92) 95 01/16/19 12:00 98.4 81 18 141/66 (91) 95 01/16/19 09:00 Room Air 01/16/19 08:50 88 147/67 01/16/19 08:00 97.8 88 18 147/67 (93) 95 01/16/19 04:00 97.5 84 20 150/66 (94) 95 01/16/19 00:00 98.0 82 21 152/74 (100) 95 01/15/19 21:00 Room Air 01/15/19 20:31 89 135/78 01/15/19 20:00 97.0 89 20 135/78 (97) 97 01/15/19 16:44 97.3 83 20 135/58 (83) 94 01/15/19 12:00 98.6 81 19 115/53 (73) 94 01/15/19 09:12 81 100/63 01/15/19 09:00 Room Air 01/15/19 08:00 98.2 81 19 100/63 (75) 94 Intake and Output 01/16/19 01/17/19 18:59 06:59 Intake Total 440 ml 850 ml Balance 440 ml 850 ml Intake Free Water 450 ml Tube Feeding 440 ml 400 ml # Voids 1 # Bowel Movements 1 Labs Test 01/15/19 05:50 01/16/19 06:00 White Blood Count 15.6 K/UL (4.8-10.8) 14.9 K/UL (4.8-10.8) Red Blood Count 3.65 M/UL (4.70-6.10) 3.60 M/UL (4.70-6.10) Hemoglobin 10.8 G/DL (14.2-18.0) 10.6 G/DL (14.2-18.0) Hematocrit 32.5 % (42.0-52.0) 32.2 % (42.0-52.0) Mean Corpuscular Volume 89 FL (80-99) 90 FL (80-99) Mean Corpuscular Hemoglobin 29.6 PG (27.0-31.0) 29.4 PG (27.0-31.0) Mean Corpuscular Hemoglobin Concent 33.3 G/DL (32.0-36.0) 32.8 G/DL (32.0-36.0) Red Cell Distribution Width 14.2 % (11.6-14.8) 14.3 % (11.6-14.8) Platelet Count 304 K/UL (150-450) 308 K/UL (150-450) Mean Platelet Volume 4.6 FL (6.5-10.1) 4.6 FL (6.5-10.1) Neutrophils (%) (Auto) 82.5 % (45.0-75.0) % (45.0-75.0) Lymphocytes (%) (Auto) 6.9 % (20.0-45.0) % (20.0-45.0) Monocytes (%) (Auto) 7.9 % (1.0-10.0) % (1.0-10.0) Eosinophils (%) (Auto) 2.1 % (0.0-3.0) % (0.0-3.0) Basophils (%) (Auto) 0.7 % (0.0-2.0) % (0.0-2.0) Sodium Level 139 MMOL/L (136-145) 137 MMOL/L (136-145) Potassium Level 4.1 MMOL/L (3.5-5.1) 4.5 MMOL/L (3.5-5.1) Chloride Level 100 MMOL/L (98-107) 100 MMOL/L (98-107) Carbon Dioxide Level 29 MMOL/L (21-32) 27 MMOL/L (21-32) Anion Gap 10 mmol/L (5-15) 10 mmol/L (5-15) Blood Urea Nitrogen 75 mg/dL (7-18) 97 mg/dL (7-18) Creatinine 3.8 MG/DL (0.55-1.30) 4.6 MG/DL (0.55-1.30) Estimat Glomerular Filtration Rate mL/min (>60) mL/min (>60) Glucose Level 78 MG/DL (74-106) 186 MG/DL (74-106) Calcium Level 9.2 MG/DL (8.5-10.1) 9.7 MG/DL (8.5-10.1) Phosphorus Level 4.6 MG/DL (2.5-4.9) 5.2 MG/DL (2.5-4.9) Magnesium Level 2.1 MG/DL (1.8-2.4) 2.4 MG/DL (1.8-2.4) Total Bilirubin 0.4 MG/DL (0.2-1.0) 0.5 MG/DL (0.2-1.0) Aspartate Amino Transf (AST/SGOT) 28 U/L (15-37) 23 U/L (15-37) Alanine Aminotransferase (ALT/SGPT) 41 U/L (12-78) 32 U/L (12-78) Alkaline Phosphatase 182 U/L (46-116) 188 U/L (46-116) C-Reactive Protein, Quantitative 18.3 mg/dL (0.00-0.90) 22.4 mg/dL (0.00-0.90) Total Protein 7.6 G/DL (6.4-8.2) 7.4 G/DL (6.4-8.2) Albumin 1.9 G/DL (3.4-5.0) 1.9 G/DL (3.4-5.0) Globulin 5.7 g/dL 5.5 g/dL Albumin/Globulin Ratio 0.3 (1.0-2.7) 0.3 (1.0-2.7) Differential Total Cells Counted 100 Neutrophils % (Manual) 84 % (45-75) Lymphocytes % (Manual) 7 % (20-45) Monocytes % (Manual) 6 % (1-10) Eosinophils % (Manual) 2 % (0-3) Basophils % (Manual) 0 % (0-2) Band Neutrophils 1 % (0-8) Platelet Estimate Adequate Platelet Morphology Normal Anisocytosis 1+ Height (Feet): 5 Height (Inches): 9.00 Weight (Pounds): 173 Objective Physical Exam: Vitals: reviewed General Appearance: NAD HEENT: normocephalic, atraumatic Neck: non-tender, normal alignment Respiratory/Chest: normal breath sounds bilaterally Cardiovascular/Chest: normal peripheral pulses, normal rate Abdomen: normal bowel sounds, soft, nontender Extremities: normal range of motion ++ catheter replaced by Kashmir Akhtar MD Jan 17, 2019 06:20
--- NOTE | 2019-01-17 07:02 | General Progress Note ---
Assessment/Plan Problem List: (1) Hypoglycemia ICD Codes: E16.2 - Hypoglycemia, unspecified SNOMED: 912553337 (2) Diabetes mellitus out of control ICD Codes: E11.65 - Type 2 diabetes mellitus with hyperglycemia SNOMED: 05285852, 753838618 (3) ESRD (end stage renal disease) on dialysis ICD Codes: N18.6 - End stage renal disease; Z99.2 - Dependence on renal dialysis SNOMED: 909388021 Status: progressing Assessment/Plan: continue Levemir 14 units qhs continue NISS Subjective ROS Limited/Unobtainable: Yes Allergies: Coded Allergies: PENICILLINS (Verified Allergy, Unknown, 01/11/19) Subjective events glucose values improving Item Value Date Time Bedside Blood Glucose 165 mg/dl H 01/17/19 0600 Bedside Blood Glucose 183 mg/dl H 01/17/19 0003 Bedside Blood Glucose 193 mg/dl H 01/16/19 2135 Bedside Blood Glucose 188 mg/dl H 01/16/19 1712 Bedside Blood Glucose 201 mg/dl H 01/16/19 1224 Bedside Blood Glucose 247 mg/dl H 01/16/19 0103 Objective Last 24 Hour Vital Signs Date Time Temp Pulse Resp B/P (MAP) Pulse Ox O2 Delivery O2 Flow Rate FiO2 01/17/19 04:00 98.8 89 20 98 01/17/19 00:00 98.7 90 18 134/78 (96) 96 01/16/19 21:32 81 153/86 01/16/19 21:00 Room Air 01/16/19 20:00 97.5 81 20 153/86 (108) 97 01/16/19 17:53 Room Air 01/16/19 16:00 98.4 80 17 138/70 (92) 95 01/16/19 12:00 98.4 81 18 141/66 (91) 95 01/16/19 09:00 Room Air 01/16/19 08:50 88 147/67 01/16/19 08:00 97.8 88 18 147/67 (93) 95 Intake and Output 01/16/19 01/17/19 18:59 06:59 Intake Total 440 ml 850 ml Balance 440 ml 850 ml Intake Free Water 450 ml Tube Feeding 440 ml 400 ml # Voids 1 # Bowel Movements 1 Height (Feet): 5 Height (Inches): 9.00 Weight (Pounds): 173 General Appearance: no apparent distress Neck: normal alignment Cardiovascular: normal rate Respiratory/Chest: lungs clear Abdomen: normal bowel sounds Pelvis: normal external exam Objective Current Medications Medications (Trade) Dose Ordered Sig/Mariangel Route PRN Reason Start Time Stop Time Status Last Admin Dose Admin Atorvastatin Calcium (Lipitor) 20 mg BEDTIME GT 01/13/19 21:00 02/10/19 20:59 01/16/19 21:32 Carvedilol (Coreg) 6.25 mg EVERY 12 HOURS GT 01/13/19 21:00 02/10/19 20:59 01/16/19 21:32 Dextrose (Dextrose 50%) 25 ml Q30M PRN IV Hypoglycemia 01/13/19 17:15 02/10/19 20:44 01/15/19 11:53 Dextrose (Dextrose 50%) 50 ml Q30M PRN IV Hypoglycemia 01/13/19 17:15 02/10/19 20:44 01/13/19 17:54 Docusate Sodium (Colace) 100 mg TID GT 01/13/19 18:00 02/10/19 17:59 01/16/19 08:50 Epoetin Bartolome (Epoetin Bartolome(ESRD on dialysis)) 10,000 unit THU-THU-THU SUBQ 01/14/19 21:00 02/11/19 20:59 01/14/19 20:31 Famotidine (Pepcid) 20 mg BID GT 01/13/19 18:00 02/11/19 17:59 01/16/19 08:50 Finasteride (Proscar) 5 mg DAILY ORAL 01/14/19 09:00 02/11/19 08:59 01/16/19 08:50 Insulin Aspart (NovoLOG) EVERY 6 HOURS SUBQ 01/13/19 18:30 02/11/19 18:29 01/17/19 05:39 Insulin Detemir (Levemir) 14 units QHS SUBQ 01/16/19 21:00 02/13/19 08:59 01/16/19 21:35 Lactulose (Cephulac) 20 gm DAILY GT 01/14/19 09:00 02/11/19 08:59 01/16/19 08:51 Levofloxacin (Levaquin) 500 mg Q48H ORAL 01/15/19 14:00 01/22/19 13:59 01/15/19 14:00 Sodium Hypochlorite (Dakin's Quarter Strength) 1 applic Q12HR TOPIC 01/15/19 21:00 02/11/19 17:59 01/16/19 21:32 Vitamin B Complex/ Vit C/Folic Acid (Nephrovite) 1 tab DAILY GT 01/14/19 09:00 02/11/19 08:59 01/16/19 08:50 Zinc Sulfate (Zinc Sulfate) 220 mg DAILY GT 01/14/19 09:00 02/11/19 08:59 01/16/19 08:50 Juan Lucero MD Jan 17, 2019 07:02
--- NOTE | 2019-01-17 07:36 | NUR ---
HAND-OFF: Report given to William DUARTE.
--- NOTE | 2019-01-17 07:37 | NUR ---
NURSE NOTES: Received pt in bed, AAO x 2 and confused. Room air. IV 22g on R hand noted, with saline lock. Perma-cath on R chest noted. Bed in the lowest, locked, and alarm on. Call light within reach. Will continue to monitor
[2019-01-17 07:41] LABS: BASOPHILS % (AUTO) 0.3 % (0.0-2.0); EOSINOPHILS % (AUTO) 2.1 % (0.0-3.0); HEMOGLOBIN 10.2 G/DL (14.2-18.0); LYMPHOCYTES % (AUTO) 7.2 % (20.0-45.0); MEAN CORPUSCULAR VOLUME 89 FL (80-99); MONOCYTES % (AUTO) 6.6 % (1.0-10.0); NEUTROPHILS % (AUTO) 83.8 % (45.0-75.0); PLATELET COUNT 271 K/UL (150-450); RED BLOOD COUNT 3.49 M/UL (4.70-6.10); WHITE BLOOD COUNT 15.5 K/UL (4.8-10.8)
[2019-01-17 08:00] VITALS: BP 145/73
[2019-01-17] MEDS: Carvedilol 6.25mg Tab GT SCH (08:00)
[2019-01-17 08:11] LABS: ALANINE AMINOTRANSFERASE 31 U/L (12-78); ALBUMIN 1.8 G/DL (3.4-5.0); ALBUMIN/GLOBULIN RATIO 0.3 (1.0-2.7); ALKALINE PHOSPHATASE 180 U/L (46-116); ANION GAP 12 mmol/L (5-15); ASPARTATE AMINO TRANSFERASE 20 U/L (15-37); BILIRUBIN,TOTAL 0.4 MG/DL (0.2-1.0); BLOOD UREA NITROGEN 116 mg/dL (7-18); CALCIUM 9.5 MG/DL (8.5-10.1); CARBON DIOXIDE 26 MMOL/L (21-32); CHLORIDE 100 MMOL/L (98-107); CREATININE 5.5 MG/DL (0.55-1.30); PHOSPHORUS 6.2 MG/DL (2.5-4.9); POTASSIUM 4.1 MMOL/L (3.5-5.1); SODIUM 138 MMOL/L (136-145)
[2019-01-17] MEDS: Lactulose 20gm/30ml UDC GT SCH (08:16)
[2019-01-17] MEDS: Docusate 100mg/10ml Liq GT SCH ×2 (08:16→13:11)
[2019-01-17] MEDS: Zinc Sulfate 220mg cap GT SCH (08:17)
[2019-01-17] MEDS: Dakin's 0.125% Soln (Quarter Strength) 16oz TOPIC SCH (08:17)
[2019-01-17] MEDS: Nephrovite tab (Rena-Vite) GT SCH (08:17)
--- NOTE | 2019-01-17 09:00 | NUR ---
NURSE NOTES: Patient is having dialysis
[2019-01-17 12:00] VITALS: BP 103/52
--- NOTE | 2019-01-17 12:26 | NUR ---
DISCHARGED PLANNED: PATIENT HAS BEEN ACCEPTED BACK TO [facility] ROOM # [id number] T: [phone] FOR NURSE TO NURSE REPORT NURSES PLEASE CALL [facility] FOR TRANSPORTATION
--- NOTE | 2019-01-17 12:50 | Infectious Diseases Prog Note ---
Assessment/Plan Assessment/Plan IMPRESSION: Leukocytosis. mild airspace disease, ? pneumonia; multiple pressure ulcers and deep tissue injuries, Diabetes mellitus, End-stage renal disease on hemodialysis, Hypertension. Anemia, has G-tube Statue RECOMMENDATION: Continue Levaquin & doxycycline X 5 days Agree with discharge Subjective ROS Limited/Unobtainable: Yes Constitutional: Reports: no symptoms Respiratory: Reports: no symptoms Gastrointestinal/Abdominal: Reports: no symptoms Genitourinary: Reports: no symptoms Allergies: Coded Allergies: PENICILLINS (Verified Allergy, Unknown, 01/11/19) Objective Vital Signs Last 24 Hour Vital Signs Date Time Temp Pulse Resp B/P (MAP) Pulse Ox O2 Delivery O2 Flow Rate FiO2 01/17/19 09:00 Room Air 01/17/19 08:00 97.8 81 19 145/73 (97) 93 01/17/19 04:00 98.8 89 20 98 01/17/19 00:00 98.7 90 18 134/78 (96) 96 01/16/19 21:32 81 153/86 01/16/19 21:00 Room Air 01/16/19 20:00 97.5 81 20 153/86 (108) 97 01/16/19 17:53 Room Air 01/16/19 16:00 98.4 80 17 138/70 (92) 95 Height (Feet): 5 Height (Inches): 9.00 Weight (Pounds): 175 General Appearance: no acute distress HEENT: mucous membranes moist Respiratory/Chest: lungs clear, other - oxygen by nasal cannula Cardiovascular: normal rate Abdomen: soft, non tender, other - Gt feeding Extremities: no edema Skin: ulcers Neurologic/Psychiatric: alert, responsive Laboratory Tests Test 01/17/19 06:45 White Blood Count 15.5 K/UL (4.8-10.8) H Red Blood Count 3.49 M/UL (4.70-6.10) L Hemoglobin 10.2 G/DL (14.2-18.0) L Hematocrit 31.0 % (42.0-52.0) L Mean Corpuscular Volume 89 FL (80-99) Mean Corpuscular Hemoglobin 29.3 PG (27.0-31.0) Mean Corpuscular Hemoglobin Concent 33.0 G/DL (32.0-36.0) Red Cell Distribution Width 14.0 % (11.6-14.8) Platelet Count 271 K/UL (150-450) Mean Platelet Volume 4.5 FL (6.5-10.1) L Neutrophils (%) (Auto) 83.8 % (45.0-75.0) H Lymphocytes (%) (Auto) 7.2 % (20.0-45.0) L Monocytes (%) (Auto) 6.6 % (1.0-10.0) Eosinophils (%) (Auto) 2.1 % (0.0-3.0) Basophils (%) (Auto) 0.3 % (0.0-2.0) Sodium Level 138 MMOL/L (136-145) Potassium Level 4.1 MMOL/L (3.5-5.1) Chloride Level 100 MMOL/L (98-107) Carbon Dioxide Level 26 MMOL/L (21-32) Anion Gap 12 mmol/L (5-15) Blood Urea Nitrogen 116 mg/dL (7-18) H Creatinine 5.5 MG/DL (0.55-1.30) H Estimat Glomerular Filtration Rate mL/min (>60) Glucose Level 168 MG/DL (74-106) H Calcium Level 9.5 MG/DL (8.5-10.1) Phosphorus Level 6.2 MG/DL (2.5-4.9) H Magnesium Level 2.5 MG/DL (1.8-2.4) H Total Bilirubin 0.4 MG/DL (0.2-1.0) Aspartate Amino Transf (AST/SGOT) 20 U/L (15-37) Alanine Aminotransferase (ALT/SGPT) 31 U/L (12-78) Alkaline Phosphatase 180 U/L (46-116) H C-Reactive Protein, Quantitative 25.2 mg/dL (0.00-0.90) H Pro-B-Type Natriuretic Peptide 9010 pg/mL (0-125) H Total Protein 7.2 G/DL (6.4-8.2) Albumin 1.8 G/DL (3.4-5.0) L Globulin 5.4 g/dL Albumin/Globulin Ratio 0.3 (1.0-2.7) L Random Vancomycin Level 11.0 ug/mL Current Medications Medications (Trade) Dose Ordered Sig/Mariangel Route PRN Reason Start Time Stop Time Status Last Admin Dose Admin Atorvastatin Calcium (Lipitor) 20 mg BEDTIME GT 01/13/19 21:00 02/10/19 20:59 01/16/19 21:32 Carvedilol (Coreg) 6.25 mg EVERY 12 HOURS GT 01/13/19 21:00 02/10/19 20:59 01/16/19 21:32 Dextrose (Dextrose 50%) 25 ml Q30M PRN IV Hypoglycemia 01/13/19 17:15 02/10/19 20:44 01/15/19 11:53 Dextrose (Dextrose 50%) 50 ml Q30M PRN IV Hypoglycemia 01/13/19 17:15 02/10/19 20:44 01/13/19 17:54 Docusate Sodium (Colace) 100 mg TID GT 01/13/19 18:00 02/10/19 17:59 01/17/19 08:16 Epoetin Bartolome (Epoetin Bartolome(ESRD on dialysis)) 10,000 unit THU-THU-THU SUBQ 01/14/19 21:00 02/11/19 20:59 01/14/19 20:31 Famotidine (Pepcid) 20 mg BID GT 01/13/19 18:00 02/11/19 17:59 01/17/19 08:17 Finasteride (Proscar) 5 mg DAILY ORAL 01/14/19 09:00 02/11/19 08:59 01/17/19 08:17 Insulin Aspart (NovoLOG) EVERY 6 HOURS SUBQ 01/13/19 18:30 02/11/19 18:29 01/17/19 05:39 Insulin Detemir (Levemir) 14 units QHS SUBQ 01/16/19 21:00 02/13/19 08:59 01/16/19 21:35 Lactulose (Cephulac) 20 gm DAILY GT 01/14/19 09:00 02/11/19 08:59 01/17/19 08:16 Levofloxacin (Levaquin) 500 mg Q48H ORAL 01/15/19 14:00 01/22/19 13:59 01/15/19 14:00 Sodium Hypochlorite (Dakin's Quarter Strength) 1 applic Q12HR TOPIC 01/15/19 21:00 02/11/19 17:59 01/17/19 08:17 Vitamin B Complex/ Vit C/Folic Acid (Nephrovite) 1 tab DAILY GT 01/14/19 09:00 02/11/19 08:59 01/17/19 08:17 Zinc Sulfate (Zinc Sulfate) 220 mg DAILY GT 01/14/19 09:00 02/11/19 08:59 01/17/19 08:17 Enoch Chisholm MD Jan 17, 2019 12:50
[2019-01-17] MEDS: Levofloxacin 500mg tab ORAL SCH (13:11)
[2019-01-17] MEDS ORDERED: LEVAQUIN500 MG ORAL (15:13)
[2019-01-17] MEDS ORDERED: DOXYCYCLINE MO100 MG ORAL (15:25)
--- NOTE | 2019-01-17 15:26 | Nephrology Progress Note ---
Assessment/Plan Problem List: (1) ESRD (end stage renal disease) on dialysis (2) Complications, dialysis, catheter, mechanical (3) Anemia in chronic kidney disease (CKD) Assessment Malfunctioning dialysis catheter ESRD , Uremia DM OOC Anemia of CKD BPH Plan One gram Vanco IV for high WBCs on 01/15/19 HD today- in process when seen. Tolerating well. Per ID previously ANCA kidney noted Dialysis done 01/12 after cath replaced by IR EPO Per consultants 2D echo Left ventricular ejection fraction estimated to be 65-70 %. dialysis again 01/14- in process when patient seen- tolerating well. Echo: Left ventricular ejection fraction estimated to be 65-70 %. No left ventricular hypertrophy. Subjective ROS Limited/Unobtainable: No Constitutional: Reports: malaise Objective Objective Last 24 Hour Vital Signs Date Time Temp Pulse Resp B/P (MAP) Pulse Ox O2 Delivery O2 Flow Rate FiO2 01/17/19 12:00 97.8 72 18 103/52 (69) 95 01/17/19 09:00 Room Air 01/17/19 08:00 97.8 81 19 145/73 (97) 93 01/17/19 04:00 98.8 89 20 98 01/17/19 00:00 98.7 90 18 134/78 (96) 96 01/16/19 21:32 81 153/86 01/16/19 21:00 Room Air 01/16/19 20:00 97.5 81 20 153/86 (108) 97 01/16/19 17:53 Room Air 01/16/19 16:00 98.4 80 17 138/70 (92) 95 Intake and Output 01/16/19 01/17/19 19:00 07:00 Intake Total 400 ml 850 ml Balance 400 ml 850 ml Intake Free Water 450 ml Tube Feeding 400 ml 400 ml # Voids 1 # Bowel Movements 1 Laboratory Tests 01/17/19 06:45: White Blood Count 15.5H, Red Blood Count 3.49L, Hemoglobin 10.2L, Hematocrit 31.0L, Mean Corpuscular Volume 89, Mean Corpuscular Hemoglobin 29.3, Mean Corpuscular Hemoglobin Concent 33.0, Red Cell Distribution Width 14.0, Platelet Count 271, Mean Platelet Volume 4.5L, Neutrophils (%) (Auto) 83.8H, Lymphocytes (%) (Auto) 7.2L, Monocytes (%) (Auto) 6.6, Eosinophils (%) (Auto) 2.1, Basophils (%) (Auto) 0.3, Sodium Level 138, Potassium Level 4.1, Chloride Level 100, Carbon Dioxide Level 26, Anion Gap 12, Blood Urea Nitrogen 116H, Creatinine 5.5H, Estimat Glomerular Filtration Rate , Glucose Level 168H, Calcium Level 9.5, Phosphorus Level 6.2H, Magnesium Level 2.5H, Total Bilirubin 0.4, Aspartate Amino Transf (AST/SGOT) 20, Alanine Aminotransferase (ALT/SGPT) 31, Alkaline Phosphatase 180H, C-Reactive Protein, Quantitative 25.2H, Pro-B- Type Natriuretic Peptide 9010H, Total Protein 7.2, Albumin 1.8L, Globulin 5.4, Albumin/Globulin Ratio 0.3L, Random Vancomycin Level 11.0 Height (Feet): 5 Height (Inches): 9.00 Weight (Pounds): 175 General Appearance: no apparent distress Cardiovascular: normal rate Respiratory/Chest: decreased breath sounds Abdomen: distended Objective no change Juan Eckert MD Jan 17, 2019 15:26
--- NOTE | 2019-01-17 15:30 | NUR ---
NURSE NOTES: Patient is discharged to [facility] in stable condition via ambulance. report was given to Oanh. ID and IV was removed. No s/s of infection on the removal site. Picture was taken on R foot, sacral, and bilateral ischium. Belongings were accounted and given to patient.
--- NOTE | 2019-01-18 10:48 | Discharge Summary ---
Discharge Summary Discharge Summary _ DATE OF ADMISSION: 01/11/2019 DATE OF DISCHARGE: 01/17/2019 DISCHARGED BY: Dr. Mcclure REASON FOR ADMISSION: 78 years old male with past medical history of diabetes mellitus, end-stage renal disease , on hemodialysis, hypertension, hyperlipidemia, was sent from the assisted facility for evaluation . Apparently dialysis catheter was not working properly, when patient was receiving dialysis. Patient denied fever and chills. Patient denied chest pain or shortness of breath. Upon evaluation vital signs were stable. Laboratory work-up revealed mild leukocytosis WBC 11, hemoglobin 7.4 , hematocrit 23, platelet count 292. Stable electrolytes. BUN 158 . Creatinine 5.3. Patient subsequently admitted for further management. CONSULTANTS: ID specialist Dr. Chisholm parole hearing officer Dr. Eckert assembler garment form/oncologist Dr. Gomez surgery Dr. Rodriguez [facility]: Patient admitted. Patient initially received alteplase. Hemodialysis catheter was still not functional. Patient subsequently undergone exchange of hemo dialysis catheter by interventional radiology. Subsequently hemodialysis provided as per parole hearing officer recommendations with close monitoring of volumes and renal parameters. Electrolytes further corrected as needed. TSH was within normal limits. Renal ultrasound revealed no evidence of hydronephrosis. Normal renal size and echogenicity. Echocardiogram demonstrated preserved ejection fraction 65 to 70% with no evidence of left ventricular hypertrophy. No evidence of wall motion abnormality. Right ventricular systolic pressure of 52 consistent with moderate pulmonary hypertension is Statin continued along with beta-sofi. Blood sugar was managed with long-acting Levemir and sliding scale of insulin as needed. Patient initially had one episode of hypoglycemia. Anti-glycemic regimen was titrated as per taxicab dispatcher. No further episodes of hypoglycemia. Blood sugar improved. Hemoglobin A1c 7.3 Hemoglobin and hematocrit were closely monitored with goal to keep hemoglobin above 7. Patient undergone initially transfusion of 2 units of packed red blood cells. After transfusion hemoglobin and hematocrit remained at the baseline. Prior to discharge hemoglobin 10.2, hematocrit 31. Anemia work-up was consistent with anemia of chronic disease, ferritin high 1095. Folate and B12 stable. Patient started on Epogen with hemodialysis. GI prophylaxis provided. Proscar continued . Bowel regimen instituted Patient was on antibiotic for possible pneumonia as per ID specialist recommendation. Patient was follow-up with a chest x-ray. Patient was followed -up with chest x-ray. Supplemental oxygen provided and titrated to keep pulse oximetry above 92%. Patient had no fever, but still was with leukocytosis. ID specialist recommended continue antibiotics as outpatient to complete the course. Patient was discharged on Levaquin and doxycycline for additional 5 days. Strict aspiration precaution maintained. Patient presented with multiply pressure injuries and ulcers on admission. Wound care provided as per surgeon recommendation. Continue wound care at the facility. Supportive care provided. Patient clinically stabilized and was ready for transfer back to assisted facility for continuation of care. FINAL DIAGNOSES: Malfunctioning hemodialysis catheter, status post exchange by interventional radiologist End-stage renal disease on hemodialysis Uremia Anemia of chronic kidney disease Diabetes mellitus [id number] Hypoglycemia BPH Possible pneumonia Leukocytosis Hypertension G-tube status Multiple pressure ulcers and deep tissue injuries, DISCHARGE MEDICATIONS: See Medication Reconciliation list. DISCHARGE INSTRUCTIONS: Patient was discharged to the assisted facility. Follow up with medical doctor at the facility. Follow-up with outpatient hemodialysis as scheduled. I have been assigned to dictate discharge summary for this account. I was not involved in the patient's management. Daiana Harrington NP Jan 18, 2019 10:48
== END 2019-01-17 15:55 | DRG 314 ==
LOC: EDBD 15:04 → EMR 15:22 → 2E 15:58 → EDBEDREQ 16:30 → 2E 16:57 → 4E 01-13 17:40
PROC: 5A1D70Z Performance of Urinary Filtration, Intermittent, Less than 6 Hours Per Day (ICD-10-PCS; principal; 2019-01-16)
PROC: 0J2SXYZ Change Other Device in Head and Neck Subcutaneous Tissue and Fascia, External Approach (ICD-10-PCS; principal; 2019-01-16)
PROC: 30233N1 Transfusion of Nonautologous Red Blood Cells into Peripheral Vein, Percutaneous Approach (ICD-10-PCS; principal; 2019-01-16)
DX: T82.41XA Breakdown (mechanical) of vascular dialysis catheter, initial encounter (principal); N18.6 End stage renal disease; J18.9 Pneumonia, unspecified organism; I12.0 Hypertensive chronic kidney disease with stage 5 chronic kidney disease or end stage renal disease; Z43.1 Encounter for attention to gastrostomy; Y84.1 Kidney dialysis as the cause of abnormal reaction of the patient, or of later complication, without mention of misadventure at the time of the procedure; D63.1 Anemia in chronic kidney disease; Z88.0 Allergy status to penicillin; Z99.2 Dependence on renal dialysis; E11.22 Type 2 diabetes mellitus with diabetic chronic kidney disease; Z79.4 Long term (current) use of insulin; I27.20 Pulmonary hypertension, unspecified; E11.649 Type 2 diabetes mellitus with hypoglycemia without coma; N40.0 Benign prostatic hyperplasia without lower urinary tract symptoms; Z86.73 Personal history of transient ischemic attack (TIA), and cerebral infarction without residual deficits; E78.5 Hyperlipidemia, unspecified; L89.320 Pressure ulcer of left buttock, unstageable; L89.310 Pressure ulcer of right buttock, unstageable; L89.610 Pressure ulcer of right heel, unstageable; Z89.512 Acquired absence of left leg below knee
CPT/HCPCS: 36415; 71045; 76000; 76770; 80053; 80061; 80202; 82550; 82607; 82728; 82746; 82947; 82962; 82977; 83036; 83540; 83550; 83690; 83735; 83880; 84100; 84443; 84484; 84550; 85007; 85025; 85610; 85730; 86140; 86850; 86900; 86901; 86920; 87081; 87340; 93005; 93306; 99285; J1815; S0077; S5561